=== PATIENT | male | born 1975 | race Caucasian/White ===

== ENCOUNTER 2019-04-16 08:05 | Outpatient (CLI) | payer OTHER, SELFPAY ==
[2019-04-16 08:21] LABS: Basophils Absolute Auto 0.1 K/mm3 (0.0-0.1); Basophils Percent Auto 0.7 % (0.2-1.2); Eosinophils Absolute Auto 0.2 K/mm3 (0-0.3); Eosinophils Percent Auto 2.3 % (0-4.4); Hematocrit 42.2 % (42.0-52.0); Hemoglobin 14.7 g/dL (14.0-18.0); Immature Granulocyte Absolute 0.05 K/mm3 (0.00-0.031); Immature Granulocyte Percent A 0.6 % (0-0.5); Lymphocytes Absolute Auto 1.31 K/mm3 (0.9-3.2); Lymphocytes Percent Auto 16.2 % (18.3-44.2); Mean Corpuscular HGB Conc 34.8 g/dl (32-36); Mean Corpuscular Hemoglobin 39.3 pg (26-34); Mean Corpuscular Volume 112.8 fl (80-100); Mean Platelet Volume 9.1 fl (7.4-10.4); Monocytes Absolute Auto 0.8 K/mm3 (0.1-0.6); Monocytes Percent Auto 10.4 % (2.6-8.5); Neutrophils Absolute Auto 5.6 K/mm3 (1.3-6.7); Neutrophils Percent Auto 69.8 % (45.5-73.1); Platelet Count Result 219 k/mm3 (150-375); Red Blood Count 3.74 M/mm3 (4.6-6.20); Red Cell Distribution Width 12.6 % (11.5-14.5); White Blood Count 8.1 K/mm3 (4.5-10.0)
== END 2019-04-16 08:06 | disposition home or self-care (01) ==
PROVIDERS: PCP Family Medicine Adolescent Medicine; Visit Provider Internal Medicine Hematology & Oncology
DX: D75.1 Secondary polycythemia (principal)
CPT/HCPCS: 36415; 85025

== ENCOUNTER 2020-01-06 08:22 | Outpatient (CLI) | payer OTHER, SELFPAY ==
[2020-01-06 08:41] LABS: Basophils Absolute Auto 0.1 K/mm3 (0.0-0.1); Basophils Percent Auto 0.7 % (0.2-1.2); Eosinophils Absolute Auto 0.2 K/mm3 (0-0.3); Eosinophils Percent Auto 2.5 % (0-4.4); Hemoglobin 11.9 g/dL (14.0-18.0); Immature Granulocyte Absolute 0.04 K/mm3 (0.00-0.031); Immature Granulocyte Percent A 0.6 % (0-0.5); Lymphocytes Absolute Auto 1.17 K/mm3 (0.9-3.2); Lymphocytes Percent Auto 17.5 % (18.3-44.2); Mean Corpuscular Hemoglobin 41.6 pg (26-34); Mean Corpuscular Volume 118.9 fl (80-100); Mean Platelet Volume 9.4 fl (7.4-10.4); Monocytes Absolute Auto 0.6 K/mm3 (0.1-0.6); Monocytes Percent Auto 8.2 % (2.6-8.5); Neutrophils Absolute Auto 4.7 K/mm3 (1.3-6.7); Neutrophils Percent Auto 70.5 % (45.5-73.1); Platelet Count Result 174 k/mm3 (150-375); Red Blood Count 2.86 M/mm3 (4.6-6.20); Red Cell Distribution Width 13.8 % (11.5-14.5); White Blood Count 6.7 K/mm3 (4.5-10.0)
[2020-01-06 08:53] LABS: Blood Urea Nitrogen 4 mg/dL (8-26); Carbon Dioxide 31 mmol/L (22-30); Chloride 95 mmol/L (98-109); Estimated Glomerular Filt Rate > 60; Glucose 126 mg/dL (70-105); Potassium 3.7 mmol/L (3.5-4.9); Sodium 138 mmol/L (138-146)
[2020-01-06 17:56] LABS: Iron 309 ug/dL (49-181)
[2020-01-06 18:00] LABS: Alanine Aminotransferase 53 U/L (4-50); Alkaline Phosphatase 101 U/L (38-126); Anion Gap 9 mmol/L (8-16); Aspartate Amino Transferase 111 U/L (17-59); Bilirubin,Total 1.2 mg/dL (0.2-1.3); Blood Urea Nitrogen 6 mg/dL (9-20); Calcium 9.1 mg/dL (8.4-10.2); Carbon Dioxide 32 mmol/L (22-30); Chloride 97 mmol/L (98-107); Estimated Glomerular Filt Rate > 60; Glucose 134 mg/dL (75-110); Lactate Dehydrogenase 708 U/L (313-618); Potassium 4.3 mmol/L (3.4-5.0); Sodium 138 mmol/L (137-145)
[2020-01-06 18:06] LABS: Percent Iron Saturation 88 % (20-50)
[2020-01-06 19:05] LABS: Folic Acid 1.6 ng/mL (2.76->20)
[2020-01-09 12:20] LABS: Methylmalonic Acid 133 nmol/L (87-318)
== END 2020-01-06 08:23 | disposition home or self-care (01) ==
PROVIDERS: PCP Family Medicine Adolescent Medicine; Visit Provider Internal Medicine Hematology & Oncology
DX: D64.9 Anemia, unspecified (principal); R53.83 Other fatigue; D75.1 Secondary polycythemia
CPT/HCPCS: 36415; 80048; 80053; 82607; 82728; 82746; 83540; 83550; 83615; 83921; 84443; 85025

== ENCOUNTER 2020-05-24 08:28 | Outpatient (CLI) | payer OTHER, SELFPAY ==
[2020-05-24 08:41] LABS: Basophils Absolute Auto 0.1 K/mm3 (0.0-0.1); Eosinophils Absolute Auto 0.2 K/mm3 (0-0.3); Eosinophils Percent Auto 1.6 % (0-4.4); Hematocrit 44.1 % (42.0-52.0); Hemoglobin 14.9 g/dL (14.0-18.0); Immature Granulocyte Absolute 0.06 K/mm3 (0.00-0.031); Immature Granulocyte Percent A 0.6 % (0-0.5); Lymphocytes Absolute Auto 1.67 K/mm3 (0.9-3.2); Lymphocytes Percent Auto 17.6 % (18.3-44.2); Mean Corpuscular HGB Conc 33.8 g/dl (32-36); Mean Corpuscular Volume 97.6 fl (80-100); Mean Platelet Volume 9.4 fl (7.4-10.4); Monocytes Absolute Auto 0.8 K/mm3 (0.1-0.6); Monocytes Percent Auto 8.8 % (2.6-8.5); Neutrophils Absolute Auto 6.7 K/mm3 (1.3-6.7); Neutrophils Percent Auto 70.4 % (45.5-73.1); Platelet Count Result 173 k/mm3 (150-375); Red Blood Count 4.52 M/mm3 (4.6-6.20); Red Cell Distribution Width 14.6 % (11.5-14.5); White Blood Count 9.5 K/mm3 (4.5-10.0)
== END 2020-05-24 08:29 | disposition home or self-care (01) ==
LOC: ANHLAB 08:30
PROVIDERS: PCP Family Medicine Adolescent Medicine; Visit Provider Internal Medicine Hematology & Oncology
DX: D75.1 Secondary polycythemia (principal)
CPT/HCPCS: 36415; 85025

== ENCOUNTER 2020-09-02 08:24 | Outpatient (CLI) | payer OTHER, SELFPAY ==
[2020-09-02 08:50] LABS: Basophils Absolute Auto 0.1 K/mm3 (0.0-0.1); Basophils Percent Auto 0.6 % (0.2-1.2); Eosinophils Absolute Auto 0.2 K/mm3 (0-0.3); Hematocrit 34.7 % (42.0-52.0); Hemoglobin 11.8 g/dL (14.0-18.0); Immature Granulocyte Absolute 0.03 K/mm3 (0.00-0.031); Immature Granulocyte Percent A 0.4 % (0-0.5); Lymphocytes Absolute Auto 1.38 K/mm3 (0.9-3.2); Lymphocytes Percent Auto 16.6 % (18.3-44.2); Mean Corpuscular Hemoglobin 35.8 pg (26-34); Mean Corpuscular Volume 105.2 fl (80-100); Mean Platelet Volume 8.7 fl (7.4-10.4); Monocytes Absolute Auto 0.6 K/mm3 (0.1-0.6); Monocytes Percent Auto 7.3 % (2.6-8.5); Neutrophils Absolute Auto 6.1 K/mm3 (1.3-6.7); Neutrophils Percent Auto 73.1 % (45.5-73.1); Platelet Count Result 190 k/mm3 (150-375); Red Cell Distribution Width 17.2 % (11.5-14.5); White Blood Count 8.3 K/mm3 (4.5-10.0)
[2020-09-02 11:43] LABS: Iron 248 ug/dL (49-181)
[2020-09-02 11:47] LABS: Alanine Aminotransferase 63 U/L (4-50); Alkaline Phosphatase 105 U/L (38-126); Anion Gap 11 mmol/L (8-16); Aspartate Amino Transferase 80 U/L (17-59); Bilirubin,Total 0.8 mg/dL (0.2-1.3); Blood Urea Nitrogen 5 mg/dL (9-20); Calcium 9.4 mg/dL (8.4-10.2); Carbon Dioxide 27 mmol/L (22-30); Chloride 98 mmol/L (98-107); Estimated Glomerular Filt Rate > 60; Glucose 172 mg/dL (75-110); Potassium 4.1 mmol/L (3.4-5.0); Sodium 136 mmol/L (137-145)
[2020-09-02 11:52] LABS: Percent Iron Saturation 91 % (20-50)
== END 2020-09-02 08:25 | disposition home or self-care (01) ==
PROVIDERS: PCP Family Medicine Adolescent Medicine; Visit Provider Internal Medicine Hematology & Oncology
DX: D75.1 Secondary polycythemia (principal)
CPT/HCPCS: 36415; 80053; 82728; 83540; 83550; 85025

== ENCOUNTER 2020-09-16 02:48 | Day surgery (SDC) | payer OTHER, SELFPAY ==
[2020-09-08 12:54] VITALS: BMI 32.8
[2020-09-16 06:52] VITALS: BP 150/93; PULSE 110; RESP 18; TEMP 36.6; O2SAT 100; BMI 32.6
[2020-09-16] MEDS: LACTATED RINGERS 1,000 ML 150 ML IV CONT (07:02)
[2020-09-16] MEDS: ONDANSETRON INJ 4 MG/2 ML VIAL IV PUSH (07:20)
--- NOTE | 2020-09-16 07:58 | P.CONGI_ITS ---
Assessment and Plan Assessment and plan (1) Constipation: Code(s): K59.00 - Constipation, unspecified Status: Acute Assessment and Plan: Patient with recent episode of fecal impaction. Patient referred for c olonoscopy. Further recommendations will be given after endoscopy. Patient currently followed by Dr. Caro. MiraLax or similar laxative on a daily basis may be of benefit. (2) Alcohol abuse: Code(s): F10.10 - Alcohol abuse, uncomplicated Status: Acute Assessment and Plan: Alcohol avoidance strongly encourage. This appears to be contributing to his anemia and macrocytosis. (3) Macrocytosis: Code(s): D75.89 - Other specified diseases of blood and blood-forming organs Status: Acute GI Consult Note Consult date/time: 09/16/20 07:58 HPI: Harpreet England is a 45 year old male Presents because of constipation. Patient has a long history of alcohol abuse. He continues to drink at least a pt a day. Currently followed by Dr. Caro. He was found to have macrocytosis is related to his alcohol abuse. Apparently also had bone marrow suppression mild anemia that is improving. He reports having had severe abdominal pain for which she presented to [facility] in [facility]. CT scan suggested fecal impaction. Patient is referred for colonoscopy to exclude organic disease of the colon. Review of Systems Review of Systems: All systems reviewed & are unremarkable except as noted in HPI and below PMFSH Past Medical History Medical History (Updated 09/16/20 @ 08:00 by Gilson Salas MD) Anemia Peripheral neuropathy Social History Social History Smoking packs per day: 1 Smoking cigarettes per day: 20.0 Years smoked: 3 Smoking pack-years: 3.00 Smoking status: Former smoker Tobacco type: cigarettes Alcohol intake: current Substance use: current Substance use type: marijuana Living arrangements: alone Spiritual care concerns: No Meds Home Medications and Allergies Home Medications Medication Instructions Recorded Confirmed Type docusate sodium 100 mg PO BID PRN 09/08/20 09/16/20 History gabapentin 300 mg PO BID 09/08/20 09/16/20 History sennosides-docusate sodium 1 tab-cap PO BID PRN 09/08/20 09/16/20 History [Senna-S] Allergies Allergy/AdvReac Type Severity Reaction Status Date / Time No Known Allergies Allergy Verified 09/16/20 06:51 Vital Signs Vital Signs - 24 hr 09/16/20 06:52 Temperature 97.8 F Pulse Rate 110 H Respiratory Rate 18 Blood Pressure 150/93 H Pulse Oximetry 100 Exam Narrative: Physical exam reveals patient be alert. Vital signs stable. HEENT exam reveals rosacea. Lungs are clear to auscultation and percussion. Heart is without murmur or extra sounds. Abdominal exam bowel sounds are present soft nontender with no hepatosplenomegaly. Digital external rectal exam is normal.
--- NOTE | 2020-09-16 07:58 | WPDANESEPPF ---
Anes - Initial Pre Proc Eval Procedure: Operation Date: 09/16/20 08:00 Proposed Procedures p Colonoscopy - Gilson Salas MD Date/Time: 09/16/20 07:58 Surgeon: Gilson Salas MD Pre Op Diagnosis: bowel impaction Patient Data Age: 45 Gender: M Height: 1.88 m Weight: 115.5 kg Last Vital Signs Temp 97.8 F 09/16/20 06:52 Pulse 110 H 09/16/20 06:52 Resp 18 09/16/20 06:52 BP 150/93 H 09/16/20 06:52 Pulse Ox 100 09/16/20 06:52 Allergies Allergy/AdvReac Type Severity Reaction Status Date / Time No Known Allergies Allergy Verified 09/16/20 06:51 Home Medications Medication Instructions Recorded Confirmed Type docusate sodium 100 mg PO BID PRN 09/08/20 09/16/20 History gabapentin 300 mg PO BID 09/08/20 09/16/20 History sennosides-docusate sodium 1 tab-cap PO BID PRN 09/08/20 09/16/20 History [Senna-S] Patient hx anesthesia problems: none Family hx anesthesia problems: none PMFSH Past Medical History Medical History (Updated 09/16/20 @ 07:58 by Allan Lui MD) Anemia Peripheral neuropathy Social History Social History Smoking packs per day: 1 Smoking cigarettes per day: 20.0 Years smoked: 3 Smoking pack-years: 3.00 Smoking status: Former smoker Tobacco type: cigarettes Alcohol intake: current Substance use: current Substance use type: marijuana Living arrangements: alone Spiritual care concerns: No Anes - Eval Final PreProcedure Day of Procedure 09/16/20 07:58 Patient weight: obese Heart: regular rate and rhythm Lungs: clear to auscultation Airway: Mallampati scale class II Neurological: alert and oriented Last oral intake: >/= 8 hours ASA classification: III Emergent: no Anesthetic plan: proceed Anesthesia type and monitoring: general GIVS and standard monitoring Informed Consent: The patient's anesthetic plan and its attendant risks and benefits were discussed with the patient/family/POA. Questions were solicited and answers provided to the satisfaction of the patient/family/POA.
[2020-09-16 08:36] VITALS: BP 131/90; PULSE 84; RESP 16; O2SAT 94
[2020-09-16 08:46] VITALS: BP 156/85; PULSE 88; RESP 20; O2SAT 95
[2020-09-16 08:56] VITALS: BP 117/76; PULSE 85; RESP 18; O2SAT 100
== END 2020-09-16 09:01 | disposition home or self-care (01) ==
PROVIDERS: Visit Provider Internal Medicine Gastroenterology
PROC: 0DJD8ZZ Inspection of Lower Intestinal Tract, Via Natural or Artificial Opening Endoscopic (ICD-10-PCS; CPT 45378; principal; 2020-09-16 08:00)
DX: K59.00 Constipation, unspecified (principal); D12.2 Benign neoplasm of ascending colon; K57.30 Diverticulosis of large intestine without perforation or abscess without bleeding; F10.10 Alcohol abuse, uncomplicated; D75.89 Other specified diseases of blood and blood-forming organs; D64.9 Anemia, unspecified; G62.9 Polyneuropathy, unspecified; Z87.891 Personal history of nicotine dependence; F12.90 Cannabis use, unspecified, uncomplicated; E66.9 Obesity, unspecified; Z68.32 Body mass index [BMI] 32.0-32.9, adult
CPT/HCPCS: 45385; 88305; J2405; J2704; J7120

== ENCOUNTER 2020-09-28 10:11 | Outpatient (CLI) | payer OTHER, SELFPAY ==
[2020-09-28 10:32] LABS: Basophils Absolute Auto 0.1 K/mm3 (0.0-0.1); Basophils Percent Auto 0.7 % (0.2-1.2); Eosinophils Absolute Auto 0.1 K/mm3 (0-0.3); Eosinophils Percent Auto 1.2 % (0-4.4); Hematocrit 36.4 % (42.0-52.0); Hemoglobin 12.5 g/dL (14.0-18.0); Immature Granulocyte Absolute 0.06 K/mm3 (0.00-0.031); Immature Granulocyte Percent A 0.7 % (0-0.5); Lymphocytes Absolute Auto 1.24 K/mm3 (0.9-3.2); Mean Corpuscular HGB Conc 34.3 g/dl (32-36); Mean Corpuscular Hemoglobin 37.7 pg (26-34); Mean Corpuscular Volume 109.6 fl (80-100); Mean Platelet Volume 8.7 fl (7.4-10.4); Monocytes Absolute Auto 0.6 K/mm3 (0.1-0.6); Monocytes Percent Auto 7.2 % (2.6-8.5); Neutrophils Absolute Auto 6.8 K/mm3 (1.3-6.7); Neutrophils Percent Auto 76.2 % (45.5-73.1); Platelet Count Result 183 k/mm3 (150-375); Red Blood Count 3.32 M/mm3 (4.6-6.20); Red Cell Distribution Width 17.2 % (11.5-14.5); White Blood Count 8.9 K/mm3 (4.5-10.0)
[2020-09-28 13:09] LABS: Iron 257 ug/dL (49-181)
[2020-09-28 13:24] LABS: Percent Iron Saturation 92 % (20-50)
== END 2020-09-28 10:12 | disposition home or self-care (01) ==
LOC: ANHLAB 10:20
PROVIDERS: Visit Provider Internal Medicine Hematology & Oncology
DX: D75.1 Secondary polycythemia (principal)
CPT/HCPCS: 36415; 82607; 82728; 83540; 83550; 85025

== ENCOUNTER 2021-01-27 09:01 | Outpatient (CLI) | payer OTHER, SELFPAY ==
[2021-01-27 09:17] LABS: Basophils Absolute Auto 0.1 K/mm3 (0.0-0.1); Basophils Percent Auto 0.7 % (0.2-1.2); Eosinophils Absolute Auto 0.2 K/mm3 (0-0.3); Eosinophils Percent Auto 2.1 % (0-4.4); Hematocrit 30.9 % (42.0-52.0); Hemoglobin 10.6 g/dL (14.0-18.0); Immature Granulocyte Absolute 0.05 K/mm3 (0.00-0.031); Immature Granulocyte Percent A 0.7 % (0-0.5); Lymphocytes Absolute Auto 1.27 K/mm3 (0.9-3.2); Lymphocytes Percent Auto 17.5 % (18.3-44.2); Mean Corpuscular HGB Conc 34.3 g/dl (32-36); Mean Corpuscular Hemoglobin 41.4 pg (26-34); Mean Corpuscular Volume 120.7 fl (80-100); Mean Platelet Volume 9.1 fl (7.4-10.4); Monocytes Absolute Auto 0.3 K/mm3 (0.1-0.6); Monocytes Percent Auto 4.4 % (2.6-8.5); Neutrophils Absolute Auto 5.4 K/mm3 (1.3-6.7); Neutrophils Percent Auto 74.6 % (45.5-73.1); Platelet Count Result 155 k/mm3 (150-375); Red Blood Count 2.56 M/mm3 (4.6-6.20); White Blood Count 7.2 K/mm3 (4.5-10.0)
[2021-01-27 09:21] LABS: Carbon Dioxide 27 mmol/L (22-30); Chloride 94 mmol/L (98-109); Estimated Glomerular Filt Rate > 60; Glucose 186 mg/dL (70-105); Potassium 3.3 mmol/L (3.5-4.9); Sodium 137 mmol/L (138-146)
[2021-01-27 09:22] LABS: Blood Urea Nitrogen < 3 mg/dL (8-26)
[2021-01-27 12:29] LABS: Alanine Aminotransferase 37 U/L (4-50); Albumin Level 3.9 g/dL (3.5-5.1); Alkaline Phosphatase 115 U/L (38-126); Anion Gap 14 mmol/L (8-16); Aspartate Amino Transferase 85 U/L (17-59); Blood Urea Nitrogen 4 mg/dL (9-20); Carbon Dioxide 25 mmol/L (22-30); Chloride 94 mmol/L (98-107); Estimated Glomerular Filt Rate > 60; Glucose 180 mg/dL (65-110); Potassium 3.3 mmol/L (3.4-5.0); Sodium 133 mmol/L (137-145)
[2021-01-27 12:30] LABS: Iron 219 ug/dL (49-181)
[2021-01-27 12:41] LABS: Percent Iron Saturation 89 % (20-50)
== END 2021-01-27 09:02 | disposition home or self-care (01) ==
LOC: ANHLAB 09:03
PROVIDERS: Visit Provider Internal Medicine Hematology & Oncology
DX: E83.19 Other disorders of iron metabolism (principal); D75.1 Secondary polycythemia
CPT/HCPCS: 36415; 80053; 82374; 82435; 82565; 82728; 82947; 83540; 83550; 84132; 84295; 84520; 85025

== ENCOUNTER 2021-02-06 09:59 | Outpatient (CLI) | payer OTHER, SELFPAY ==
[2021-02-06 10:18] LABS: Basophils Percent Auto 0.6 % (0.2-1.2); Eosinophils Absolute Auto 0.1 K/mm3 (0-0.3); Eosinophils Percent Auto 2.4 % (0-4.4); Hematocrit 27.9 % (42.0-52.0); Hemoglobin 9.5 g/dL (14.0-18.0); Immature Granulocyte Absolute 0.05 K/mm3 (0.00-0.031); Immature Granulocyte Percent A 0.9 % (0-0.5); Lymphocytes Absolute Auto 1.06 K/mm3 (0.9-3.2); Lymphocytes Percent Auto 19.7 % (18.3-44.2); Mean Corpuscular HGB Conc 34.1 g/dl (32-36); Mean Corpuscular Hemoglobin 41.7 pg (26-34); Mean Corpuscular Volume 122.4 fl (80-100); Mean Platelet Volume 9.5 fl (7.4-10.4); Monocytes Absolute Auto 0.3 K/mm3 (0.1-0.6); Monocytes Percent Auto 5.9 % (2.6-8.5); Neutrophils Absolute Auto 3.8 K/mm3 (1.3-6.7); Neutrophils Percent Auto 70.5 % (45.5-73.1); Platelet Count Result 116 k/mm3 (150-375); Red Blood Count 2.28 M/mm3 (4.6-6.20); Red Cell Distribution Width 13.2 % (11.5-14.5); White Blood Count 5.4 K/mm3 (4.5-10.0)
[2021-02-06 10:41] LABS: Alanine Aminotransferase 29 U/L (4-50); Albumin Level 3.7 g/dL (3.5-5.1); Alkaline Phosphatase 100 U/L (38-126); Anion Gap 11 mmol/L (8-16); Aspartate Amino Transferase 74 U/L (17-59); Blood Urea Nitrogen 6 mg/dL (9-20); Carbon Dioxide 27 mmol/L (22-30); Chloride 94 mmol/L (98-107); Estimated Glomerular Filt Rate > 60; Glucose 156 mg/dL (65-110); Potassium 3.8 mmol/L (3.4-5.0); Sodium 132 mmol/L (137-145)
[2021-02-06 11:10] LABS: Iron 225 ug/dL (49-181)
[2021-02-06 11:19] LABS: Percent Iron Saturation 90 % (20-50)
[2021-02-06 11:47] LABS: Folic Acid 1.4 ng/mL (2.76->20)
== END 2021-02-06 10:00 | disposition home or self-care (01) ==
LOC: ANHLAB 10:04
PROVIDERS: Visit Provider Internal Medicine Hematology & Oncology
DX: D64.9 Anemia, unspecified (principal)
CPT/HCPCS: 36415; 80053; 82607; 82728; 82746; 83540; 83550; 85025

== ENCOUNTER 2021-04-24 11:00 | Outpatient (CLI) | payer OTHER, SELFPAY ==
[2021-04-24 11:53] LABS: Eosinophils Absolute Auto 0.1 K/mm3 (0-0.3); Eosinophils Percent Auto 1.3 % (0-4.4); Immature Granulocyte Absolute 0.04 K/mm3 (0.00-0.031); Immature Granulocyte Percent A 0.8 % (0-0.5); Lymphocytes Percent Auto 14.7 % (18.3-44.2); Mean Corpuscular HGB Conc 34.6 g/dl (32-36); Mean Corpuscular Hemoglobin 42.1 pg (26-34); Mean Corpuscular Volume 121.4 fl (80-100); Mean Platelet Volume 12.3 fl (7.4-10.4); Monocytes Absolute Auto 0.1 K/mm3 (0.1-0.6); Monocytes Percent Auto 2.3 % (2.6-8.5); Neutrophils Absolute Auto 3.8 K/mm3 (1.3-6.7); Neutrophils Percent Auto 80.9 % (45.5-73.1); Platelet Count Result 70 k/mm3 (150-375); Red Blood Count 1.26 M/mm3 (4.6-6.20); Red Cell Distribution Width 14.1 % (11.5-14.5); White Blood Count 4.8 K/mm3 (4.5-10.0)
[2021-04-24 11:55] LABS: Hematocrit 15.3 % (42.0-52.0); Hemoglobin 5.3 g/dL (14.0-18.0)
[2021-04-24 11:57] LABS: Hypochromasia 1+ (NORMAL); Platelet Estimate Decreased (Adequate)
[2021-04-24 11:58] LABS: Poikilocytosis 2+ (NORMAL); Stomatocytes 2+ (NORMAL)
[2021-04-24 12:36] LABS: Immature Reticulocyte Fraction 24.3 % (3.0-15.9); Reticulocyte Percent 1.74 % (0.7-4.3); Reticulocytes Absolute 0.02 B/L (32.2-175.7)
[2021-04-24 13:01] LABS: Iron 219 ug/dL (49-181)
[2021-04-24 13:07] LABS: Alanine Aminotransferase 22 U/L (4-50); Albumin Level 3.3 g/dL (3.5-5.1); Alkaline Phosphatase 106 U/L (38-126); Anion Gap 8 mmol/L (8-16); Aspartate Amino Transferase 65 U/L (17-59); Bilirubin,Total 1.3 mg/dL (0.2-1.3); Blood Urea Nitrogen 8 mg/dL (9-20); Calcium 8.2 mg/dL (8.4-10.2); Carbon Dioxide 28 mmol/L (22-30); Chloride 86 mmol/L (98-107); Estimated Glomerular Filt Rate > 60; Glucose 136 mg/dL (65-110); Lactate Dehydrogenase 728 U/L (313-618); Potassium 3.4 mmol/L (3.4-5.0); Sodium 122 mmol/L (137-145)
[2021-04-24 13:14] LABS: Percent Iron Saturation 83 % (20-50)
[2021-04-24 14:11] LABS: Folic Acid 1.4 ng/mL (2.76->20)
== END 2021-04-24 11:01 | disposition home or self-care (01) ==
PROVIDERS: Visit Provider Internal Medicine Hematology & Oncology
DX: D64.9 Anemia, unspecified (principal); E83.19 Other disorders of iron metabolism; D75.1 Secondary polycythemia
CPT/HCPCS: 36415; 80053; 82607; 82728; 82746; 83540; 83550; 83615; 84443; 85025; 85046; 86850; 86900; 86901

== ENCOUNTER 2021-05-15 10:44 | Outpatient (CLI) | payer OTHER, SELFPAY ==
[2021-05-15 11:00] LABS: Basophils Percent Auto 0.2 % (0.2-1.2); Eosinophils Absolute Auto 0.1 K/mm3 (0-0.3); Eosinophils Percent Auto 2.6 % (0-4.4); Immature Granulocyte Absolute 0.03 K/mm3 (0.00-0.031); Immature Granulocyte Percent A 0.7 % (0-0.5); Lymphocytes Absolute Auto 0.66 K/mm3 (0.9-3.2); Lymphocytes Percent Auto 15.9 % (18.3-44.2); Mean Corpuscular HGB Conc 33.2 g/dl (32-36); Mean Corpuscular Hemoglobin 35.3 pg (26-34); Mean Corpuscular Volume 106.4 fl (80-100); Mean Platelet Volume 11.9 fl (7.4-10.4); Monocytes Absolute Auto 0.1 K/mm3 (0.1-0.6); Monocytes Percent Auto 1.2 % (2.6-8.5); Neutrophils Absolute Auto 3.3 K/mm3 (1.3-6.7); Neutrophils Percent Auto 79.4 % (45.5-73.1); Platelet Count Result 74 k/mm3 (150-375); Red Blood Count 1.87 M/mm3 (4.6-6.20); White Blood Count 4.2 K/mm3 (4.5-10.0)
[2021-05-15 11:04] LABS: Hemoglobin 6.6 g/dL (14.0-18.0)
[2021-05-15 11:05] LABS: Hematocrit 19.9 % (42.0-52.0)
[2021-05-15 11:06] LABS: Atypical Lymphocytes Present; Hypochromasia 2+ (NORMAL); Platelet Estimate Decreased (Adequate)
== END 2021-05-15 10:45 | disposition home or self-care (01) ==
LOC: ANHLAB 10:45
PROVIDERS: Visit Provider Internal Medicine Hematology & Oncology
DX: D64.9 Anemia, unspecified (principal)
CPT/HCPCS: 36415; 85025

== ENCOUNTER 2021-05-15 16:55 | Inpatient (IN) | payer OTHER, SELFPAY ==
[2021-05-15] VITALS (13 sets, daily range): BP systolic 100–132; BP diastolic 45–66; PULSE 96–107; RESP 16–24; TEMP 36.2–37.1; O2SAT 95–100; BMI 31.9
--- NOTE | ~2021-05-15 | US_ITS ---
. EXAMINATION: US renal BI DATE: 05/16/2021 15:34 INDICATION: Right kidney mass. TECHNIQUE: Multiple ultrasound grayscale images of the kidneys were obtained. COMPARISON: CT abdomen and pelvis 05/16/2021 FINDINGS: The right kidney measures 12.5 x 5.5 x 5.7 cm. The left kidney measures 11.8 x 4.8 x 5.8 cm. The kidn eys demonstrate normal parenchymal echogenicity. There is no hydronephrosis. The bladder is normal. T here is diffuse hepatic steatosis. IMPRESSION: 1. No right kidney mass identified. Abdomen MRI without and with contrast is recommended. Reviewed, dictated and finalized at location A. IMPRESSION: 1. No right kidney mass identified. Abdomen MRI without and with contrast is re commended.
--- NOTE | ~2021-05-15 | XR_ITS ---
XR shoulder RT min 2V DATE: 05/15/2021 18:09 INDICATION: Fall. Right shoulder pain. TECHNIQUE: 4 views COMPARISON: None FINDINGS: No fracture or dislocation, periosteal reaction or bone destruction. Normal alignment at th e acromioclavicular and glenohumeral joints. No abnormal soft tissue calcification. IMPRESSION: No significant abnormality Reviewed, dictated and finalized at location A. IMPRESSION: No significant abnormality
--- NOTE | ~2021-05-15 | CT_ITS ---
EXAMINATION: CT chest abdomen pelvis w con DATE: 05/16/2021 02:56 INDICATION: Fall presenting with anemia and right-sided rib pain. TECHNIQUE: Computed tomography (CT) of the chest, abdomen, and pelvis was performed with 100 mL Omnip aque-350 intravenous contrast. Automated exposure control and iterative reconstruction technique were employed. The dose-length product was 1899.96 mGy-cm. COMPARISON: None FINDINGS: CHEST CT: Minimal dependent atelectasis in the bilateral lower lobes. No pneumonia, pulmonary edema, pleural ef fusion or pneumothorax. Heart size is normal. Atherosclerotic coronary artery calcific location. No p ericardial effusion. Thoracic aorta is normal in caliber with no dissection. No pathologically enlarg ed thoracic lymphadenopathy. Likely developmental but if the costochondral cartilage of the anterior left fifth rib. No acute osseous abnormality. ABDOMEN/PELVIS CT: Diffuse hepatic steatosis. Splenomegaly measuring 18 cm in maximal length. Gallbladder, pancreas, edie ateral adrenal glands and left kidney are normal. 1.6 cm right renal lesion with heterogeneous attenu ation raising suspicion for renal cell carcinoma. Normal appendix. There is fluid throughout the elvin ls consistent with diarrhea. No corresponding wall thickening. Mild sigmoid diverticulosis without ad jacent inflammatory change to suggest diverticulitis. Bladder is normal. No free intraperitoneal gas or fluid. No pathologically enlarged abdominal or pelvic lymphadenopathy. Mild thoracic and mild lowe r lumbar spondylosis. IMPRESSION: 1. Fluid throughout the otherwise normal-appearing bowels consistent with nonspecific diarrhea. Corre late clinically for gastroenteritis. 2. 1.6 mm indeterminate right renal lesion which is suspicious for renal cell carcinoma. Recommend fu rther evaluation with pre and postcontrast MRI or CT. Dr. Faria discussed these findings with Dr. Lockhart at 9:00 AM. 3. Diffuse hepatic steatosis. 4. Nonspecific splenomegaly. 5. No rib fractures or acute cardiopulmonary disease. Reviewed, dictated and finalized at location A. IMPRESSION: 1. Fluid throughout the otherwise normal-appearing bowels consistent with nonsp ecific diarrhea. Correlate clinically for gastroenteritis. 2. 1.6 mm indeterminate right renal lesion which is suspicious for renal cell c arcinoma. Recommend further evaluation with pre and postcontrast MRI or CT. Dr. Faria discussed these findings with Dr. Lockhart at 9:00 AM. 3. Diffuse hepatic steatosis. 4. Nonspecific splenomegaly. 5. No rib fractures or acute cardiopulmonary disease.
--- NOTE | ~2021-05-15 | CT_ITS ---
EXAMINATION: CT brain wo con DATE: 05/15/2021 17:57 INDICATION: Fall. Syncope. TECHNIQUE: Computed tomography (CT) of the head was performed without intravenous contrast. The mA wa s adjusted according to patient size. Iterative reconstruction technique was employed. Exam dose: 68 1.00 mGy-cm total exam DLP. COMPARISON: None FINDINGS: Carotid siphon internal carotid arteries and vertebral arteries. No intracranial mass lesion or hemorrhage or cerebrovascular accident. No midline shift or mass effec t. Normal ventricular size. No subdural or epidural hematoma. No fracture or bone destruction of the cranial vault. Included paranasal sinuses and mastoid air cells are normally developed and aerated. IMPRESSION: Cerebral atherosclerosis and chronic small vessel ischemic changes of cerebral white mat ter No acute intracranial finding Reviewed, dictated and finalized at Location A. Reviewed, dictated and finalized at location A. IMPRESSION: Cerebral atherosclerosis and chronic small vessel ischemic changes of cerebral white matter No acute intracranial finding
--- NOTE | ~2021-05-15 | XR_ITS ---
XR ribs RT 2V w CXR 2V DATE: 05/15/2021 18:09 INDICATION: Right-sided rib pain following fall TECHNIQUE: AP and lateral views. 3 views of the right ribs. COMPARISON: 07/22/2017 two-view chest FINDINGS: No right rib fracture or bone destruction is evident. Normal heart size. No hilar or mediastinal enlargement. No pulmonary infiltrate or consolidation, ple ural effusion or pulmonary vascular congestion or pneumothorax. IMPRESSION: No evidence of right rib fracture Reviewed, dictated and finalized at location A.
--- NOTE | 2021-05-15 16:59 | ECG_ITS ---
Measurements Intervals [place] Rate: 107 P: 20 TX: 162 QRS: -10 QRSD: 86 T: 25 QT: 379 QTc: 506 Interpretive Statements SINUS TACHYCARDIA NONSPECIFIC ST & T-WAVE ABNORMALITY ABNORMAL RHYTHM ECG NO PREVIOUS ECG AVAILABLE FOR COMPARISON Electronically Signed On 05-16-2021 17:03:37 CDT by Jake Braun M.D.
--- NOTE | 2021-05-15 17:04 | PC.NURSE ---
@ 1628 I called patient to confirm with him a time to come for his 2 u prbc for tomorrow, tuesday 05/16. When patient answered I told him I was calling from [facility], he sounded disoriented and said that he was heading there now. That he had passed out three times at home so he was heading to [place]. I told him to go into the ER. I then asked him if he was already on his way and if he was driving. He said he had just left [place] and was heading this way, and he was driving because he didn't have anyone else . I asked him to nail puller and i would call him an ambulance, that it wasn't safe for him to drive if he had been passing out. He insisted he was just down the street and didn't want to nail puller. His phone kept cutting out and we eventually got disconnected. I called the ER to let them know to expect this patient coming, that he was scheduled to get blood with us in the [facility] tomorrow and had already been typed and screened if they needed blood for him during his er admission. I tried to call back the patient to see if he had made it to the er, no answer. I called blood bank to give them a notice that the patient schedule for tomorrow for blood was expected to be in the ER, if they ended up needing it. @ 1649 patient called to let me know he was pulled up to the er entrance and needed assistance getting out of his car. i called er to let them know and the spa receptionist told me she'd send someone out there to help him. I called dr estefani solis. he called back and i updated him that the patient had just arrived to the ER and had been passing out at home and to follow up with the er doctor if he had any other questions.
[2021-05-15 17:18] LABS: Eosinophils Absolute Auto 0.1 K/mm3 (0-0.3); Eosinophils Percent Auto 1.5 % (0-4.4); Immature Granulocyte Absolute 0.03 K/mm3 (0.00-0.031); Immature Granulocyte Percent A 0.6 % (0-0.5); Immature Platelet Fraction Pct 11.4 % (0.9-11.2); Lymphocytes Absolute Auto 1.12 K/mm3 (0.9-3.2); Mean Corpuscular HGB Conc 33.5 g/dl (32-36); Mean Corpuscular Hemoglobin 35.7 pg (26-34); Mean Corpuscular Volume 106.5 fl (80-100); Mean Platelet Volume 11.6 fl (7.4-10.4); Monocytes Absolute Auto 0.1 K/mm3 (0.1-0.6); Monocytes Percent Auto 2.2 % (2.6-8.5); Neutrophils Percent Auto 74.7 % (45.5-73.1); Platelet Count Result 70 k/mm3 (150-375); Red Blood Count 1.68 M/mm3 (4.6-6.20); Red Cell Distribution Width 24.1 % (11.5-14.5); White Blood Count 5.3 K/mm3 (4.5-10.0)
[2021-05-15 17:24] LABS: Hematocrit 17.9 % (42.0-52.0)
[2021-05-15 17:31] LABS: INR 1.3; Partial Thromboplastin Time 35.7 SECONDS (22.3-36.8); Prothrombin Time 15.9 Seconds (11.1-14.7)
[2021-05-15 17:37] LABS: Alanine Aminotransferase 27 U/L (4-50); Albumin Level 3.4 g/dL (3.5-5.1); Alkaline Phosphatase 80 U/L (38-126); Anion Gap 13 mmol/L (8-16); Aspartate Amino Transferase 61 U/L (17-59); Bilirubin,Total 1.6 mg/dL (0.2-1.3); Blood Urea Nitrogen 9 mg/dL (9-20); Calcium 8.5 mg/dL (8.4-10.2); Carbon Dioxide 22 mmol/L (22-30); Chloride 92 mmol/L (98-107); Estimated Glomerular Filt Rate > 60; Glucose 155 mg/dL (65-110); Potassium 2.5 mmol/L (3.4-5.0); Sodium 127 mmol/L (137-145)
--- NOTE | 2021-05-15 18:00 | ED.SYNCOPE ---
HPI - Syncope General Chief Complaint: Syncope Stated Complaint: syncope Time Seen by Provider: 05/15/21 17:08 Source: patient Mode of arrival: wheelchair Limitations: no limitations History of Present Illness HPI narrative: This is a 45-year-old male that presents to the emergency department for syncopal episode today. Reports he was at the gas station and he started to feel very lightheaded. He had to sit down and almost completely blacked out. Reports he has recently been struggling with anemia. He just had a blood transfusion 2 days ago. He had blood work done at Dr. Caro's office today and was told his hemoglobin is once again low. He is unsure if he hit his head. He reports he has been having trouble with shortness of breath. Also reports swelling in his legs. He denies any bright red blood in the stool or dark stools. He has been having diarrhea the last couple of days. Denies chest pain, vision changes, vomiting, numbness, or weakness. Related Data Home Medications Medication Instructions Recorded Confirmed docusate sodium 100 mg PO BID PRN 09/08/20 04/26/21 gabapentin 300 mg PO BID 09/08/20 04/26/21 sennosides-docusate sodium 1 tab-cap PO BID PRN 09/08/20 04/26/21 [Senna-S] Allergies Allergy/AdvReac Type Severity Reaction Status Date / Time No Known Allergies Allergy Verified 04/26/21 11:11 Review of Systems Review of Systems: CONSTITUTIONAL: Denies fever EYES: Denies visual changes CARDIOVASCULAR: Reports edema. Denies chest pain, palpitations RESPIRATORY: Reports dyspnea. GASTROINTESTINAL: Denies vomiting NEUROLOGIC: Denies headache, numbness, or weakness. All systems reviewed & are unremarkable except as noted in HPI and below PMFSH Past Medical History Medical History (Updated 05/15/21 @ 20:44 by Jacquie Hua PA-C) Anemia Peripheral neuropathy Social History Social History Smoking packs per day: 1 Smoking cigarettes per day: 20.0 Years smoked: 3 Smoking pack-years: 3.00 Smoking status: Former smoker Tobacco type: cigarettes Alcohol intake: current Substance use: current Substance use type: marijuana Spiritual care concerns: No Exam Narrative: GENERAL: Well-appearing, well-nourished, and in no acute distress. HEAD: Normocephalic, atraumatic. EYES: PERRLA and EOMI. ENT: Nares clear, no rhinorrhea or epistaxis. Mucous membranes moist. Oropharynx without tonsillar hypertrophy exudate or other lesions. Bilateral cerumen impaction NECK: Supple. No adenopathy or masses. CHEST: Clear to auscultation. No respiratory distress. No wheezes rales or rhonchi HEART: Regular rate and rhythm. No murmur heard. Normal peripheral pulses. EXTREMITIES: Normal range of motion. 1+ pitting edema to the bilateral lower extremities. No obvious deformity. Strength equal in bilateral upper and lower extremities (5/5) SKIN: Warm, dry, no rash. NEURO: No focal deficits. Alert and oriented x3. Cranial nerves II through XII grossly intact PSYCH: Normal mood and affect RECTAL: Hemoccult positive Course Consultations Consultation #1: Spoke with hospitalist about patient and work-up who accepts admission Date: 05/15/21 Consultation #2: Spoke with Dr. Salas who will consult Date: 05/15/21 Consultation #3: Spoke with hematology, Dr. Caro, consult will be to Dr. Goyal who is currently glass vial bending conveyor feeder for him Date: 05/15/21 Vital Signs Vital signs: Vital Signs Temperature 98.0 F 05/15/21 17:01 Pulse Rate 107 H 05/15/21 17:01 Respiratory Rate 24 H 05/15/21 17:01 Pulse Oximetry 97 05/15/21 17:01 Temperature 98.3 F 05/15/21 19:58 Pulse Rate 99 05/15/21 19:58 Respiratory Rate 21 H 05/15/21 19:58 Blood Pressure 113/59 L 05/15/21 19:58 Pulse Oximetry 98 05/15/21 19:58 MDM - Syncope MDM Narrative Medical decision making narrative: Patient presents to the emergency department after a syncopal episode today. Had outpatient labs drawn showing a hemoglobin of
[2021-05-15] MEDS: SODIUM CHLORIDE 0.9% IV 250 ML 30 ML IV CONT ×2 (18:11→19:43)
[2021-05-15] MEDS: TUBING, BLOOD SET 1 EACH XX ×2 (18:11→19:43)
[2021-05-15] MEDS: POTASSIUM CHLORIDE 20 MEQ PACKET (FOR LIQUID) 40 MEQ PO (18:14)
--- NOTE | 2021-05-15 18:38 | PC.NURSE ---
patient first unit infusing at this time. no complaints. will continue to monitor
[2021-05-15 19:13] LABS: NT Pro B Type Natriuretic Pept 535 pg/mL (5-100)
[2021-05-15 19:27] LABS: Immature Reticulocyte Fraction 11.2 % (3.0-15.9); Reticulocyte Hemoglobin Conten 42.2 pg (28.2-35.7); Reticulocyte Percent 1.24 % (0.7-4.3); Reticulocytes Absolute 0.02 B/L (32.2-175.7)
[2021-05-15 19:35] LABS: Iron 187 ug/dL (49-181)
[2021-05-15 19:44] LABS: Percent Iron Saturation 77 % (20-50)
[2021-05-15 19:49] LABS: Troponin I 0.012 ng/mL (0.000-0.034)
[2021-05-15 20:39] LABS: Folic Acid 1.3 ng/mL (2.76->20)
--- NOTE | 2021-05-15 22:09 | ADMGEN ---
This patient, Harpreet England, was admitted to Medical Room 243-01. Patient/family oriented to hospital policies and general routines including ID bracelet, bed and alarms, visiting hours, pain management, procedures, bathroom and other care routines, personal items, smoking policy, room service/diet, and visiting hours. Information on how to activate the Rapid Response Team has been discussed. Patient/Family are encouraged to report perceived risks to care and to ask questions if they do not understand what they are told or what they should do.
[2021-05-15 23:14] LABS: Ethanol 129 mg/dL (<10)
[2021-05-16] VITALS (26 sets, daily range): BP systolic 106–132; BP diastolic 56–77; PULSE 84–96; RESP 16–22; TEMP 36.1–36.9; O2SAT 95–100
--- NOTE | 2021-05-16 | ECHO_ITS ---
Patient Info Name: Harpreet England Age: 45 years : 1975 Gender: Male Ht: 74 in Wt: 249 lbs BSA: 2.46 m2 HR: 89 bpm BP: 122 / 72 mmHg Heart Rhythm: Sinus Rhythm Technical Quality: Fair Exam Date: 05/16/2021 8:53 AM Exam Location: [facility] Pulmonary Patient Status: Inpatient Admit Date: 05/16/2021 Staff Ordering Physician: Marilyn Couch DO Set Up Technician: Milagro Rene RDCS Attending Provider: Jose L Martinez MD Referring Physician: Iza MCCULLOUGH; Exam Type: CA echo doppler color flow Study Info Indications - Edema, dyspnea Complete two-dimensional, color flow and Doppler transthoracic echocardiogram is performed. Summary 1. Complete two-dimensional, color flow and Doppler transthoracic echocardiogram is performed. 2. Left ventricular chamber dimension is normal. 3. Left ventricular systolic function is normal, estimated at 60-65%. 4. The left ventricular diastolic function is normal. 5. E/e' 9 is minimally elevated. 6. There is trace mitral valve regurgitation. 7. No pulmonary hypertension, estimated pulmonary arterial systolic pressure is 28 mmHg. Left Ventricle E/e' 9 is minimally elevated. Left ventricular chamber dimension is normal. Left ventricular systolic function is normal, estimated at 60-65%. The left ventricular diastolic function is normal. Right Ventricle Right ventricular systolic function is normal and with normal TAPSE 2.4 cm. Right ventricular chamber dimension is normal. Left Atria Left atrial chamber dimension is normal. Right Atria Right atrial chamber dimension is normal. Aortic Valve The aortic valve is trileaflet. There is no aortic valve stenosis. There is no aortic valve regurgitation. Pulmonic Valve There is no pulmonic regurgitation. Mitral Valve There is no mitral valve stenosis. There is trace mitral valve regurgitation. Tricuspid Valve There is no tricuspid valve regurgitation. No pulmonary hypertension, estimated pulmonary arterial systolic pressure is 28 mmHg. Pericardium/Pleural There is no pericardial effusion. Inferior Vena Cava Inferior vena cava is not well visualized. Aorta The aortic root size at the sinus of Valsalva is normal. Left Ventricular Outflow Tract Name Value Normal LVOT 2D LVOT Diameter 2.1 cm LVOT Doppler LVOT Peak Gradient 5 mmHg LVOT Mean Gradient 2 mmHg LVOT VTI 19 cm LVOT VTI/AV VTI Ratio 0.7 LVOT Stroke Volume 65 ml LVOT CO 5.5 l/min LVOT CI 2.3 l/min/m2 Mitral Valve Name Value Normal MV Doppler MV Decel [place] 753 cm/s2 MV PHT 38 ms MV Area
[2021-05-16] MEDS: THIAMINE HCL 200 MG/2 ML VIAL 500 MG IV PUSH (00:58)
--- NOTE | 2021-05-16 01:08 | PM.IMHP ---
H&P: HPI History of Present Illness Date/Time: 05/15/21 23:00 Chief Complaint: Passing out Narrative: 45-year-old male with past medical history of chronic alcoholism, 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 The patient has a history of erythrocytosis a macrocytosis couple of years ago for which he received phlebotomy. The patient was then mildly anemic in 2019 but remained relatively stable with the lowest being 9.22 January 2021. He returned for follow-up with Dr. Caro April 23 and had blood work drawn at that time which turned hemoglobin of 5.3. Repeat labs confirmed low hemoglobin and patient received 2 units packed red blood cells. He reports that his symptoms of shortness of breath, fatigue and dyspnea on exertion improved somewhat after blood transfusion. However, he began to feel bad again and had lightheadedness and increased shortness of breath 2 days ago and was evaluated at [facility] and reportedly had a hemoglobin of 4. He received 2 more units of blood at that time. He stated that there was something wrong with his EKG at that time and the doctors seemed concerned about that but after he received blood since he was having improved shortness of breath and chest pain he was discharged from the ER after transfusion. The patient has a long history of alcoholism. He reports that 2 months ago he cut his alcohol use down from 1/5 of vodka a day into to 3 whiskey drinks a day down to 3-4 shots of vodka and 1 or 2 whiskey drinks a day. He does get irritable when he does not have alcohol and has had been having some anxiety and tremors. He reports that his symptoms have been more controllable since he has been gradually taping off has alcohol use. He states that his last alcoholic beverage was on Saturday but interestingly enough the patient's alcohol level is still 129 in the ER. The patient reports that for the last 2-3 months he has been having severe heartburn it is worse when he lays down especially when he lays on his left side. It is accompanied by severe hoarseness of his voice. Is also associated with frequent episodes of dry heaves and emesis. He reports he is able to drink any fluids that he wants until this past or Saturday. Since that time he has had difficulty heaving keeping liquids down. He has been having emesis that is clear without evidence of hematemesis or coffee-ground appearance. He reports that he has not been able to keep any food down. Saturday his employer year made him some a eggs which he rapidly vomited back up. He has also had some dark loose stools since last or Saturday but he attributed this to iron supplements. His Hemoccult stool was positive in the ER. He has been having some burning chest discomfort across the precordium for the last couple of weeks. He reports that for the last 6 weeks to 2 months that he has had progressive swelling in his lower extremities up through his thighs. He denies any significant scrotal edema. He denies any increased abdominal distension. Denies a known history of cirrhosis. He had a colonoscopy for evaluation of constipation August 2020 which demonstrated diverticulosis and colon polyps. He states for the last 3 weeks at his urine has appeared red to orange tinged and has been concentrated. Urination has been painful and burning. He has noticed shrinkage of his genitals over the last couple of years and has not had an erection in 4 years. He reports chronic neuropathic pain of his lower extremities. Today he has noticed new numbness of the last 3 fingers of his left hand. He snores in frequently wakes himself up. He states that he went to an eye doctor recently who told him he had a spot in the back of his right eye that could be concerning for cancer. He states he has scarring behind his left eye. He reports right rib cage pain where he landed after his syncopal event
[2021-05-16] MEDS: PANTOPRAZOLE SODIUM IV 40 MG VIAL IV PUSH ×3 (01:20→20:31)
[2021-05-16] MEDS: MELATONIN 5 MG TABLET PO ×2 (01:21→20:31)
[2021-05-16] MEDS: GABAPENTIN 300 MG CAPSULE PO ×3 (01:21→20:31)
[2021-05-16 01:59] LABS: Hematocrit 19.6 % (42.0-52.0); Hemoglobin 6.7 g/dL (14.0-18.0)
[2021-05-16] MEDS: FOLIC ACID 1 MG/0.2 ML INJ IV PUSH ×2 (02:05→08:01)
[2021-05-16 02:06] LABS: Anion Gap 8 mmol/L (8-16); Blood Urea Nitrogen 9 mg/dL (9-20); Calcium 7.9 mg/dL (8.4-10.2); Carbon Dioxide 26 mmol/L (22-30); Chloride 94 mmol/L (98-107); Estimated CRCL calculation 150 ml/min; Estimated Glomerular Filt Rate > 60; Glucose 124 mg/dL (65-110); Magnesium 1.3 mg/dL (1.6-2.3); Potassium 2.8 mmol/L (3.4-5.0); Sodium 128 mmol/L (137-145)
[2021-05-16] MEDS: MAGNESIUM SULF 4 GM/WATER100ML 4 GM/100 ML BAG IVPB (03:10)
[2021-05-16] MEDS: POTASSIUM CHLORIDE INJ 40 MEQ in SODIUM CHLORIDE 0.9% IV 500 ML 130 MEQ IVPB ×2 (03:51→15:53)
[2021-05-16] MEDS: SODIUM CHLORIDE 0.9% IV 250 ML 100 ML (03:54)
[2021-05-16] MEDS: SODIUM CHLORIDE 0.9% IV 250 ML 30 ML (08:02)
[2021-05-16] MEDS: MORPHINE SULFATE (*CRX) 2 MG/ML INJ IV PUSH ×3 (09:54→20:31)
--- NOTE | 2021-05-16 10:52 | WPDGICN ---
Assessment and Plan Assessment and plan (1) Anemia: Qualifiers: Anemia type: other cause Other causes of anemia: acute posthemorrhagic Qualified Code(s): D62 - Acute posthemorrhagic anemia Code(s): D64.9 - Anemia, unspecified Status: Acute Assessment and Plan: Patient with macrocytic anemia attributed to alcohol abuse. Now with more profound anemia with minimal signs of bleeding. Plan is for EGD today to exclude esophageal varices given his alcohol abuse to exclude underlying cirrhosis. Splenomegaly on CT scan suggest possible liver disease. Further recommendations will be given after endoscopy. Repeat colonoscopy may also be considered given intermittent rectal bleeding attributed hemorrhoids. Patient does have a prior history of colon polyps. Hematology follow-up is advised as patient has chronic anemia with macrocytic indices. 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 (2) Occult blood in stools: Code(s): R19.5 - Other fecal abnormalities Status: Acute Assessment and Plan: Occult blood identified in stool but no evidence for active bleeding. Continued close follow-up in perhaps follow-up colonoscopy given his prior history of colon polyps. (3) Alcohol abuse: Code(s): F10.10 - Alcohol abuse, uncomplicated Status: Acute (4) History of colon polyps: Code(s): Z86.010 - Personal history of colonic polyps Status: Acute Assessment and Plan: Patient has a history of colon polyps identified by endoscopy in 2020. Follow-up colonoscopies at advised at intervals in the future. Will follow closely. GI Consult Note Consult date/time: 05/16/21 10:52 HPI: Harpreet England is a 45 year old male I am asked to see because of anemia. Patient has a long history of alcoholism. Seen by my service in the fall of 2020 because of constipation. A colonoscopy revealed several benign colon polyps and diverticular disease. Patient has known to have macrocytic anemia followed by Dr. Caro on the hematology service. He recently has had rather significant anemia requiring transfusion. He states last week became very weak and tired at work. One to hospital in [place] on Saturday and required transfusion. He continued to feel poorly and presented to [facility] last evening where he was found to have Hemoccult-positive stools that were brown in appearance and admitted for further transfusion his hemoglobin approximately 5 and half. Patient denies any obvious blood in his stools. He denies any abdominal pain. He does notice occasional bright red blood per rectum that he attributes to hemorrhoids. He continues to drink alcohol rather heavily however. His family history is noncontributory. Family history is significant his father had esophageal cancer. 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 He smokes marijuana to help manage his chronic neuropathy. He drinks a 5th of more of hard liquor a day for many years. In the last 2 months he has cut down to several shots of liquor a day. Code status: Full code Primary care physician: None Sm
--- NOTE | 2021-05-16 11:32 | PM.IMPN ---
Progress Note: A&P Assessment and Plan (1) Anemia: Qualifiers: Anemia type: other cause Other causes of anemia: acute posthemorrhagic Qualified Code(s): D62 - Acute posthemorrhagic anemia Code(s): D64.9 - Anemia, unspecified Status: Acute (2) GI bleed: Qualifiers: GI bleed type/associated pathology: unspecified gastrointestinal hemorrhage type Qualified Code(s): K92.2 - Gastrointestinal hemorrhage, unspecified Code(s): K92.2 - Gastrointestinal hemorrhage, unspecified Status: Acute (3) Thrombocytopenia: Code(s): D69.6 - Thrombocytopenia, unspecified Status: Acute (4) Acute hypokalemia: Code(s): E87.6 - Hypokalemia Status: Acute (5) Syncope: Qualifiers: Syncope type: unspecified Qualified Code(s): R55 - Syncope and collapse Code(s): R55 - Syncope and collapse Status: Acute (6) Alcohol abuse: Code(s): F10.10 - Alcohol abuse, uncomplicated Status: Acute (7) Folic acid deficiency: Code(s): E53.8 - Deficiency of other specified B group vitamins Status: Acute (8) Dyspnea on exertion: Code(s): R06.00 - Dyspnea, unspecified Status: Acute (9) Bilateral lower extremity edema: Code(s): R60.0 - Localized edema Status: Acute (10) Hypomagnesemia: Code(s): E83.42 - Hypomagnesemia Status: Acute (11) Snoring: Code(s): R06.83 - Snoring Status: Acute (12) Erectile dysfunction: Qualifiers: Erectile dysfunction type: unspecified Qualified Code(s): N52.9 - Male erectile dysfunction, unspecified Code(s): N52.9 - Male erectile dysfunction, unspecified Status: Acute Additional Plan # Symptomatic anemia with multiple episodes of syncope. Hemoglobin down to 5 received 2 units of PRBC. Post transfusion hemoglobin was still 6.7 getting 2 more units of packed red blood cell. Continue to monitor H&H. Hemoccult was positive in the ER. Suggestive of GI bleed. However reticulocyte count is low suggesting underlying bone marrow suppression. Oncology has been following as an outpatient in's consulted here during this hospital stay. He is low in his folic acid and is getting replaced. # multiple syncopal episodes # acute on chronic anemia # Hemoccult-positive stool GI consulted on PPI b.i.d.. He is going for EGD today to see any versus. If positive may need octreotide drip. # chronic alcohol use counseled on alcohol abstinence # folic acid deficiency # thrombocytopenia chronic likely due to chronic alcohol use also has splenomegaly # lower extremity edema echocardiogram with EF 60-65% otherwise unremarkable # renal mass will get ultrasound. May need Urology follow-up for further evaluation. # hypokalemia/hypomagnesemia recheck and monitor # chronic snoring apnea link ordered # erectile dysfunction/low testosterone # DVT prophylaxis contraindicated pharmacologically only on SCD # code status full code Subjective Date/time seen: 05/16/21 11:32 Interval history: HPI:45-year-old male with past medical history of chronic alcoholism, 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 The patient has a history of erythrocytosis a macrocytosis couple of years ago for which he received phlebotomy. The patient was then mildly anemic in 2019 but remained relatively stable with the lowest being 9.22 January 2021. He returned for follow-up with Dr. Caro April 23 and had blood work drawn at that time which turned hemoglobin of 5.3. Repeat labs confirmed low hemoglobin and patient received 2 units packed red blood cells. He reports that his symptoms of shortness of breath, fatigue and dyspnea on exertion improved somewhat after blood transfusion. However, he began to feel bad again and had lightheadedness and increased shortness of breath 2 days ago and was evaluated
[2021-05-16 12:15] LABS: Eosinophils Percent Auto 1.6 % (0-4.4); Hematocrit 23.6 % (42.0-52.0); Hemoglobin 8.4 g/dL (14.0-18.0); Immature Granulocyte Absolute 0.03 K/mm3 (0.00-0.031); Immature Granulocyte Percent A 1.2 % (0-0.5); Lymphocytes Percent Auto 16.3 % (18.3-44.2); Mean Corpuscular HGB Conc 35.6 g/dl (32-36); Mean Corpuscular Hemoglobin 33.9 pg (26-34); Mean Corpuscular Volume 95.2 fl (80-100); Mean Platelet Volume 11.2 fl (7.4-10.4); Monocytes Absolute Auto 0.1 K/mm3 (0.1-0.6); Monocytes Percent Auto 3.7 % (2.6-8.5); Neutrophils Absolute Auto 1.9 K/mm3 (1.3-6.7); Neutrophils Percent Auto 77.2 % (45.5-73.1); Platelet Count Result 40 k/mm3 (150-375); Red Blood Count 2.48 M/mm3 (4.6-6.20); Red Cell Distribution Width 21.3 % (11.5-14.5); White Blood Count 2.5 K/mm3 (4.5-10.0)
[2021-05-16 12:17] LABS: Lactate Dehydrogenase 759 U/L (313-618)
--- NOTE | 2021-05-16 12:19 | PC.NURSE ---
On 05/16/21,WOLF Student performed an assessment and provided care to this patient. I have reviewed her documentation in [facility] and agree with it.
[2021-05-16 12:30] LABS: Alanine Aminotransferase 26 U/L (4-50); Albumin Level 2.9 g/dL (3.5-5.1); Alkaline Phosphatase 75 U/L (38-126); Anion Gap 7 mmol/L (8-16); Aspartate Amino Transferase 49 U/L (17-59); Bilirubin,Total 2.3 mg/dL (0.2-1.3); Blood Urea Nitrogen 10 mg/dL (9-20); Calcium 7.7 mg/dL (8.4-10.2); Carbon Dioxide 27 mmol/L (22-30); Chloride 96 mmol/L (98-107); Estimated CRCL calculation 173 ml/min; Estimated Glomerular Filt Rate > 60; Glucose 114 mg/dL (65-110); Potassium 3.3 mmol/L (3.4-5.0); Sodium 130 mmol/L (137-145)
[2021-05-16] MEDS: LACTATED RINGERS 1,000 ML 150 ML IV CONT (13:20)
--- NOTE | 2021-05-16 13:33 | WPDANESEPPF ---
Anes - Initial Pre Proc Eval Procedure: Operation Date: 05/16/21 14:15 Proposed Procedures p Esophagogastroduodenoscopy - Gilson Salas MD Date/Time: 05/16/21 13:33 Surgeon: Jose L Martinez MD Pre Op Diagnosis: Anemia, GI Bleed, Syncope Patient Data Age: 45 Gender: M Height: 1.88 m Weight: 113 kg Last Vital Signs Temp 97.0 F L 05/16/21 13:24 Pulse 91 05/16/21 13:24 Resp 18 05/16/21 13:24 BP 132/75 05/16/21 13:24 Pulse Ox 99 05/16/21 13:24 Allergies Allergy/AdvReac Type Severity Reaction Status Date / Time No Known Allergies Allergy Verified 05/16/21 13:23 Home Medications Medication Instructions Recorded Confirmed Type docusate sodium 100 mg PO BID PRN 09/08/20 05/15/21 History gabapentin 300 mg PO BID 09/08/20 05/15/21 History sennosides-docusate sodium 1 tab-cap PO BID PRN 09/08/20 05/15/21 History [Senna-S] ProAir HFA 1 puff INHALATION DAILY PRN 05/15/21 05/15/21 History Tums 2 tab-cap PO Q4-6H PRN 05/15/21 05/15/21 History albuterol sulfate 2 puff INHALATION Q4-6H PRN 05/16/21 05/16/21 History melatonin 5 mg PO HS 05/16/21 05/16/21 History Laboratory Tests 05/15/21 05/15/21 05/15/21 16:15 17:09 17:09 WBC 5.3 K/mm3 K/mm3 (4.5-10.0) RBC 1.68 M/mm3 L M/mm3 (4.6-6.20) Hgb 6.0 g/dL L* g/dL (14.0-18.0) Hct 17.9 % L* % (42.0-52.0) MCV 106.5 fl H fl (80-100) MCH 35.7 pg H pg (26-34) MCHC 33.5 g/dl g/dl (32-36) RDW 24.1 % H % (11.5-14.5) Plt Count 70 k/mm3 L k/mm3 (150-375) MPV 11.6 fl H fl (7.4-10.4) Immature Gran % (Auto) 0.6 % H % (0-0.5) Neut % (Auto) 74.7 % H % (45.5-73.1) Lymph % (Auto) 21.0 % % (18.3-44.2) Dane % (Auto) 2.2 % L % (2.6-8.5) Eos % (Auto) 1.5 % % (0-4.4) Baso % (Auto) 0.0 % L % (0.2-1.2) Lymph # (Auto) 1.12 K/mm3 K/mm3 (0.9-3.2) Dane # (Auto) 0.1 K/mm3 K/mm3 (0.1-0.6) Eos # (Auto) 0.1 K/mm3 K/mm3 (0-0.3) Baso # (Auto) 0.0 K/mm3 K/mm3 (0.0-0.1) Abs Immat Gran (auto) 0.03 K/mm3 K/mm3 (0.00-0.031) Absolute Neuts (auto) 4.0 K/mm3 K/mm3 (1.3-6.7) Absolute Nucleated RBC 0.0 K/mm3 K/mm3 (0.0-0.012) Nucleated RBC % 0.0 % % (0.0-0.2) % Immature Plt Fraction 11.4 % H % (0.9-11.2) Absolute Retic Percent Retic Immature Retic Fraction Retic Hgb Content Haptoglobin PT INR APTT Sodium 127 mmol/L L mmol/L (137-145) Potassium 2.5 mmol/L L* mmol/L (3.4-5.0) Chloride 92 mmol/L L mmol/L (98-107) Carbon Dioxide 22 mmol/L mmol/L (22-30) Anion Gap 13 mmol/L mmol/L (8-16) BUN 9 mg/dL mg/dL (9-20) Creatinine 0.70 mg/dL mg/dL (0.7-1.3) Estim Creat Clear Calc Not Reportable Estimated GFR > 60 (59 - ) Glucose 155 mg/dL H mg/dL (65-110) Calcium 8.5 mg/dL mg/dL (8.4-10.2) Magnesium Iron TIBC % Saturation Ferritin Total Bilirubin 1.6 mg/dL H mg/dL (0.2-1.3) AST 61 U/L H U/L (17-59) ALT 27 U/L U/L (4-50) Alkaline Phosphatase 80 U/L U/L (38-126) Lactate Dehydrogenase Troponin I NT-Pro-B Natriuret Pep Total Protein 6.0 g/dL L g/dL (6.3-8.2) Albumin 3.4 g/dL L g/dL (3.5-5.1) Vitamin B12 Folate Total Testosterone Free Testosterone Ethyl Alcohol Blood Type O Positive Antibody Screen Negative Crossmatch See Detail 05/15/21 05/15/21 05/15/21 17:09 17:09 17:10 WBC RBC Hgb
[2021-05-16 13:36] LABS: Anisocytosis 2+ (NORMAL); Ovalocytes 1+ (NORMAL); Platelet Estimate Decreased (Adequate); Poikilocytosis 1+ (NORMAL)
[2021-05-16] MEDS: SUCRALFATE 1 GM TABLET PO ×2 (16:22→20:31)
[2021-05-16] MEDS: LOPERAMIDE HCL 2 MG CAPSULE PO (20:30)
[2021-05-16] MEDS: ALBUTEROL SULFATE (*SP) AEROSOL 1 PUFF 2 PUFF INHALATION (20:40)
[2021-05-16 21:30] LABS: Hematocrit 24.7 % (42.0-52.0); Hemoglobin 8.6 g/dL (14.0-18.0)
[2021-05-17] VITALS (11 sets, daily range): BP systolic 111–156; BP diastolic 53–86; PULSE 80–96; RESP 16–20; TEMP 36.1–36.5; O2SAT 94–99
[2021-05-17] MEDS: MORPHINE SULFATE (*CRX) 2 MG/ML INJ IV PUSH ×4 (02:38→21:00)
[2021-05-17] MEDS: SUCRALFATE 1 GM TABLET PO ×4 (05:37→20:08)
[2021-05-17 06:52] LABS: Eosinophils Absolute Auto 0.1 K/mm3 (0-0.3); Eosinophils Percent Auto 3.8 % (0-4.4); Hematocrit 24.2 % (42.0-52.0); Hemoglobin 8.3 g/dL (14.0-18.0); Immature Granulocyte Absolute 0.03 K/mm3 (0.00-0.031); Immature Granulocyte Percent A 1.1 % (0-0.5); Lymphocytes Absolute Auto 0.51 K/mm3 (0.9-3.2); Lymphocytes Percent Auto 19.4 % (18.3-44.2); Mean Corpuscular HGB Conc 34.3 g/dl (32-36); Mean Corpuscular Hemoglobin 33.2 pg (26-34); Mean Corpuscular Volume 96.8 fl (80-100); Mean Platelet Volume 11.7 fl (7.4-10.4); Monocytes Absolute Auto 0.1 K/mm3 (0.1-0.6); Monocytes Percent Auto 4.6 % (2.6-8.5); Neutrophils Absolute Auto 1.9 K/mm3 (1.3-6.7); Neutrophils Percent Auto 71.1 % (45.5-73.1); Platelet Count Result 36 k/mm3 (150-375); Red Cell Distribution Width 21.3 % (11.5-14.5); White Blood Count 2.6 K/mm3 (4.5-10.0)
[2021-05-17 06:59] LABS: Alanine Aminotransferase 26 U/L (4-50); Albumin Level 2.9 g/dL (3.5-5.1); Alkaline Phosphatase 79 U/L (38-126); Anion Gap 2 mmol/L (8-16); Aspartate Amino Transferase 52 U/L (17-59); Bilirubin,Total 2.2 mg/dL (0.2-1.3); Blood Urea Nitrogen 10 mg/dL (9-20); Calcium 7.3 mg/dL (8.4-10.2); Carbon Dioxide 29 mmol/L (22-30); Chloride 96 mmol/L (98-107); Estimated CRCL calculation 173 ml/min; Estimated Glomerular Filt Rate > 60; Glucose 107 mg/dL (65-110); Magnesium 1.9 mg/dL (1.6-2.3); Potassium 3.6 mmol/L (3.4-5.0); Sodium 127 mmol/L (137-145)
--- NOTE | 2021-05-17 07:27 | WPDGIPROGNO ---
Progress Note: A&P Assessment and Plan (1) Pancytopenia: Code(s): D61.818 - Other pancytopenia Status: Acute Assessment and Plan: Patient with significant pancytopenia. Likely contributes to profound anemia. 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 Patient will need hematology follow-up because of degree of anemia requiring frequent transfusions. They should see patient soon as feasible. (2) Erosive esophagitis: Code(s): K22.10 - Ulcer of esophagus without bleeding Status: Acute Assessment and Plan: Erosive esophagitis identified at time of endoscopy. Likely from vomiting. Will continue PPI therapy. Potentially this could cause bleeding but none has been described in none evident at time of endoscopy. Avoidance of alcohol long-term PPI use is advised. (3) Gastritis and duodenitis: Code(s): K29.90 - Gastroduodenitis, unspecified, without bleeding Status: Acute Assessment and Plan: Gastritis and duodenitis also noted at time of endoscopy. Likely from alcohol abuse. PPI therapy should help as well as avoiding alcohol. (4) History of colon polyps: Code(s): Z86.010 - Personal history of colonic polyps Status: Acute Assessment and Plan: Patient found to have benign colon polyps by recent colonoscopy would recommend follow-up colonoscopy in 3 or 4 years. (5) Alcohol abuse: Code(s): F10.10 - Alcohol abuse, uncomplicated Status: Acute Assessment and Plan: Patient has ongoing alcohol abuse and alcohol rehab avoidance of alcohol strongly encouraged. Subjective Date/time seen: 05/17/21 07:27 patient is comfortable rest presently. Tolerating diet with no pain. No evidence for any bleeding. She he has had no obvious bleeding described. Denies abdominal pain. Review of Systems Review of Systems: All systems reviewed & are unremarkable except as noted in HPI and below Exam Narrative: Physical exam reveals patient be alert comfortable at rest. Tolerated liquids. Lungs are clear. Heart without murmur. Abdomen bowel sounds present soft nontender with no organomegaly. Objective Data Vital Signs Vital Signs: Vital Signs - 24 hr 05/16/21 08:02 05/16/21 08:04 05/16/21 09:02 Temperature 98.2 F 98.2 F Pulse Rate 94 88 92 Respiratory Rate 20 20 Blood Pressure 120/58 L 122/58 L Pulse Oximetry 100 100 05/16/21 10:02 05/16/21 10:39 05/16/21 12:00 Temperature 97.8 F 97.8 F Pulse Rate 85 85 87 Respiratory Rate 20 20 Blood Pressure 115/67 115/67 Pulse Oximetry 100 100 05/16/21 13:24 05/16/21 14:26 05/16/21 14:36 Temperature 97.0 F L Pulse Rate 91 85 86 Respiratory Rate 18 20 20 Blood Pressure 132/75 106/68 119/77 Pulse Oximetry 99 98 98 05/16/21 14:46 05/16/21 16:00 05/16/21 20:00 Temperature Pulse Rate 84 85 88 Respiratory Rate 22 H 20 Blood Pressure 122/76 126/73 Pulse Oximetry 95 95 05/16/21 20:26 05/16/21 20:44 05/17/21 00:00 Temperature 96.9 F L Pulse Rate 88 92 Respiratory Rate 20 Blood Pressure 126/73 126/73 Pulse Oximetry 95 95 05/17/21 04:00 05/17/21 05:24 Temperature 96.9 F L Pulse Rate 94 95 Respiratory Rate 20 Blood Pressure 126/73 128/81 Pulse Oximetry 98 Intake/Output Intake/Output: Intake & Output 05/14/21 05/15/21 05/16/21 05/17/21 23:59 23:59 23:59 23:59 Intake Total 1300 2158 340 Output Total 504 Balance 1300 1654 340 Meds/Results Medications: Active Medications Generic Name Dose Route Start Last Admin Trade Name Freq PRN Reason Stop Dose Admin Albuterol 2 puff 05/16/21 12:24 05/16/21 20:40 Albuterol Sulfate (*Sp) Aerosol 1 Puff INHALATION 2 puff Q4-6H PRN Administration Shortness Of Breath Folic Acid 1 mg 05/16/21 09:00 05/16/21 08:01 Folic Acid 1 Mg/0.2 Ml Inj IV PUSH 1 mg QAM DEXTER Administration Gabapentin 300 mg 05/16/21 01:20 05/16/21 20:31 Gabapentin 300 Mg Capsule P
[2021-05-17 08:03] LABS: Anisocytosis 2+ (NORMAL); Atypical Lymphocytes Present; Hypochromasia 2+ (NORMAL); Platelet Estimate Decreased (Adequate)
[2021-05-17] MEDS: FOLIC ACID 1 MG/0.2 ML INJ IV PUSH (08:22)
[2021-05-17] MEDS: PANTOPRAZOLE SODIUM IV 40 MG VIAL IV PUSH ×2 (08:23→20:08)
[2021-05-17] MEDS: THIAMINE HCL 200 MG/2 ML VIAL 100 MG IV PUSH (08:24)
[2021-05-17] MEDS: GABAPENTIN 300 MG CAPSULE PO ×2 (08:25→20:08)
[2021-05-17] MEDS: ALBUTEROL SULFATE (*SP) AEROSOL 1 PUFF 2 PUFF INHALATION ×2 (09:17→17:30)
[2021-05-17 12:10] LABS: Reticulocyte Hemoglobin Conten 40.5 pg (28.2-35.7); Reticulocyte Percent 0.76 % (0.7-4.3); Reticulocytes Absolute 0.02 B/L (32.2-175.7)
[2021-05-17 12:18] LABS: Lactate Dehydrogenase 764 U/L (313-618)
--- NOTE | 2021-05-17 13:24 | PDONCCN ---
HPI - Date of Consult Date/Time: 05/17/21 13:24 Requesting Physician: Jose L Martinez MD Primary Care Provider: DAIRY FARMER PHYSICIAN - Consult Narrative Narrative: Harpreet England is a 45 year old male with a history of signficant long standing alcohol use who has been followed by Dr Caro for anemia felt to be secondary to alcoholism. He has been admitted for with pancytopenia notable decreasing platelet counts and profound anemia. He underwent endoscopy which showed esophagitis, gastritis and duodenitis c/w alcohol intake but no acute bleeding. He has thus far received 3 uPRC with HB increasing to 8 but with a low Retic ct. He has taken oral Fe preparations. 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 History of tonsillectomy At age 26 due to episodes of apnea Family History: Family History (Last Updated 05/16/21 @ 01:49 by Marilyn Couch DO) Father Esophageal cancer Alcoholism Mother Alcoholism - Social History Social History: Social History (Last Updated 05/16/21 @ 01:51 by Marilyn Couch DO) Alcohol Use: Alcohol intake: current Drinks per week: 20 Substance Use: Substance use: current Substance use type: marijuana Others: Spiritual care concerns: No Smoking Status: Smoking status: Former smoker Smoking Pack-years: Smoking packs per day: 1 Smoking cigarettes per day: 20.0 Years smoked: 3 Smoking pack-years: 3.00 Meds Home Medications Medication Instructions Recorded Confirmed Type docusate sodium 100 mg PO BID PRN 09/08/20 05/15/21 History gabapentin 300 mg PO BID 09/08/20 05/15/21 History sennosides-docusate sodium 1 tab-cap PO BID PRN 09/08/20 05/15/21 History [Senna-S] ProAir HFA 1 puff INHALATION DAILY PRN 05/15/21 05/15/21 History Tums 2 tab-cap PO Q4-6H PRN 05/15/21 05/15/21 History albuterol sulfate 2 puff INHALATION Q4-6H PRN 05/16/21 05/16/21 History ferrous sulfate [FeroSul] 65 mg PO BID 05/16/21 05/16/21 History melatonin 5 mg PO HS 05/16/21 05/16/21 History Allergies Allergy/AdvReac Type Severity Reaction Status Date / Time No Known Allergies Allergy Verified 05/16/21 13:23 Results - Labs CBC & Chem 7: 05/17/21 05:35 05/17/21 05:35 Labs: Short CBC 05/16/21 05/16/21 05/17/21 Range/Units 11:46 21:18 05:35 WBC 2.5 L 2.6 L (4.5-10.0) K/mm3 Hgb 8.4 L 8.6 L 8.3 L (14.0-18.0) g/dL Hct 23.6 L 24.7 L 24.2 L (42.0-52.0) % Plt Count 40 L 36 L (150-375) k/mm3 BMP 05/17/21 05:35 Sodium 127 L Potassium 3.6 Chloride 96 L Carbon Dioxide 29 BUN 10 Creatinine 0.60 L Glucose 107 Calcium 7.3 L Liver Function 05/17/21 Range/Units 05:35 Total Bilirubin 2.2 H (0.2-1.3) mg/dL AST 52 (17-59) U/L ALT 26 (4-50) U/L Alkaline Phosphatase 79 (38-126) U/L Albumin 2.9 L (3.5-5.1) g/dL Assessment and Plan (1) Anemia Qualifiers: Anemia type: other cause Other causes of anemia: acute posthemorrhagic Qualified Code(s): D62 - Acute posthemorrhagic anemia Code(s): D64.9 - Anemia, unspecified Status: Chronic Assessment and Plan: Pancytopenia either secondary to alcholism or bone marrow dysfunction I will monitor blood counts if persistent will need Bone Marrow biopsy
--- NOTE | 2021-05-17 15:47 | PM.IMPN ---
Progress Note: A&P Assessment and Plan (1) Anemia: Qualifiers: Anemia type: other cause Other causes of anemia: acute posthemorrhagic Qualified Code(s): D62 - Acute posthemorrhagic anemia Code(s): D64.9 - Anemia, unspecified Status: Chronic (2) GI bleed: Qualifiers: GI bleed type/associated pathology: unspecified gastrointestinal hemorrhage type Qualified Code(s): K92.2 - Gastrointestinal hemorrhage, unspecified Code(s): K92.2 - Gastrointestinal hemorrhage, unspecified Status: Acute (3) Thrombocytopenia: Code(s): D69.6 - Thrombocytopenia, unspecified Status: Acute (4) Acute hypokalemia: Code(s): E87.6 - Hypokalemia Status: Acute (5) Syncope: Qualifiers: Syncope type: unspecified Qualified Code(s): R55 - Syncope and collapse Code(s): R55 - Syncope and collapse Status: Acute (6) Alcohol abuse: Code(s): F10.10 - Alcohol abuse, uncomplicated Status: Acute (7) Folic acid deficiency: Code(s): E53.8 - Deficiency of other specified B group vitamins Status: Acute (8) Dyspnea on exertion: Code(s): R06.00 - Dyspnea, unspecified Status: Acute (9) Bilateral lower extremity edema: Code(s): R60.0 - Localized edema Status: Acute (10) Hypomagnesemia: Code(s): E83.42 - Hypomagnesemia Status: Acute (11) Snoring: Code(s): R06.83 - Snoring Status: Acute (12) Erectile dysfunction: Qualifiers: Erectile dysfunction type: unspecified Qualified Code(s): N52.9 - Male erectile dysfunction, unspecified Code(s): N52.9 - Male erectile dysfunction, unspecified Status: Acute Additional Plan # Symptomatic anemia with multiple episodes of syncope. Hemoglobin down to 5 received 2 units of PRBC. Post transfusion hemoglobin was still 6.7 getting 2 more units of packed red blood cell. Continue to monitor H&H. Hemoccult was positive in the ER. Suggestive of GI bleed. However reticulocyte count is low suggesting underlying bone marrow suppression. Oncology has been following as an outpatient in's consulted here during this hospital stay. He is low in his folic acid and is getting replaced. # multiple syncopal episodes # acute on chronic anemia # Hemoccult-positive stool GI consulted on PPI b.i.d.. He is going for EGD today to see any versus. If positive may need octreotide drip. # chronic alcohol use counseled on alcohol abstinence # folic acid deficiency # thrombocytopenia chronic likely due to chronic alcohol use also has splenomegaly # lower extremity edema echocardiogram with EF 60-65% otherwise unremarkable # renal mass will get ultrasound. May need Urology follow-up for further evaluation. # hypokalemia/hypomagnesemia recheck and monitor # chronic snoring apnea link ordered # erectile dysfunction/low testosterone # DVT prophylaxis contraindicated pharmacologically only on SCD # code status full code 05/17/2021 Interval history: patient with significant alcohol abuse history and his last drink was about a week ago, he has output risk of DT, upon arrival patient had a significant pancytopenia with low hemoglobin, platelets and white count, patient was seen by GI and had a EGD did not show any acute source of bleeding however patient does have has gastritis and duodenitis, patient seen by Hematology retic count is low suspect most likely bone marrow suppression due to alcohol abuse recommended to monitor for few days if there is no improved patient will need bone marrow biopsy, will continue to monitor CBC, patient remains clinically stable has no complaint abdominal pain nausea or vomiting fever or chills, Subjective Date/time seen: 05/17/21 15:47 Interval history: HPI:45-year-old male with past medical history of chronic alcoholism, prior erythrocytosis and macrocytosis status post phlebotomy in April 2018 who presented to the ER after having multi
[2021-05-17] MEDS: MELATONIN 5 MG TABLET PO (20:08)
[2021-05-18] VITALS (9 sets, daily range): BP systolic 117–126; BP diastolic 55–71; PULSE 90–100; RESP 14–21; TEMP 36.3–37.2; O2SAT 95–100
[2021-05-18] MEDS: MORPHINE SULFATE (*CRX) 2 MG/ML INJ IV PUSH ×5 (01:48→23:49)
[2021-05-18] MEDS: ALBUTEROL SULFATE (*SP) AEROSOL 1 PUFF 2 PUFF INHALATION ×3 (05:53→17:00)
[2021-05-18] MEDS: SUCRALFATE 1 GM TABLET PO ×4 (05:57→20:07)
[2021-05-18 06:01] LABS: Basophils Percent Auto 0.3 % (0.2-1.2); Eosinophils Absolute Auto 0.1 K/mm3 (0-0.3); Eosinophils Percent Auto 4.1 % (0-4.4); Hemoglobin 8.1 g/dL (14.0-18.0); Immature Granulocyte Absolute 0.03 K/mm3 (0.00-0.031); Immature Platelet Fraction Pct 11.8 % (0.9-11.2); Lymphocytes Absolute Auto 0.54 K/mm3 (0.9-3.2); Lymphocytes Percent Auto 18.3 % (18.3-44.2); Mean Corpuscular HGB Conc 33.8 g/dl (32-36); Mean Corpuscular Hemoglobin 33.9 pg (26-34); Mean Corpuscular Volume 100.4 fl (80-100); Mean Platelet Volume 12.5 fl (7.4-10.4); Monocytes Absolute Auto 0.3 K/mm3 (0.1-0.6); Monocytes Percent Auto 9.5 % (2.6-8.5); Neutrophils Percent Auto 66.8 % (45.5-73.1); Platelet Count Result 37 k/mm3 (150-375); Red Blood Count 2.39 M/mm3 (4.6-6.20); Red Cell Distribution Width 20.9 % (11.5-14.5)
[2021-05-18 06:07] LABS: Alanine Aminotransferase 24 U/L (4-50); Albumin Level 2.8 g/dL (3.5-5.1); Alkaline Phosphatase 83 U/L (38-126); Anion Gap 4 mmol/L (8-16); Aspartate Amino Transferase 48 U/L (17-59); Bilirubin,Total 2.1 mg/dL (0.2-1.3); Blood Urea Nitrogen 6 mg/dL (9-20); Calcium 7.3 mg/dL (8.4-10.2); Carbon Dioxide 29 mmol/L (22-30); Chloride 97 mmol/L (98-107); Estimated CRCL calculation 150 ml/min; Estimated Glomerular Filt Rate > 60; Glucose 111 mg/dL (65-110); Magnesium 1.8 mg/dL (1.6-2.3); Potassium 3.6 mmol/L (3.4-5.0); Sodium 130 mmol/L (137-145)
[2021-05-18] MEDS: PANTOPRAZOLE SODIUM IV 40 MG VIAL IV PUSH ×2 (09:12→20:07)
[2021-05-18] MEDS: GABAPENTIN 300 MG CAPSULE PO ×2 (09:13→20:07)
[2021-05-18] MEDS: THIAMINE HCL 200 MG/2 ML VIAL 100 MG IV PUSH (09:13)
--- NOTE | 2021-05-18 10:11 | WPDGIPROGNO ---
Progress Note: A&P Assessment and Plan (1) Pancytopenia: Code(s): D61.818 - Other pancytopenia Status: Acute Assessment and Plan: Pancytopenia noted with rather significant thrombocytopenia. Appreciate Hematology input. Workup in follow-up anticipated by hematology service. I suspect this likely is related to alcohol bone marrow suppression. (2) Gastritis and duodenitis: Code(s): K29.90 - Gastroduodenitis, unspecified, without bleeding Status: Acute Assessment and Plan: Gastritis and duodenitis as well as esophagitis identified by endoscopy. Long-term PPI use advised. He should stop alcohol abuse which likely contributes to this. (3) Erosive esophagitis: Code(s): K22.10 - Ulcer of esophagus without bleeding Status: Acute Assessment and Plan: Erosive esophagitis likely from vomiting. Cannot exclude underlying GE reflux disease. Would recommend long-term PPI use. Likely would benefit from a alcohol avoidance. At rehab. (4) History of colon polyps: Code(s): Z86.010 - Personal history of colonic polyps Status: Acute Assessment and Plan: Patient found to have benign colon polyps 1 year ago. Follow-up colonoscopy at 5 year interval suggested long-term. (5) Alcohol abuse: Code(s): F10.10 - Alcohol abuse, uncomplicated Status: Acute Subjective Date/time seen: 05/18/21 10:11 Patient denies ongoing nausea vomiting. Denies abdominal pain. No evidence for active bleeding. Tolerating diet without difficulty. Denies heartburn. Review of Systems Review of Systems: All systems reviewed & are unremarkable except as noted in HPI and below Exam Narrative: Physical exam reveals patient to be alert. Vital signs stable. HEENT exam unremarkable. Lungs are clear. Heart without murmur. Abdomen soft nontender without organomegaly. Objective Data Vital Signs Vital Signs: Vital Signs - 24 hr 05/17/21 12:00 05/17/21 14:15 05/17/21 14:33 Temperature 97.7 F Pulse Rate 93 94 Respiratory Rate 18 Blood Pressure 156/86 H Pulse Oximetry 99 95 05/17/21 16:03 05/17/21 20:00 05/17/21 22:00 Temperature 97.7 F Pulse Rate 84 89 80 Respiratory Rate 18 16 Blood Pressure 156/86 H 111/53 L Pulse Oximetry 95 94 05/18/21 00:00 05/18/21 04:00 05/18/21 06:00 Temperature 98.0 F Pulse Rate 92 93 100 Respiratory Rate 18 Blood Pressure 117/55 L Pulse Oximetry 95 Intake/Output Intake/Output: Intake & Output 05/15/21 05/16/21 05/17/21 05/18/21 23:59 23:59 23:59 23:59 Intake Total 1300 2158 2060 Output Total 504 Balance 1300 1654 2060 Meds/Results Medications: Active Medications Generic Name Dose Route Start Last Admin Trade Name Freq PRN Reason Stop Dose Admin Albuterol 2 puff 05/16/21 12:24 05/18/21 05:53 Albuterol Sulfate (*Sp) Aerosol 1 Puff INHALATION 2 puff Q4-6H PRN Administration Shortness Of Breath Folic Acid 1 mg 05/16/21 09:00 05/17/21 08:22 Folic Acid 1 Mg/0.2 Ml Inj IV PUSH 1 mg QAM DEXTER Administration Gabapentin 300 mg 05/16/21 01:20 05/18/21 09:13 Gabapentin 300 Mg Capsule PO 300 mg Q12HR DEXTER Administration Lorazepam 1 mg 05/16/21 01:25 Lorazepam Inj (*Crx) 2 Mg/Ml Vial IV PUSH Q4H PRN Anxiety or CIWA greater than 8 Melatonin 5 mg 05/16/21 21:00 05/17/21 20:08 Melatonin 5 Mg Tablet PO 06/15/21 20:59 5 mg HS DEXTER Administration Morphine Sulfate 2 mg 05/16/21 09:21 05/18/21 09:42 Morphine Sulfate (*Crx) 2 Mg/Ml Inj IV PUSH 2 mg Q4H PRN Administration Pain Rated 7-10 Pantoprazole Sodium 40 mg 05/16/21 09:00 05/18/21 09:12 Pantoprazole Sodium Iv 40 Mg Vial IV PUSH 40 mg Q12HR DEXTER Administration Perflutren Lipid Microsphere 0 ml 05/16/21 00:47 Perflutren Lipid Microspheres 1.5 Ml Vial Diluted To 10 Ml Total Volume IV PUSH ONCE PRN adequate visualization Protocol Sucr
--- NOTE | 2021-05-18 11:49 | PM.IMPN ---
Progress Note: A&P Assessment and Plan (1) Anemia: Qualifiers: Anemia type: other cause Other causes of anemia: acute posthemorrhagic Qualified Code(s): D62 - Acute posthemorrhagic anemia Code(s): D64.9 - Anemia, unspecified Status: Chronic (2) GI bleed: Qualifiers: GI bleed type/associated pathology: unspecified gastrointestinal hemorrhage type Qualified Code(s): K92.2 - Gastrointestinal hemorrhage, unspecified Code(s): K92.2 - Gastrointestinal hemorrhage, unspecified Status: Acute (3) Thrombocytopenia: Code(s): D69.6 - Thrombocytopenia, unspecified Status: Acute (4) Acute hypokalemia: Code(s): E87.6 - Hypokalemia Status: Acute (5) Syncope: Qualifiers: Syncope type: unspecified Qualified Code(s): R55 - Syncope and collapse Code(s): R55 - Syncope and collapse Status: Acute (6) Alcohol abuse: Code(s): F10.10 - Alcohol abuse, uncomplicated Status: Acute (7) Folic acid deficiency: Code(s): E53.8 - Deficiency of other specified B group vitamins Status: Acute (8) Dyspnea on exertion: Code(s): R06.00 - Dyspnea, unspecified Status: Acute (9) Bilateral lower extremity edema: Code(s): R60.0 - Localized edema Status: Acute (10) Hypomagnesemia: Code(s): E83.42 - Hypomagnesemia Status: Acute (11) Snoring: Code(s): R06.83 - Snoring Status: Acute (12) Erectile dysfunction: Qualifiers: Erectile dysfunction type: unspecified Qualified Code(s): N52.9 - Male erectile dysfunction, unspecified Code(s): N52.9 - Male erectile dysfunction, unspecified Status: Acute Additional Plan # Symptomatic anemia with multiple episodes of syncope. Hemoglobin down to 5 received 2 units of PRBC. Post transfusion hemoglobin was still 6.7 getting 2 more units of packed red blood cell. Continue to monitor H&H. Hemoccult was positive in the ER. Suggestive of GI bleed. However reticulocyte count is low suggesting underlying bone marrow suppression. Oncology has been following as an outpatient in's consulted here during this hospital stay. He is low in his folic acid and is getting replaced. # multiple syncopal episodes # acute on chronic anemia # Hemoccult-positive stool GI consulted on PPI b.i.d.. He is going for EGD today to see any versus. If positive may need octreotide drip. # chronic alcohol use counseled on alcohol abstinence # folic acid deficiency # thrombocytopenia chronic likely due to chronic alcohol use also has splenomegaly # lower extremity edema echocardiogram with EF 60-65% otherwise unremarkable # renal mass will get ultrasound. May need Urology follow-up for further evaluation. # hypokalemia/hypomagnesemia recheck and monitor # chronic snoring apnea link ordered # erectile dysfunction/low testosterone # DVT prophylaxis contraindicated pharmacologically only on SCD # code status full code 05/17/2021 Interval history: patient with significant alcohol abuse history and his last drink was about 8 week ago, he has out of risk of DT, upon arrival patient had a significant pancytopenia with low hemoglobin, platelets and white count, patient was seen by GI and had a EGD did not show any acute source of bleeding however patient does have has gastritis and duodenitis, patient seen by Hematology retic count is low suspect most likely bone marrow suppression due to alcohol abuse recommended to monitor for few days if there is no improved patient will need bone marrow biopsy, will continue to monitor CBC, patient remains clinically stable has no complaint abdominal pain nausea or vomiting fever or chills. 05/18/2021 Interval history: patient remains clinically stable his hemoglobin and white counts are stable, patient platelets remain low however there is no bleeding or bruising be seen by Hematology further recommendation to follow, patient anemia
[2021-05-18] MEDS: FOLIC ACID 1 MG/0.2 ML INJ IV PUSH (11:57)
--- NOTE | 2021-05-18 12:16 | PC.NURSE ---
[employer] reviewed and agrees with student nurse charting and assessment.
--- NOTE | 2021-05-18 14:24 | PC.NURSE ---
On 05/18/21, the student, [Tory Montgomery], provided care and completed [facility] documentation on this patient. I have reviewed the student's documentation and agree with the findings.
[2021-05-18] MEDS: MELATONIN 5 MG TABLET PO (20:07)
[2021-05-18] MEDS: LORazepam INJ (*CRX) 2 MG/ML VIAL 1 MG IV PUSH (23:50)
[2021-05-19] VITALS: PULSE 96
[2021-05-19 04:00] VITALS: PULSE 89
[2021-05-19 05:21] LABS: Basophils Percent Auto 0.5 % (0.2-1.2); Eosinophils Absolute Auto 0.2 K/mm3 (0-0.3); Hematocrit 22.8 % (42.0-52.0); Hemoglobin 7.7 g/dL (14.0-18.0); Immature Granulocyte Absolute 0.18 K/mm3 (0.00-0.031); Immature Granulocyte Percent A 4.5 % (0-0.5); Immature Platelet Fraction Pct 10.8 % (0.9-11.2); Lymphocytes Absolute Auto 0.72 K/mm3 (0.9-3.2); Lymphocytes Percent Auto 18.1 % (18.3-44.2); Mean Corpuscular HGB Conc 33.8 g/dl (32-36); Mean Corpuscular Hemoglobin 32.9 pg (26-34); Mean Corpuscular Volume 97.4 fl (80-100); Mean Platelet Volume 11.7 fl (7.4-10.4); Monocytes Absolute Auto 0.5 K/mm3 (0.1-0.6); Monocytes Percent Auto 12.3 % (2.6-8.5); Neutrophils Absolute Auto 2.4 K/mm3 (1.3-6.7); Neutrophils Percent Auto 59.6 % (45.5-73.1); Nucleated Red Blood Cells Perc 0.5 % (0.0-0.2); Platelet Count Result 43 k/mm3 (150-375); Red Blood Count 2.34 M/mm3 (4.6-6.20); Red Cell Distribution Width 20.9 % (11.5-14.5)
[2021-05-19 05:31] LABS: Alanine Aminotransferase 23 U/L (4-50); Albumin Level 2.7 g/dL (3.5-5.1); Alkaline Phosphatase 89 U/L (38-126); Anion Gap 3 mmol/L (8-16); Aspartate Amino Transferase 49 U/L (17-59); Bilirubin,Total 1.7 mg/dL (0.2-1.3); Blood Urea Nitrogen 5 mg/dL (9-20); Calcium 7.2 mg/dL (8.4-10.2); Carbon Dioxide 28 mmol/L (22-30); Chloride 98 mmol/L (98-107); Estimated CRCL calculation 150 ml/min; Estimated Glomerular Filt Rate > 60; Glucose 111 mg/dL (65-110); Magnesium 1.8 mg/dL (1.6-2.3); Potassium 3.2 mmol/L (3.4-5.0); Sodium 129 mmol/L (137-145)
[2021-05-19] MEDS: MORPHINE SULFATE (*CRX) 2 MG/ML INJ IV PUSH ×2 (05:51→10:02)
[2021-05-19] MEDS: SUCRALFATE 1 GM TABLET PO ×2 (05:51→12:15)
[2021-05-19 06:00] VITALS: BP 109/62; PULSE 91; RESP 16; TEMP 36.1; O2SAT 94
[2021-05-19 07:40] LABS: Haptoglobin 76 mg/dL (43-212)
[2021-05-19] MEDS: GABAPENTIN 300 MG CAPSULE PO (09:17)
[2021-05-19] MEDS: THIAMINE HCL 200 MG/2 ML VIAL 100 MG IV PUSH (09:19)
[2021-05-19] MEDS: FOLIC ACID 1 MG/0.2 ML INJ IV PUSH (09:20)
[2021-05-19] MEDS: PANTOPRAZOLE SODIUM IV 40 MG VIAL IV PUSH (09:20)
[2021-05-19] MEDS: ALBUTEROL SULFATE (*SP) AEROSOL 1 PUFF 2 PUFF INHALATION (09:35)
[2021-05-19 09:50] VITALS: PULSE 87; O2SAT 95
--- NOTE | 2021-05-19 11:56 | WPDGIPROGNO ---
Progress Note: A&P Assessment and Plan (1) Gastritis and duodenitis: Code(s): K29.90 - Gastroduodenitis, unspecified, without bleeding Status: Acute Assessment and Plan: Gastritis and duodenitis noted endoscopy likely secondary to alcohol abuse. Would abstain from alcohol continue pantoprazole 40mg p.o. daily after discharge. Keld[place] diet advised. (2) Erosive esophagitis: Code(s): K22.10 - Ulcer of esophagus without bleeding Status: Acute Assessment and Plan: Patient also noted to have erosive esophagitis at time of endoscopy. Likely related ongoing vomiting. Continued pantoprazole 40mg p.o. daily long-term is advised. Continued alcohol avoidance strongly encouraged. Follow-up with primary care service encouraged. He can see GI service electively if symptoms recur. (3) Pancytopenia: Code(s): D61.818 - Other pancytopenia Status: Acute Assessment and Plan: Pancytopenia noted most likely on the basis of alcoholic bone marrow suppression. Patient should continue follow-up with hematology for this. Bone marrow biopsy may be required. Alcohol avoidance strongly encouraged. No significant bleeding was noted during this hospital stay. But limiting anticoagulation would also be helpful. (4) History of colon polyps: Code(s): Z86.010 - Personal history of colonic polyps Status: Acute Assessment and Plan: Patient found to have benign colon polyps 1 year ago. Follow-up colonoscopy at 5 year interval strongly encouraged. (5) Alcohol abuse: Code(s): F10.10 - Alcohol abuse, uncomplicated Status: Acute Assessment and Plan: Alcohol avoidance strongly encouraged. Subjective Date/time seen: 05/19/21 11:56 Patient alert comfortable this morning. No evidence for bleeding. Denies abdominal pain. Tolerating diet. Review of Systems Review of Systems: All systems reviewed & are unremarkable except as noted in HPI and below Exam Narrative: Physical exam patient is alert comfortable at rest. HEENT exam unremarkable. He is anicteric. Lungs are clear. Heart without murmur. Abdomen bowel sounds present soft nontender with no organomegaly. Objective Data Vital Signs Vital Signs: Vital Signs - 24 hr 05/18/21 12:00 05/18/21 14:00 05/18/21 16:00 Temperature 97.4 F L Pulse Rate 94 90 93 Respiratory Rate 14 Blood Pressure 126/71 Pulse Oximetry 98 05/18/21 20:00 05/18/21 22:00 05/19/21 00:00 Temperature 98.9 F Pulse Rate 96 96 96 Respiratory Rate 14 21 H Blood Pressure 126/71 125/66 Pulse Oximetry 98 100 05/19/21 04:00 05/19/21 06:00 05/19/21 09:50 Temperature 97.0 F L Pulse Rate 89 91 87 Respiratory Rate 16 Blood Pressure 109/62 Pulse Oximetry 94 95 Intake/Output Intake/Output: Intake & Output 05/16/21 05/17/21 05/18/21 05/19/21 23:59 23:59 23:59 23:59 Intake Total 2158 0 560 Output Total 504 Balance 1654 2059 560 Meds/Results Medications: Active Medications Generic Name Dose Route Start Last Admin Trade Name Freq PRN Reason Stop Dose Admin Albuterol 2 puff 05/16/21 12:24 05/19/21 09:35 Albuterol Sulfate (*Sp) Aerosol 1 Puff INHALATION 2 puff Q4-6H PRN Administration Shortness Of Breath Folic Acid 1 mg 05/16/21 09:00 05/19/21 09:20 Folic Acid 1 Mg/0.2 Ml Inj IV PUSH 1 mg QAM DEXTER Administration Gabapentin 300 mg 05/16/21 01:20 05/19/21 09:17 Gabapentin 300 Mg Capsule PO 300 mg Q12HR DEXTER Administration Lorazepam 1 mg 05/16/21 01:25 05/18/21 23:50 Lorazepam Inj (*Crx) 2 Mg/Ml Vial IV PUSH 1 mg Q4H PRN Administration Anxiety or CIWA greater than 8 Melatonin 5 mg 05/16/21 21:00 05/18/21 20:07 Melatonin 5 Mg Tablet PO 06/15/21 20:59 5 mg HS DEXTER Administration Morphine Sulfate 2 mg 05/16/21 09:21 05/19/21 10:02 Morphine Sulfate (*Crx) 2 Mg/Ml Inj IV PUSH 2 mg Q4H PRN Administration Pain Rated 7-10
[2021-05-19 12:00] VITALS: PULSE 92
[2021-05-19] MEDS: POTASSIUM CHLORIDE 20 MEQ TABLET 40 MEQ PO (12:15)
--- NOTE | 2021-05-19 12:50 | PDRADONCFUV ---
Follow Up Note - Date/Time 05/19/21 12:50 H&P - Exam - Vital Signs Vital Signs - 24 hr 05/18/21 14:00 05/18/21 16:00 05/18/21 20:00 Temperature 36.3 C L Pulse Rate 90 93 96 Respiratory Rate 14 14 Blood Pressure 126/71 126/71 Pulse Oximetry 98 98 05/18/21 22:00 05/19/21 00:00 05/19/21 04:00 Temperature 37.2 C Pulse Rate 96 96 89 Respiratory Rate 21 H Blood Pressure 125/66 Pulse Oximetry 100 05/19/21 06:00 05/19/21 09:50 05/19/21 12:00 Temperature 36.1 C L Pulse Rate 91 87 92 Respiratory Rate 16 Blood Pressure 109/62 Pulse Oximetry 94 95 - Lab Results Laboratory Last Values WBC 4.0 K/mm3 (4.5-10.0) L 05/19/21 05:01 RBC 2.34 M/mm3 (4.6-6.20) L 05/19/21 05:01 Hgb 7.7 g/dL (14.0-18.0) L 05/19/21 05:01 Hct 22.8 % (42.0-52.0) L 05/19/21 05:01 MCV 97.4 fl (80-100) 05/19/21 05:01 MCH 32.9 pg (26-34) 05/19/21 05:01 MCHC 33.8 g/dl (32-36) 05/19/21 05:01 RDW 20.9 % (11.5-14.5) H 05/19/21 05:01 Plt Count 43 k/mm3 (150-375) L 05/19/21 05:01 MPV 11.7 fl (7.4-10.4) H 05/19/21 05:01 Immature Gran % (Auto) 4.5 % (0-0.5) H 05/19/21 05:01 Neut % (Auto) 59.6 % (45.5-73.1) 05/19/21 05:01 Lymph % (Auto) 18.1 % (18.3-44.2) L 05/19/21 05:01 [place] % (Auto) 12.3 % (2.6-8.5) H 05/19/21 05:01 Eos % (Auto) 5.0 % (0-4.4) H 05/19/21 05:01 Baso % (Auto) 0.5 % (0.2-1.2) 05/19/21 05:01 Lymph # (Auto) 0.72 K/mm3 (0.9-3.2) L 05/19/21 05:01 [place] # (Auto) 0.5 K/mm3 (0.1-0.6) 05/19/21 05:01 Eos # (Auto) 0.2 K/mm3 (0-0.3) 05/19/21 05:01 Baso # (Auto) 0.0 K/mm3 (0.0-0.1) 05/19/21 05:01 Abs Immat Gran (auto) 0.18 K/mm3 (0.00-0.031) H 05/19/21 05:01 Absolute Neuts (auto) 2.4 K/mm3 (1.3-6.7) 05/19/21 05:01 Absolute Nucleated RBC 0.0 K/mm3 (0.0-0.012) 05/19/21 05:01 Nucleated RBC % 0.5 % (0.0-0.2) H 05/19/21 05:01 Atypical Lymphocytes Present 05/17/21 05:35 Platelet Estimate Decreased (Adequate) 05/17/21 05:35 % Immature Plt Fraction 10.8 % (0.9-11.2) 05/19/21 05:01 Hypochromasia 2+ (NORMAL) 05/17/21 05:35 Poikilocytosis 1+ (NORMAL) 05/16/21 11:46 Anisocytosis 2+ (NORMAL) 05/17/21 05:35 Ovalocytes 1+ (NORMAL) 05/16/21 11:46 Absolute Retic 0.02 B/L (32.2-175.7) L 05/17/21 11:58 Percent Retic 0.76 % (0.7-4.3) 05/17/21 11:58 Immature Retic Fraction 7.0 % (3.0-15.9) 05/17/21 11:58 Retic Hgb Content 40.5 pg (28.2-35.7) H 05/17/21 11:58 Haptoglobin 76 mg/dL (43-212) 05/16/21 11:46 PT 15.9 Seconds (11.1-14.7) H 05/15/21 17:09 INR 1.3 05/15/21 17:09 APTT 35.7 SECONDS (22.3-36.8) 05/15/21 17:09 Sodium 129 mmol/L (137-145) L 05/19/21 05:01 Potassium 3.2 mmol/L (3.4-5.0) L 05/19/21 05:01 Chloride 98 mmol/L (98-107) 05/19/21 05:01 Carbon Dioxide 28 mmol/L (22-30) 05/19/21 05:01 Anion Gap 3 mmol/L (8-16) L 05/19/21 05:01 BUN 5 mg/dL (9-20) L 05/19/21 05:01 Creatinine 0.70 mg/dL (0.7-1.3) 05/19/21 05:01 Estim Creat Clear Calc 150 ml/min 05/19/21 05:01 Estimated GFR > 60 (59-) 05/19/21 05:01 Glucose 111 mg/dL (65-110) H 05/19/21 05:01 Calcium 7.2 mg/dL (8.4-10.2) L 05/19/21 05:01 Magnesium 1.8 mg/dL (1.6-2.3) 05/19/21 05:01 Iron 187 ug/dL (49-181) H 05/15/21 17:10 TIBC 242 ug/dL (265-497) L 05/15/21 17:10 % Saturation 77 % (20-50) H 05/15/21 17:10 Ferritin 312.00 ng/mL (17.9-464) 05/15/21 17:10 Total Bilirubin 1.7 mg/dL (0.2-1.3) H 05/19/21 05:01 AST 49 U/L (17-59) 05/19/21 05:01 ALT 23 U/L (4-50) 05/19/21 05:01 Alkaline Phosphatase 89 U/L (38-126) 05/19/21 05:01 Lactate Dehydrogenase 764 U/L (313-618) H 05/17/21 11:58 Troponin I 0.012 ng/mL (0.000-0.034) 05/15/21 1
--- NOTE | 2021-05-19 12:59 | WPDONCPN ---
Progress Note: A/P (1) Anemia Onset Date: ~05/19/21 Qualifiers: Anemia type: other cause Other causes of anemia: acute posthemorrhagic Qualified Code(s): D62 - Acute posthemorrhagic anemia Code(s): D64.9 - Anemia, unspecified Status: Chronic Assessment and plan: will follow as outpatient encouraged to abstain from alcohol blood counts have been stable - Time Spent With Patient Total time spent is greater than 50% in coordination of care (as documented) at patient's floor/unit and/or counseling patient: 15 - 25 minutes Review of Systems - Review of Systems All systems reviewed & are unremarkable except as noted in HPI and bel Exam Vital signs: Temp Pulse Resp BP Pulse Ox 36.1 C L 92 16 109/62 95 05/19/21 06:00 05/19/21 12:00 05/19/21 06:00 05/19/21 06:00 05/19/21 09:50 - Constitutional no acute distress PN: Objective Data - Labs CBC & Chem 7: 05/19/21 05:01 05/19/21 05:01 Labs: Laboratory Results - last 24 hr 05/16/21 05/19/21 05/19/21 11:46 05:01 05:01 WBC 4.0 L RBC 2.34 L Hgb 7.7 L Hct 22.8 L MCV 97.4 MCH 32.9 MCHC 33.8 RDW 20.9 H Plt Count 43 L MPV 11.7 H Immature Gran % (Auto) 4.5 H Neut % (Auto) 59.6 Lymph % (Auto) 18.1 L [place] % (Auto) 12.3 H Eos % (Auto) 5.0 H Baso % (Auto) 0.5 Lymph # (Auto) 0.72 L [place] # (Auto) 0.5 Eos # (Auto) 0.2 Baso # (Auto) 0.0 Abs Immat Gran (auto) 0.18 H Absolute Neuts (auto) 2.4 Absolute Nucleated RBC 0.0 Nucleated RBC % 0.5 H % Immature Plt Fraction 10.8 Haptoglobin 76 Sodium 129 L Potassium 3.2 L Chloride 98 Carbon Dioxide 28 Anion Gap 3 L BUN 5 L Creatinine 0.70 Estim Creat Clear Calc 150 Estimated GFR > 60 Glucose 111 H Calcium 7.2 L Magnesium 1.8 Total Bilirubin 1.7 H AST 49 ALT 23 Alkaline Phosphatase 89 Total Protein 5.0 L Albumin 2.7 L
--- NOTE | 2021-05-19 13:20 | PCOTNOTE ---
Attempted to see patient this pm, however patient declined secondary to planning to be discharged. I've had two doctors tell me I can go home, so I just assume wait until I get home. Pt had no concerns as pertains to OT prior to discharge.
--- NOTE | 2021-05-19 13:38 | PM.DS ---
DS: Admitting Diagnosis Discharge Date 05/19/2021 Admitting Diagnosis Passing out DS: Discharge Diagnosis Discharge Diagnosis (1) Anemia: Onset Date: ~05/19/21 Qualifiers: Anemia type: other cause Other causes of anemia: acute posthemorrhagic Qualified Code(s): D62 - Acute posthemorrhagic anemia Code(s): D64.9 - Anemia, unspecified Status: Chronic (2) GI bleed: Qualifiers: GI bleed type/associated pathology: unspecified gastrointestinal hemorrhage type Qualified Code(s): K92.2 - Gastrointestinal hemorrhage, unspecified Code(s): K92.2 - Gastrointestinal hemorrhage, unspecified Status: Acute (3) Thrombocytopenia: Code(s): D69.6 - Thrombocytopenia, unspecified Status: Acute (4) Acute hypokalemia: Code(s): E87.6 - Hypokalemia Status: Acute (5) Syncope: Qualifiers: Syncope type: unspecified Qualified Code(s): R55 - Syncope and collapse Code(s): R55 - Syncope and collapse Status: Acute (6) Alcohol abuse: Code(s): F10.10 - Alcohol abuse, uncomplicated Status: Acute (7) Folic acid deficiency: Code(s): E53.8 - Deficiency of other specified B group vitamins Status: Acute (8) Dyspnea on exertion: Code(s): R06.00 - Dyspnea, unspecified Status: Acute (9) Bilateral lower extremity edema: Code(s): R60.0 - Localized edema Status: Acute (10) Hypomagnesemia: Code(s): E83.42 - Hypomagnesemia Status: Acute (11) Snoring: Code(s): R06.83 - Snoring Status: Acute (12) Erectile dysfunction: Qualifiers: Erectile dysfunction type: unspecified Qualified Code(s): N52.9 - Male erectile dysfunction, unspecified Code(s): N52.9 - Male erectile dysfunction, unspecified Status: Acute DS: Summary Hospital Course Reason for hospitalization: Chief Complaint: Passing out Narrative: 45-year-old male with past medical history of chronic alcoholism, 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 The patient has a history of erythrocytosis a macrocytosis couple of years ago for which he received phlebotomy. The patient was then mildly anemic in 2019 but remained relatively stable with the lowest being 9.22 January 2021. He returned for follow-up with Dr. Caro April 23 and had blood work drawn at that time which turned hemoglobin of 5.3. Repeat labs confirmed low hemoglobin and patient received 2 units packed red blood cells. He reports that his symptoms of shortness of breath, fatigue and dyspnea on exertion improved somewhat after blood transfusion. However, he began to feel bad again and had lightheadedness and increased shortness of breath 2 days ago and was evaluated at [facility] and reportedly had a hemoglobin of 4. He received 2 more units of blood at that time. He stated that there was something wrong with his EKG at that time and the doctors seemed concerned about that but after he received blood since he was having improved shortness of breath and chest pain he was discharged from the ER after transfusion. The patient has a long history of alcoholism. He reports that 2 months ago he cut his alcohol use down from 1/5 of vodka a day into to 3 whiskey drinks a day down to 3-4 shots of vodka and 1 or 2 whiskey drinks a day. He does get irritable when he does not have alcohol and has had been having some anxiety and tremors. He reports that his symptoms have been more controllable since he has been gradually taping off has alcohol use. He states that his last alcoholic beverage was on Saturday but interestingly enough the patient's alcohol level is still 129 in the ER. The patient reports that for the last 2-3 months he has been having severe heartburn it is worse when he lays down especially when he lays on his left side. It is accompanied by severe
[2021-05-19 14:00] VITALS: BP 135/74; PULSE 98; RESP 16; TEMP 36.8; O2SAT 98
[2021-05-20 16:05] LABS: Testosterone Total 69 ng/dL (250-1100)
== END 2021-05-19 15:20 | disposition home or self-care (01) | DRG 663 ==
LOC: ANHED 20:44 → ANH2MED 21:21
PROVIDERS: Internal Medicine; Internal Medicine Gastroenterology; Physician Assistant; Admitting Provider Internal Medicine; Emergency Provider Emergency Medicine; Visit Provider Family Medicine
PROC: 0DJ08ZZ Inspection of Upper Intestinal Tract, Via Natural or Artificial Opening Endoscopic (ICD-10-PCS; CPT 43235; principal; 2021-05-16 14:15)
DX: D75.89 Other specified diseases of blood and blood-forming organs (principal); D53.8 Other specified nutritional anemias; D61.818 Other pancytopenia; K29.90 Gastroduodenitis, unspecified, without bleeding; K22.10 Ulcer of esophagus without bleeding; F10.20 Alcohol dependence, uncomplicated; R55 Syncope and collapse; G62.9 Polyneuropathy, unspecified; E87.1 Hypo-osmolality and hyponatremia; E87.6 Hypokalemia; R07.81 Pleurodynia; W19.XXXA Unspecified fall, initial encounter; Z86.010 Personal history of colon polyps; Z87.891 Personal history of nicotine dependence; E66.9 Obesity, unspecified; Z68.32 Body mass index [BMI] 32.0-32.9, adult; E83.42 Hypomagnesemia; N52.9 Male erectile dysfunction, unspecified; E53.8 Deficiency of other specified B group vitamins; R19.5 Other fecal abnormalities; N28.9 Disorder of kidney and ureter, unspecified
CPT/HCPCS: 36415; 36430; 70450; 71046; 71100; 71260; 73030; 74177; 76775; 80048; 80053; 80307; 82607; 82728; 82746; 83010; 83540; 83550; 83615; 83735; 83880; 84402; 84403; 84484; 85014; 85018; 85025; 85046; 85055; 85610; 85730; 86850; 86880; 86900; 86901; 86920; 87081; 93005; 93306; 94640; 94762; 96361; 96374; 96375; 96376; 97161; 97165; 99285; A9270; C9113; G0378; J0131; J2060; J2270; J2704; J3411; J3475; J3480; J7040; J7050; J7120; P9016; Q9967

== ENCOUNTER 2021-05-16 08:00 | Outpatient (RCR) | payer OTHER, SELFPAY ==
[2021-04-26] VITALS (10 sets, daily range): BP systolic 114–138; BP diastolic 64–71; PULSE 92–106; RESP 16; TEMP 36.6–37.1; O2SAT 16–100
[2021-04-26] MEDS: SODIUM CHLORIDE 0.9% IV 250 ML 30 ML IV CONT (08:55)
[2021-04-26] MEDS: ACETAMINOPHEN 325 MG TABLET 650 MG PO (08:55)
[2021-04-26] MEDS: diphenhydrAMINE HCl CAP 25 MG CAPSULE PO (08:55)
[2021-04-26 09:29] LABS: Hematocrit 14.4 % (42.0-52.0)
[2021-04-26] MEDS: FUROSEMIDE INJ 40 MG/4 ML VIAL 20 MG IV PUSH (13:15)
== END 2021-07-23 23:59 | disposition home or self-care (01) ==
LOC: ANHCPCTRAN 08:00
PROVIDERS: Visit Provider Internal Medicine Hematology & Oncology
DX: D64.9 Anemia, unspecified (principal); E83.19 Other disorders of iron metabolism
CPT/HCPCS: 36415; 36430; 85014; 85018; 86850; 86900; 86901; 86920; 96374; A9270; J1940; J7050; P9016

== ENCOUNTER 2021-05-22 12:54 | Outpatient (CLI) | payer OTHER, SELFPAY ==
[2021-05-22 13:10] LABS: Basophils Percent Auto 0.3 % (0.2-1.2); Eosinophils Absolute Auto 0.5 K/mm3 (0-0.3); Eosinophils Percent Auto 7.8 % (0-4.4); Hematocrit 25.7 % (42.0-52.0); Hemoglobin 7.8 g/dL (14.0-18.0); Immature Granulocyte Absolute 0.15 K/mm3 (0.00-0.031); Immature Granulocyte Percent A 2.6 % (0-0.5); Lymphocytes Percent Auto 15.5 % (18.3-44.2); Mean Corpuscular HGB Conc 30.4 g/dl (32-36); Mean Corpuscular Hemoglobin 32.2 pg (26-34); Mean Corpuscular Volume 106.2 fl (80-100); Monocytes Absolute Auto 0.7 K/mm3 (0.1-0.6); Monocytes Percent Auto 11.9 % (2.6-8.5); Neutrophils Absolute Auto 3.6 K/mm3 (1.3-6.7); Neutrophils Percent Auto 61.9 % (45.5-73.1); Platelet Count Result 199 k/mm3 (150-375); Red Blood Count 2.42 M/mm3 (4.6-6.20); Red Cell Distribution Width 22.2 % (11.5-14.5); White Blood Count 5.8 K/mm3 (4.5-10.0)
== END 2021-05-22 12:55 | disposition home or self-care (01) ==
LOC: ANHLAB 12:55
PROVIDERS: Visit Provider Internal Medicine Hematology & Oncology
DX: D64.9 Anemia, unspecified (principal)
CPT/HCPCS: 36415; 85025

== ENCOUNTER 2021-05-24 11:58 | Outpatient (CLI) | payer OTHER, SELFPAY ==
--- NOTE | ~2021-05-24 | XR_ITS ---
EXAMINATION: XR shoulder LT min 2V DATE: 05/24/2021 12:22 INDICATION: Left shoulder pain post fall TECHNIQUE: AP internally and externally rotated, AP oblique externally rotated and transscapular Y vi ews of the left shoulder were obtained. COMPARISON: None FINDINGS: Normal alignment. Non to minimally displaced fractures of the lateral left fourth-seventh ribs. No fr acture at the left shoulder. Glenohumeral joint is normal. Mild acromioclavicular osteoarthritis. Mod erate to large subacromial spur along the anterior and lateral margins of the acromion. Soft tissues are unremarkable. Opacities at the left lower lung zone which could represent atelectasis or pneumoni a. IMPRESSION: 1. Non to minimally displaced lateral left fourth-seventh rib fractures. 2. Mild acromioclavicular osteoarthritis and moderate to large subacromial spur. Reviewed, dictated and finalized at location B. IMPRESSION: 1. Non to minimally displaced lateral left fourth-seventh rib fractures. 2. Mild acromioclavicular osteoarthritis and moderate to large subacromial spur .
--- NOTE | ~2021-05-24 | CT_ITS ---
EXAMINATION: CT brain wo con EXAM DATE: 05/24/2021 12:36 INDICATION: R55 - Syncope and collapse . Fall with posterior head injury and loss of consciousness. TECHNIQUE: Spiral CT of the head was performed without contrast. Axial, coronal and sagittal images were reviewed. The dose-length product (DLP) for this examination was 681.00 mGy-cm. The exposure w as tailored according to patient size, and iterative reconstruction (ASIR) was used as additional dos e reduction technique. Comparison is made to prior examination from 05/15/2021. FINDINGS: There is no acute intraparenchymal hemorrhage. No evidence of intraparenchymal brain mass lesion. No evidence of acute infarction. There is no mass effect or midline shift. The ventricles are normal in size. There are no extra-axial collections. There are no acute calvarial fractures. T he orbits are unremarkable. Soft tissue is unremarkable. The visualized sinuses and mastoid air maria de jesus ls are well aerated. IMPRESSION: 1. No acute intracranial findings. Reviewed, dictated and finalized at location A.
--- NOTE | ~2021-05-24 | XR_ITS ---
EXAMINATION: XR knee LT 3V DATE: 05/24/2021 12:22 INDICATION: Left knee pain. TECHNIQUE: 3 views of left knee were obtained. COMPARISON: None. FINDINGS: Bone alignment is normal. No fracture. There is mild tricompartmental osteoarthritis charac terized by tiny osteophytes. Joint space narrowing. No knee joint effusion. IMPRESSION: 1. Mild left knee osteoarthritis. Reviewed, dictated and finalized at location A.
--- NOTE | ~2021-05-24 | XR_ITS ---
EXAMINATION: XR elbow LT 2V DATE: 05/24/2021 12:22 INDICATION: Left elbow pain. Fall. TECHNIQUE: 2 views of left elbow were obtained. COMPARISON: None. FINDINGS: Bone alignment is normal. No fracture. Joint spaces are normal. There is an enthesophyte at olecranon. There is no elbow joint effusion. There is posterior soft tissue swelling. IMPRESSION: 1. No fracture. Reviewed, dictated and finalized at location A. IMPRESSION: 1. No fracture.
--- NOTE | ~2021-05-24 | XR_ITS ---
EXAM: XR hip LT 2V w AP pelvis HISTORY: M25.559 - Pain in unspecified hip, FALL COMPARISON: CT chest abdomen and pelvis 05/16/2021. FINDINGS: Normal mineralization. Degenerative changes in the lumbar spine. Severe degenerative grady e in the hips. No fracture or dislocation. Dystrophic calcification in the soft tissue anterior to th e left hip. IMPRESSION: No acute osseous finding in the pelvis or left hip. Reviewed, dictated and finalized at location K.
--- NOTE | ~2021-05-24 | XR_ITS ---
EXAM: [id number]_CR HISTORY: Fall (occurring after the prior studies). COMPARISON: CT chest abdomen and pelvis with contrast 05/16/2021, XR ribs right with PA and lateral c hest x-ray 05/15/2021. FINDINGS: Subsegmental left basilar opacities. Blunting of the left costophrenic angle. Nondisplaced and minimally displaced fractures of left lateral ribs 4 through 8. Minimally displaced fractures of right anterolateral ribs 4 and 7. IMPRESSION: Likely small left hemothorax given adjacent osseous trauma, with adjacent atelectasis. Multiple left and right-sided rib fractures described above. Result communicated to Dr. [place] at 4:29 PM on 05/24/[address] Conway. Reviewed, dictated and finalized at location K. IMPRESSION: Likely small left hemothorax given adjacent osseous trauma, with adjacent atele ctasis. Multiple left and right-sided rib fractures described above. Result communicated to Dr. [place] at 4:29 PM on 05/24/[address] Jeffrey Conway.
[2021-05-24 13:11] LABS: Alanine Aminotransferase 21 U/L (4-50); Albumin Level 3.1 g/dL (3.5-5.1); Alkaline Phosphatase 129 U/L (38-126); Anion Gap 7 mmol/L (8-16); Aspartate Amino Transferase 49 U/L (17-59); Bilirubin,Total 1.3 mg/dL (0.2-1.3); Blood Urea Nitrogen 8 mg/dL (9-20); Carbon Dioxide 25 mmol/L (22-30); Chloride 99 mmol/L (98-107); Estimated Glomerular Filt Rate > 60; Glucose 113 mg/dL (65-110); Potassium 3.1 mmol/L (3.4-5.0); Sodium 131 mmol/L (137-145)
[2021-05-24 13:15] LABS: D Dimer 2.37 ug/mL (<0.48)
== END 2021-05-24 11:59 | disposition home or self-care (01) ==
PROVIDERS: PCP Family Medicine; Visit Provider Family Medicine
DX: S29.9XXA Unspecified injury of thorax, initial encounter (principal); S22.32XA Fracture of one rib, left side, initial encounter for closed fracture; S22.31XA Fracture of one rib, right side, initial encounter for closed fracture; E87.6 Hypokalemia; M79.89 Other specified soft tissue disorders; R55 Syncope and collapse; M17.12 Unilateral primary osteoarthritis, left knee; M19.012 Primary osteoarthritis, left shoulder; M16.0 Bilateral primary osteoarthritis of hip; M47.816 Spondylosis without myelopathy or radiculopathy, lumbar region
CPT/HCPCS: 36415; 70450; 71111; 73030; 73070; 73502; 73562; 80053; 84443; 85380

== ENCOUNTER 2021-06-16 07:31 | Outpatient (CLI) | payer OTHER, SELFPAY ==
[2021-06-16 07:51] LABS: Basophils Absolute Auto 0.1 K/mm3 (0.0-0.1); Basophils Percent Auto 1.5 % (0.2-1.2); Eosinophils Absolute Auto 0.2 K/mm3 (0-0.3); Eosinophils Percent Auto 3.3 % (0-4.4); Hematocrit 34.3 % (42.0-52.0); Immature Granulocyte Absolute 0.03 K/mm3 (0.00-0.031); Immature Granulocyte Percent A 0.4 % (0-0.5); Lymphocytes Absolute Auto 1.62 K/mm3 (0.9-3.2); Lymphocytes Percent Auto 23.6 % (18.3-44.2); Mean Corpuscular HGB Conc 32.1 g/dl (32-36); Mean Corpuscular Hemoglobin 32.2 pg (26-34); Mean Corpuscular Volume 100.3 fl (80-100); Mean Platelet Volume 10.1 fl (7.4-10.4); Monocytes Absolute Auto 0.8 K/mm3 (0.1-0.6); Monocytes Percent Auto 12.1 % (2.6-8.5); Neutrophils Absolute Auto 4.1 K/mm3 (1.3-6.7); Neutrophils Percent Auto 59.1 % (45.5-73.1); Platelet Count Result 154 k/mm3 (150-375); Red Blood Count 3.42 M/mm3 (4.6-6.20); Red Cell Distribution Width 18.6 % (11.5-14.5); White Blood Count 6.9 K/mm3 (4.5-10.0)
[2021-06-16 08:04] LABS: Alanine Aminotransferase 30 U/L (4-50); Albumin Level 2.8 g/dL (3.5-5.1); Alkaline Phosphatase 274 U/L (38-126); Anion Gap 7 mmol/L (8-16); Aspartate Amino Transferase 101 U/L (17-59); Calcium 7.7 mg/dL (8.4-10.2); Carbon Dioxide 28 mmol/L (22-30); Chloride 100 mmol/L (98-107); Estimated Glomerular Filt Rate > 60; Glucose 113 mg/dL (65-110); Potassium 3.9 mmol/L (3.4-5.0); Sodium 135 mmol/L (137-145)
[2021-06-16 08:25] LABS: Blood Urea Nitrogen < 2 mg/dL (9-20)
== END 2021-06-16 07:32 | disposition home or self-care (01) ==
LOC: ANHLAB 07:35
PROVIDERS: PCP Family Medicine; Visit Provider Family Medicine
DX: D61.818 Other pancytopenia (principal); E87.6 Hypokalemia
CPT/HCPCS: 36415; 80053; 85025

== ENCOUNTER 2021-07-01 07:24 | Outpatient (CLI) | payer OTHER, SELFPAY ==
--- NOTE | ~2021-07-01 | MR_ITS ---
EXAMINATION: MR abdomen wo/w con DATE: 07/01/2021 08:58 INDICATION: Right kidney mass. TECHNIQUE: Magnetic resonance imaging (MRI) of the abdomen was performed without and with 20 mL Multi Vishnu intravenous contrast. COMPARISON: Ultrasound 05/16/2021, CT 05/16/2021 FINDINGS: There is diffuse hepatic steatosis. There is a 6 mm cyst in the liver. The gallbladder is distended, which may be secondary to fasting. There is mild splenomegaly. The pancreas, adrenal glands, and left kidney are normal. There is 11 mm hemorrhagic cyst in right kidney. There are no dilated loops of kvng wel. There are no pathologically enlarged lymph nodes. There is no free intraperitoneal fluid. IMPRESSION: 1. 11 mm hemorrhagic cyst in right kidney. 2. Diffuse hepatic steatosis. 3. Mild splenomegaly. Reviewed, dictated and finalized at location B.
== END 2021-07-01 07:25 | disposition home or self-care (01) ==
PROVIDERS: PCP Family Medicine; Visit Provider Family Medicine
DX: R93.5 Abnormal findings on diagnostic imaging of other abdominal regions, including retroperitoneum (principal); N28.9 Disorder of kidney and ureter, unspecified; K76.0 Fatty (change of) liver, not elsewhere classified; R16.1 Splenomegaly, not elsewhere classified; N28.1 Cyst of kidney, acquired
CPT/HCPCS: 74183; A9577

== ENCOUNTER 2021-07-19 10:04 | Outpatient (CLI) | payer OTHER, SELFPAY ==
[2021-07-19 10:58] LABS: Basophils Absolute Auto 0.1 K/mm3 (0.0-0.1); Basophils Percent Auto 1.8 % (0.2-1.2); Eosinophils Absolute Auto 0.1 K/mm3 (0-0.3); Eosinophils Percent Auto 1.8 % (0-4.4); Hematocrit 46.5 % (42.0-52.0); Immature Granulocyte Absolute 0.03 K/mm3 (0.00-0.031); Immature Granulocyte Percent A 0.6 % (0-0.5); Lymphocytes Absolute Auto 1.43 K/mm3 (0.9-3.2); Lymphocytes Percent Auto 28.5 % (18.3-44.2); Mean Corpuscular HGB Conc 32.3 g/dl (32-36); Mean Corpuscular Hemoglobin 31.6 pg (26-34); Mean Corpuscular Volume 97.9 fl (80-100); Mean Platelet Volume 9.3 fl (7.4-10.4); Monocytes Absolute Auto 0.5 K/mm3 (0.1-0.6); Monocytes Percent Auto 10.4 % (2.6-8.5); Neutrophils Absolute Auto 2.9 K/mm3 (1.3-6.7); Neutrophils Percent Auto 56.9 % (45.5-73.1); Platelet Count Result 154 k/mm3 (150-375); Red Blood Count 4.75 M/mm3 (4.6-6.20); Red Cell Distribution Width 13.5 % (11.5-14.5)
[2021-07-19 13:07] LABS: Iron 157 ug/dL (49-181)
[2021-07-19 13:09] LABS: Alanine Aminotransferase 26 U/L (6-50); Alkaline Phosphatase 151 U/L (38-126); Anion Gap 6 mmol/L (8-16); Aspartate Amino Transferase 63 U/L (17-59); Bilirubin,Total 0.7 mg/dL (0.2-1.3); Blood Urea Nitrogen 4 mg/dL (9-20); Calcium 9.2 mg/dL (8.4-10.2); Carbon Dioxide 30 mmol/L (22-30); Chloride 100 mmol/L (98-107); Estimated Glomerular Filt Rate > 60; Glucose 112 mg/dL (65-110); Potassium 4.2 mmol/L (3.4-5.0); Sodium 136 mmol/L (137-145)
[2021-07-19 13:20] LABS: Percent Iron Saturation 53 % (20-50)
[2021-07-19 14:15] LABS: Folic Acid 2.8 ng/mL (2.76->20)
== END 2021-07-19 10:05 | disposition home or self-care (01) ==
PROVIDERS: PCP Family Medicine; Visit Provider Internal Medicine Hematology & Oncology
DX: D64.9 Anemia, unspecified (principal)
CPT/HCPCS: 36415; 80053; 82607; 82728; 82746; 83540; 83550; 85025

== ENCOUNTER 2021-10-31 09:43 | Outpatient (CLI) | payer OTHER, SELFPAY ==
[2021-10-31 10:00] LABS: Basophils Absolute Auto 0.1 K/mm3 (0.0-0.1); Basophils Percent Auto 1.4 % (0.2-1.2); Eosinophils Absolute Auto 0.1 K/mm3 (0-0.3); Eosinophils Percent Auto 2.1 % (0-4.4); Hemoglobin 13.6 g/dL (14.0-18.0); Immature Granulocyte Absolute 0.03 K/mm3 (0.00-0.031); Immature Granulocyte Percent A 0.5 % (0-0.5); Lymphocytes Absolute Auto 1.42 K/mm3 (0.9-3.2); Lymphocytes Percent Auto 22.5 % (18.3-44.2); Mean Corpuscular HGB Conc 34.9 g/dl (32-36); Mean Corpuscular Hemoglobin 38.9 pg (26-34); Mean Corpuscular Volume 111.4 fl (80-100); Mean Platelet Volume 8.7 fl (7.4-10.4); Monocytes Absolute Auto 0.6 K/mm3 (0.1-0.6); Monocytes Percent Auto 9.5 % (2.6-8.5); Neutrophils Absolute Auto 4.1 K/mm3 (1.3-6.7); Platelet Count Result 128 k/mm3 (150-375); Red Cell Distribution Width 14.4 % (11.5-14.5); White Blood Count 6.3 K/mm3 (4.5-10.0)
[2021-10-31 11:02] LABS: Iron 241 ug/dL (49-181)
[2021-10-31 11:06] LABS: Alanine Aminotransferase 40 U/L (6-50); Albumin Level 4.2 g/dL (3.5-5.1); Alkaline Phosphatase 128 U/L (38-126); Anion Gap 10 mmol/L (8-16); Aspartate Amino Transferase 77 U/L (17-59); Bilirubin,Total 1.1 mg/dL (0.2-1.3); Blood Urea Nitrogen 6 mg/dL (9-20); Calcium 8.9 mg/dL (8.4-10.2); Carbon Dioxide 29 mmol/L (22-30); Chloride 98 mmol/L (98-107); Estimated Glomerular Filt Rate > 60; Glucose 120 mg/dL (65-110); Potassium 3.9 mmol/L (3.4-5.0); Sodium 137 mmol/L (137-145)
[2021-10-31 11:14] LABS: Percent Iron Saturation 74 % (20-50)
[2021-10-31 12:10] LABS: Folic Acid 1.8 ng/mL (2.76->20)
== END 2021-10-31 09:44 | disposition home or self-care (01) ==
LOC: ANHLAB 09:45
PROVIDERS: PCP Family Medicine; Visit Provider Internal Medicine Hematology & Oncology
DX: D64.9 Anemia, unspecified (principal)
CPT/HCPCS: 36415; 80053; 82607; 82728; 82746; 83540; 83550; 85025

== ENCOUNTER 2022-05-01 11:06 | Outpatient (CLI) | payer OTHER, SELFPAY ==
[2022-05-01 11:23] LABS: Basophils Absolute Auto 0.1 K/mm3 (0.0-0.1); Basophils Percent Auto 1.6 % (0.2-1.2); Eosinophils Absolute Auto 0.3 K/mm3 (0-0.3); Eosinophils Percent Auto 5.9 % (0-4.4); Hematocrit 38.8 % (42.0-52.0); Hemoglobin 13.1 g/dL (14.0-18.0); Immature Granulocyte Absolute 0.03 K/mm3 (0.00-0.031); Immature Granulocyte Percent A 0.6 % (0-0.5); Lymphocytes Absolute Auto 1.17 K/mm3 (0.9-3.2); Lymphocytes Percent Auto 23.6 % (18.3-44.2); Mean Corpuscular HGB Conc 33.8 g/dl (32-36); Mean Corpuscular Hemoglobin 37.8 pg (26-34); Mean Corpuscular Volume 111.8 fl (80-100); Mean Platelet Volume 9.7 fl (7.4-10.4); Monocytes Absolute Auto 0.6 K/mm3 (0.1-0.6); Monocytes Percent Auto 11.5 % (2.6-8.5); Neutrophils Absolute Auto 2.8 K/mm3 (1.3-6.7); Neutrophils Percent Auto 56.8 % (45.5-73.1); Platelet Count Result 171 k/mm3 (150-375); Red Blood Count 3.47 M/mm3 (4.6-6.20); Red Cell Distribution Width 13.6 % (11.5-14.5)
[2022-05-01 12:43] LABS: Iron 171 ug/dL (49-181)
[2022-05-01 12:46] LABS: Alanine Aminotransferase 36 U/L (6-50); Albumin Level 3.9 g/dL (3.5-5.1); Alkaline Phosphatase 124 U/L (38-126); Anion Gap 5 mmol/L (8-16); Aspartate Amino Transferase 41 U/L (17-59); Bilirubin,Total 0.5 mg/dL (0.2-1.3); Blood Urea Nitrogen 8 mg/dL (9-20); Calcium 8.8 mg/dL (8.4-10.2); Carbon Dioxide 30 mmol/L (22-30); Chloride 102 mmol/L (98-107); Estimated Glomerular Filt Rate > 60; Glucose 116 mg/dL (65-110); Potassium 4.1 mmol/L (3.4-5.0); Sodium 137 mmol/L (137-145)
[2022-05-01 12:53] LABS: Percent Iron Saturation 57 % (20-50)
== END 2022-05-01 11:07 | disposition home or self-care (01) ==
LOC: ANHLAB 11:09
PROVIDERS: PCP Family Medicine; Visit Provider Internal Medicine Hematology & Oncology
DX: D64.9 Anemia, unspecified (principal)
CPT/HCPCS: 36415; 80053; 83540; 83550; 85025

== ENCOUNTER 2022-11-02 08:58 | Outpatient (CLI) | payer OTHER, SELFPAY ==
[2022-11-02 09:25] LABS: Basophils Absolute Auto 0.1 K/mm3 (0.0-0.1); Basophils Percent Auto 1.6 % (0.2-1.2); Eosinophils Absolute Auto 0.2 K/mm3 (0-0.3); Eosinophils Percent Auto 3.8 % (0-4.4); Hematocrit 45.8 % (42.0-52.0); Hemoglobin 15.5 g/dL (14.0-18.0); Immature Granulocyte Absolute 0.03 K/mm3 (0.00-0.031); Immature Granulocyte Percent A 0.5 % (0-0.5); Lymphocytes Absolute Auto 1.05 K/mm3 (0.9-3.2); Lymphocytes Percent Auto 18.4 % (18.3-44.2); Mean Corpuscular HGB Conc 33.8 g/dl (32-36); Mean Corpuscular Hemoglobin 34.9 pg (26-34); Mean Corpuscular Volume 103.2 fl (80-100); Mean Platelet Volume 9.6 fl (7.4-10.4); Monocytes Absolute Auto 0.5 K/mm3 (0.1-0.6); Monocytes Percent Auto 9.3 % (2.6-8.5); Neutrophils Absolute Auto 3.8 K/mm3 (1.3-6.7); Neutrophils Percent Auto 66.4 % (45.5-73.1); Platelet Count Result 120 k/mm3 (150-375); Red Blood Count 4.44 M/mm3 (4.6-6.20); Red Cell Distribution Width 12.8 % (11.5-14.5); White Blood Count 5.7 K/mm3 (4.5-10.0)
[2022-11-02 12:40] LABS: Alanine Aminotransferase 37 U/L (6-50); Alkaline Phosphatase 117 U/L (38-126); Anion Gap 10 mmol/L (8-16); Aspartate Amino Transferase 77 U/L (17-59); Bilirubin,Total 1.3 mg/dL (0.2-1.3); Blood Urea Nitrogen 4 mg/dL (9-20); Calcium 9.1 mg/dL (8.4-10.2); Carbon Dioxide 28 mmol/L (22-30); Chloride 96 mmol/L (98-107); Estimated Glomerular Filt Rate > 60; Glucose 147 mg/dL (65-110); Potassium 3.7 mmol/L (3.4-5.0); Sodium 134 mmol/L (137-145)
[2022-11-02 16:27] LABS: Iron 163 ug/dL (49-181)
[2022-11-02 16:42] LABS: Percent Iron Saturation 56 % (20-50)
== END 2022-11-02 08:59 | disposition home or self-care (01) ==
PROVIDERS: PCP Family Medicine; Visit Provider Internal Medicine Hematology & Oncology
DX: D64.9 Anemia, unspecified (principal)
CPT/HCPCS: 36415; 80053; 82728; 83540; 83550; 85025

== ENCOUNTER 2023-02-05 10:20 | Outpatient (CLI) | payer OTHER, SELFPAY ==
[2023-02-05 11:07] LABS: Cholesterol 169 mg/dL (0-200); HDL Direct 33 mg/dL; Triglycerides 137 mg/dL (<150)
[2023-02-05 11:20] LABS: LDL Cholesterol Direct 108 mg/dL
[2023-02-05 11:32] LABS: Hemoglobin A1C 5.6 % (<5.7)
[2023-02-05 11:38] LABS: Prostate Specific Antigen 0.1 ng/mL (< OR = 4.0)
== END 2023-02-05 10:21 | disposition home or self-care (01) ==
LOC: ANHLAB 10:21
PROVIDERS: PCP Nurse Practitioner Family; Visit Provider Nurse Practitioner Family
DX: Z12.5 Encounter for screening for malignant neoplasm of prostate (principal); E78.2 Mixed hyperlipidemia; R73.01 Impaired fasting glucose
CPT/HCPCS: 36415; 80061; 83036; 84153; G0103

== ENCOUNTER 2023-05-06 10:42 | Outpatient (CLI) | payer OTHER, SELFPAY ==
[2023-05-06 10:54] LABS: Basophils Absolute Auto 0.1 K/mm3 (0.0-0.1); Basophils Percent Auto 1.1 % (0.2-1.2); Eosinophils Absolute Auto 0.2 K/mm3 (0-0.3); Eosinophils Percent Auto 2.2 % (0-4.4); Hematocrit 41.3 % (42.0-52.0); Hemoglobin 14.4 g/dL (14.0-18.0); Immature Granulocyte Absolute 0.06 K/mm3 (0.00-0.031); Immature Granulocyte Percent A 0.8 % (0-0.5); Lymphocytes Absolute Auto 0.98 K/mm3 (0.9-3.2); Lymphocytes Percent Auto 13.6 % (18.3-44.2); Mean Corpuscular HGB Conc 34.9 g/dl (32-36); Mean Corpuscular Volume 114.7 fl (80-100); Mean Platelet Volume 9.1 fl (7.4-10.4); Monocytes Absolute Auto 0.6 K/mm3 (0.1-0.6); Monocytes Percent Auto 8.5 % (2.6-8.5); Neutrophils Absolute Auto 5.3 K/mm3 (1.3-6.7); Neutrophils Percent Auto 73.8 % (45.5-73.1); Platelet Count Result 120 k/mm3 (150-375); Red Cell Distribution Width 13.5 % (11.5-14.5); White Blood Count 7.2 K/mm3 (4.5-10.0)
[2023-05-06 14:06] LABS: Alanine Aminotransferase 32 U/L (6-50); Albumin Level 4.1 g/dL (3.5-5.1); Alkaline Phosphatase 160 U/L (38-126); Anion Gap 9 mmol/L (8-16); Aspartate Amino Transferase 93 U/L (17-59); Bilirubin,Total 2.2 mg/dL (0.2-1.3); Blood Urea Nitrogen 3 mg/dL (9-20); Calcium 9.4 mg/dL (8.4-10.2); Carbon Dioxide 31 mmol/L (22-30); Chloride 99 mmol/L (98-107); Estimated Glomerular Filt Rate > 60; Glucose 150 mg/dL (65-110); Potassium 3.6 mmol/L (3.4-5.0); Sodium 139 mmol/L (137-145)
[2023-05-06 14:40] LABS: Iron 160 ug/dL (49-181)
[2023-05-06 14:50] LABS: Percent Iron Saturation 66 % (20-50)
== END 2023-05-06 10:43 | disposition home or self-care (01) ==
LOC: ANHLAB 10:44
PROVIDERS: PCP Nurse Practitioner Family; Visit Provider Internal Medicine Hematology & Oncology
DX: D64.9 Anemia, unspecified (principal)
CPT/HCPCS: 36415; 80053; 82728; 83540; 83550; 85025

== ENCOUNTER 2023-11-07 12:21 | Outpatient (CLI) | payer OTHER, SELFPAY ==
[2023-11-07 12:36] LABS: Basophils Absolute Auto 0.1 K/mm3 (0.0-0.1); Basophils Percent Auto 1.5 % (0.2-1.2); Eosinophils Absolute Auto 0.1 K/mm3 (0-0.3); Hematocrit 31.9 % (42.0-52.0); Hemoglobin 10.8 g/dL (14.0-18.0); Immature Granulocyte Absolute 0.02 K/mm3 (0.00-0.031); Immature Granulocyte Percent A 0.4 % (0-0.5); Immature Platelet Fraction Pct 3.6 % (0.9-11.2); Lymphocytes Absolute Auto 1.08 K/mm3 (0.9-3.2); Lymphocytes Percent Auto 23.2 % (18.3-44.2); Mean Corpuscular HGB Conc 33.9 g/dl (32-36); Mean Corpuscular Hemoglobin 35.6 pg (26-34); Mean Corpuscular Volume 105.3 fl (80-100); Mean Platelet Volume 9.2 fl (7.4-10.4); Monocytes Absolute Auto 0.5 K/mm3 (0.1-0.6); Monocytes Percent Auto 11.4 % (2.6-8.5); Neutrophils Absolute Auto 2.8 K/mm3 (1.3-6.7); Neutrophils Percent Auto 60.5 % (45.5-73.1); Platelet Count Result 49 k/mm3 (150-375); Red Blood Count 3.03 M/mm3 (4.6-6.20); Red Cell Distribution Width 15.9 % (11.5-14.5); White Blood Count 4.7 K/mm3 (4.5-10.0)
[2023-11-07 13:28] LABS: Iron 108 ug/dL (49-181)
[2023-11-07 13:35] LABS: Alanine Aminotransferase 44 U/L (6-50); Albumin Level 3.6 g/dL (3.5-5.1); Alkaline Phosphatase 175 U/L (38-126); Anion Gap 5 mmol/L (4-12); Aspartate Amino Transferase 156 U/L (17-59); Bilirubin,Total 5.2 mg/dL (0.2-1.3); Blood Urea Nitrogen 4 mg/dL (9-20); Calcium 8.4 mg/dL (8.4-10.2); Carbon Dioxide 27 mmol/L (22-30); Chloride 94 mmol/L (98-107); Estimated Glomerular Filt Rate > 60; Glucose 107 mg/dL (65-110); Sodium 126 mmol/L (137-145)
[2023-11-07 13:42] LABS: Percent Iron Saturation 50 % (20-50)
== END 2023-11-07 12:22 | disposition home or self-care (01) ==
LOC: ANHLAB 12:22
PROVIDERS: PCP Nurse Practitioner Family; Visit Provider Internal Medicine Hematology & Oncology
DX: E83.19 Other disorders of iron metabolism (principal)
CPT/HCPCS: 36415; 80053; 82728; 83540; 83550; 85025; 85055

== ENCOUNTER 2024-06-12 11:10 | Outpatient (CLI) | payer OTHER, SELFPAY ==
[2024-06-12 11:21] LABS: Hemoglobin 12.7 g/dL (14.0-18.0); Mean Corpuscular HGB Conc 36.3 g/dl (32-36); Mean Corpuscular Hemoglobin 33.9 pg (26-34); Mean Corpuscular Volume 93.3 fl (80-100); Mean Platelet Volume 9.8 fl (7.4-10.4); Platelet Count Result 84 k/mm3 (150-375); Red Blood Count 3.75 M/mm3 (4.6-6.20); Red Cell Distribution Width 13.5 % (11.5-14.5); White Blood Count 7.9 K/mm3 (4.5-10.0)
--- OUTSIDE RECORDS SUMMARY | 2024-06-12 11:32 | XMS_ITS | Encounter Summary ---
Author Organization [facility] Address [address] [place] [address] Care Team Providers Care Medical Reception Specialist Name Role Phone Mine Ventura NP Primary Care Provider [phone] Herman Bhatia MD Unavailable [phone] Zhang Simental MD Unavailable [phone] Encounter Details Date Type Department Care Team (Late st Contact Info) Description 05/13/2024 Results Follow-Up [facility] Gastroenterology at [address] [place] [address] Juan Cowan MD [address] [place] [id number] Social History Tobacco Use Types Packs/Day Years Used Date Smoking Tobacco: Former Cigarettes Smokeless Tobacco: Never [facility] Utilities Answer Date Recorded In the past 12 months has [employer], gas, oil, or water [employer] threatened to shut off services in your home? No 01/14/2024 Social Connection and Isolat ion Panel [NHANES] Answer Date Recorded In a typical week, how many times do you talk on the phone with family, friends, or neighbors? More than three times a week 01/14/2024 How often do you get togethe r with friends or relatives? More than three times a week 01/14/2024 How often do you attend formerly [facility] or baptist services? Never 01/14/2024 Do you belong to any clubs o r organizations such as restoration groups, unions, fraternal or athletic groups, or school groups? No 01/14/2024 How often do you attend meet ings of the clubs or organizations you belong to? Never 01/14/2024 Are you , , di vorced, , never , or living with a partner? 01/14/2024 AUDIT-C Answer Date Recorded Q1: How often do you have a drink containing alcohol? Never 05/12/2024 Q2: How many drinks containi ng alcohol do you have on a typical day when you are drinking? Patient does not drink Q3: How often do you have si x or more drinks on one occasion? Never 05/12/2024 Overall Financial Resource Strain (CARDIA) Answe r Date Recorded How hard is it for you to pa y for the very basics like food, housing, medical care, and heating? Not very hard 01/14/2024 PHQ-2 Answer Date Recorded PHQ-2 Total Score 0 01/13/2024 Hunger Vital Sign Answer Date Recorded Within the past 12 months, y ou worried that your food would run out before you got the money to buy more. Never true 01/14/20 24 Within the past 12 months, t he food you bought just didn't last and you didn't have money to get more. Never true 01/14/2024 PRAPARE - Transportation Answer Date Re corded In the past 12 months, has l ack of transportation kept you from medical appointments or from getting medications? No 12/20 In the past 12 months, has l ack of transportation kept you from meetings, work, or from getting things needed for daily living? No 01/14/2024 PHQ-9 Answer Date Recorded PHQ-9 Total Score 1 01/13/2024 Housing Stability Vital Sign Answer Edgardo e Recorded In the last 12 months, was t here a time when you were not able to pay the mortgage or rent on time? No 01/14/2024 In the past 12 months, how m any times have you moved where you were living? 1 01/14/2024 At any time in the past 12 m [facility], were you homeless or living in a assisted (including now)? No 01/14/2024 Personal Safety Answer Date Recorded Have you ever been in or are you currently in a harmful physical or emotional relationship or is someone making you feel afraid or unsafe? 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 Gender Identity Not on file Sexual Orientation Not on file documented as of this encounter Plan of Treatment Not on file documented as of this encounter Visit Diagnoses Not on filedocumented in this encounter Care Teams Medical Reception Specialist Relationship Specialty Start Date End Date Mine Ventura NP [facility] [place] [address] PCP - General Nurse Practitioner 12/19/23 Herman Bhatia MD [address] [place] [id number] Consulting Physician Pulmonary Disease 12/31/23 Zhang Simental MD [address] [id number] Consulting Physician Nephrology 01/15/24 documented as of this encounter
--- OUTSIDE RECORDS SUMMARY | 2024-06-12 11:33 | XMS_ITS | Referral Summary ---
Author Organization [facility] Address [address] [place] [address] Care Team Providers Care Library Director Name Role Phone Mine Ventura NP Primary Care Provider Herman Bhatia MD Unavailable [phone] Zhang Simental MD Unavailable [phone] Encounters Date Type Department Care Team Description 05/26/19 25 Telephone [facility] G[facility]enterology [address] [facility] 12th [place] [address] [place] [address] Ricky Mast LPN 05/14/19 Results Follow-Up [facility] at [place] [address] [facility] [address] [place] [address] Juan Cowan MD 05/13/19 7:16 AM CDT Anesthesia Event [facility] [address] [place] [id number] Rocio Alatrore MD 05/13/19 7:30 AM CDT - 05/13/19 7:45 AM CDT Surgery [facility] [address] [place] [phone] Juan Cowan MD ESOPHAGOGASTRODUODENOSCOPY BIOPSY 05/13/19 6:28 AM CDT - 05/13/19 8:26 AM CDT Hospital Encounter [facility] [address] [place] [phone] Juan Cowan MD Alcoholic cirrhosis of liver without ascites (HCC) Discharge Disposition: Discharge to home or self care 05/09/19 25 Telephone [facility] [address] [place] [address] [place] [address] Ricky Mast LPN 05/09/19 25 Orders Only [facility]enterology [address] [place] [address] [place] [address] [place] [address] Ricky Mast LPN 05/09/19 25 Documentation [facility] [address] [place] [address] [place] [address] [place] [id number] Ricky Mast LPN 04/29/19 25 Telephone [facility] [address] [place] [address] [place] [address] [place] [address] Ricky Mast LPN 04/29/19 25 Orders Only [facility] [address] [place] [address] [place] [address] [place] [address] Ricky Mast LPN Portal hypertension (HCC) (Primary Dx) 04/28/19 25 Orders Only [facility] G[facility]enterology at [address] [place] [phone] Juan Cowan MD Alcoholic cirrhosis of liver without ascites (HCC) (Primary Dx) 04/28/19 25 Telephone [facility] [address] [place] [address] [place] [address] [place] [address] Kenzie Mondragon Schedule EGD 04/22/19 25 Telephone [facility] [address] [place] [address] [place] [address] [place] [address] [employer] CNA reschedule scope 04/22/19 25 Telephone [facility] [address] [place] [address] [place] [address] [place] [phone] Ricky Mast LPN 04/21/19 10:59 AM [employer]ILER[employer]IPE [employer] - 04/21/19 2:10 PM [employer]IPE FITTER Emergency [address] [address] Zhang Fierro MD Altered mental status, unspecified altered mental status type (Primary Dx); Alcoholic cirrhosis, unspecified whether ascites present (HCC) Discharge Disposition: Discharge to home or self care 04/16/19 Results Follow-Up [facility] [address] [place] [address] [facility] 12th [place] [address] [place] [address] Celso Hinton MD Alcoholic cirrhosis of liver without ascites (HCC) (Primary Dx) 04/16/19 Documentation [facility] [address] [place] [address] [place] [address] [place] [address] Ricky Mast LPN 04/16/19 10:45 AM BOILERMAKER PIPE FITTER Lab [facility] [address] [place] [phone] Alcoholic cirrhosis of liver without ascites (HCC) 04/16/19 8:40 AM BOILERMAK[employer] PIPE [employer]TER Office Visit [facility] [address] [place] [address] [place] [address] [place] [address] Celso Hinton MD Alcoholic cirrhosis of liver without ascites (HCC) (Primary Dx) from Last 3 Months Allergies No known active allergies Medications senna-docusate (PERICOLACE) 8.6-50 mg Take 1 tablet by mouth 2 (two) times a day as needed for constipation 30 tablet 08/20/19 21 Active Additional Information Patient not taking.Reported on 04/16/2024 phenylephrine-co coa butter (Preparation H,pe,cb,) 0.25-88.44 % suppository Insert 1 suppository into the rectum 2 (two) times a day as needed (hemorrhoids) 30 suppository 08/20/19 21 Active Additional Information Patient not taking.Reported on 04/16/2024 albuterol HFA (PROVENTIL HFA,VENTOLIN HFA,PROAIR HFA) 90 mcg/actuation inhaler Inhale 2 puffs every 4 (four) hours as needed for shortness of breath or wheezing (sob) 06/28/19 24 Active acetaminophen (TYLENOL) 500 mg tablet Take 2 tablets (1,000 mg total) by mouth 2 (two) times a day 04/24/19 23 Active methocarbamoL (ROBAXIN) 750 mg tablet Take 1 tablet (750 mg total) by mouth 3 (three) times a day as needed for muscle spasms 30 tablet 12/31/19 24 Active Additional Information Patient not taking.Reported on 04/16/2024 lactulose solution 10 gram/15mL Take 30 mL (20 g total) by mouth every 8 (eight) hours 2700 mL 12/31/19 24 Active Additional Information Patient not taking.Reported on 05/01/2024 gabapentin (NEURONTIN) 300 mg capsule Take 1 capsule (300 mg total) by mouth 3 (three) times a day Pt not taking as prescribed. 90 capsule 01/15/20 24 Active spironolactone (ALDACTONE) 25 mg tablet Take 1 tablet (25 mg total) by mouth daily 30 tablet 1 01/16/20 24 Active furosemide (LASIX) 40 mg tablet Take 1 tablet (40 mg total) by mouth 2 (two) times a day 60 tablet 1 01/15/20 24 Active umeclidinium-nava anteroL (ANORO ELLIPTA) 62.5-25 mcg/actuation blister with device Inhale daily Active spironolactone (ALDACTONE) 25 mg tablet Take 1 tablet (25 mg total) by mouth daily Active furosemide (LASIX) 40 mg tablet Take 1 tablet (40 mg total) by mouth 2 (two) times a day Active gabapentin (NEURONTIN) 300 mg capsule Take 1 capsule (300 mg total) by mouth 3 (three) times a day Active naltrexone (DEPADE) 50 mg tablet Take 1 tablet (50 mg total) by mouth daily 30 tablet 04/16/19 25 026 Active carvediloL (COREG) 6.25 mg tabletIndication s:Portal hypertension (HCC) Take 1 tablet (6.25 mg total) by mouth 2 (two) times a day with meals 60 tablet 04/29/19 25 03/11/2 026 Active Active Problems Problem Noted Date Diagnosed Date Alcoholic cirrhosis of liver without ascites CHF exacerbation 01/12/2024 Bilateral lower extremity edema 01/12/2024 Hyponatremia 12/19/2023 Pleural effusion, left 12/19/2023 Transaminitis 07/25/2023 Alcohol abuse 07/25/2023 Frequent falls 05/25/2021 Multiple fractures of ribs, bilateral, sequela 0 05/25/2021 Chronic anemia 01/27/2021 Acne rosacea 04/16/2019 Resolved Problems Problem Noted Date Diagnosed Date Resolved Date Shortness of breath 12/19/2023 01/12/20 Pneumonia of right lung due to infectious organism 12/19/2023 01/12/2024 Left-sided chest pain 07/25/20232023 Syncope 07/25/2023 01/12/2024 Chest pain 07/25/2023 01/12/2024 Orchitis and epididymitis 04/19/2022 Acute cystitis without hematuria 04/16/2022 07/25/2023 Closed fracture of spinous p rocess of thoracic vertebra 05/25/2021 07/25/2023 Social History Tobacco Use Types Packs/Day Years Used Date Smoking Tobacco: Former Cigarettes Smokeless Tobacco: Never [facility] Prepared Responseities Answer Date Recorded In the past 12 months has [employer], gas, oil, or water Supply [employer] threatened to shut off services in your [...] week 01/14/2024 How often do you attend chur ch or uatsdin services? Never 01/14/2024 Do you belong to any clubs o r organizations such as holiness groups, unions, fraternal or athletic groups, or [...] any time in the past 12 [facility], were you homeless or living in a custodial (including now)? No 01/14/2024 Personal Safety Answer Date Recorded Have you ever been in or are you currently in a harmful physical or emotional relationship or is someone making you feel afraid or unsafe? Denies 05/12/2024 Sex and Gender Information Value Date Recorded Sex Assigned at Not on file Legal Sex Male 6:22 PM [employer]ER[employer] Gender Identity Not on file Sexual Orientation Not on file Last Filed Vital Signs Vital Sign Reading Time Taken Comments Blood Pressure 103/59 05/12/2024 8:00 AM CDT Pulse 66 05/12/2024 8:00 AM CDT Temperature 36.8 C (98.3 F) 05/12/2024 7:36 AM CDT Respiratory Rate 17 05/12/2024 8:00 AM CDT Oxygen Saturation 99% 05/12/2024 8:00 AM CDT Inhaled Oxygen Concentration - - Weight 106.6 kg (235 lb) 05/12/2024 6:43 AM CDT Height 188 cm (6' 2 ) 04/16/2024 7:59 AM [employer]TER Body Mass Index 30.17 04/16/2024 7:59 AM [employer]ILER[employer] PIPE FITTER Plan of Treatment Not on file Procedures Procedure Name Priority Date/Time Associated Diagnosis Comments SURGICAL PATHOLOGY Routine 05/12/2024 7:28 AM CDT Alcoholic cirrhosis of liver without ascites (HCC) ESOPHAGOGASTRODUODENOSCOPY BIOPSY 05/12/2024 7:16 AM CDT Alcoholic cirrhosis of liver without ascites (HCC) EGD 05/12/2024 6:55 AM CDT TROPONIN T HIGH-SENSITIVITY 2-HOUR Timed 04/20/2024 12:25 [address] [address] CHEST ABDOMEN PELVIS W CONTRAST ED 04/20/2024 12:13 [address] [employer] CT HEAD WO CONTRAST ED 04/20/2024 12:11 PM [employer]IL[employer] PIPE [employer]TER URINALYSIS, MICROSCOPIC ONLY STAT 04/2024 11:00 AM BOILERMAKER PIPE FITTER DRUGS OF ABUSE SCREEN, URINE WITH REFLEX CONFIRMATION STAT 04/20/2024 11:00 AM BOILERMAKER PIPE FITTER URINALYSIS AND REFLEX TO MICROSCOPIC AND CULTURE STAT 04/20/2024 11:00 AM BOILERMAKER PIPE FITTER PROTIME-INR STAT 04/20/2024 10:50 AM BOILERMAKER PIPE FITTER XR CHEST 1 VIEW ED 04/20/2024 10:43 AM BOILERMAKER PIPE FITTER EGFR STAT 04/20/2024 10:27 AM BOILERMAKER PIPE FITTER ETHANOL STAT 04/20/2024 10:27 AM BOILERMAKER PIPE FITTER DIFFERENTIAL AUTO STAT 04/20/2024 10:27 AM BOILERMAKER PIPE FITTER PRO B-TYPE NATRIURETIC PEPTIDE STAT 0 04/20/2024 10:27 AM BOILERMAKER PIPE FITTER AMMONIA STAT 04/20/2024 10:27 AM BOILERMAKER PIPE FITTER CBC WITH AUTO DIFFERENTIAL STAT 04/20 10:27 AM [employer]ILERMAKER PIPE FITTER COMPREHENSIVE METABOLIC PANEL STAT 10:27 AM BOILERMAKER PIPE FITTER LIPASE STAT 04/20/2024 10:27 AM BOILERMAKER PIPE FITTER MAGNESIUM STAT 04/20/2024 10:27 AM BOILERMAKER PIPE FITTER THYROID FUNCTION CASCADE STAT 025 10:27 AM BOILERMAKER PIPE FITTER TROPONIN T HIGH-SENSITIVITY SERIES (BASELINE, 2HR, 4HR, 6HR) STAT 04/20/2024 10:27 AM BOILERMAKER PIPE FITTER ECG 12-LEAD STAT 04/20/2024 10:19 AM BOILERMAKER PIPE [employer]TER IMMATURE PLATELET FRACTION Routine 04/16 10:09 AM BOILERMAKER PIPE FITTER Alcoholic cirrhosis of liver without ascites (HCC) EGFR Routine 04/16/2024 10:09 AM BOILERMAKER PIPE FITTER Alcoholic cirrhosis of liver without ascites (HCC) DIFFERENTIAL AUTO Routine 04/16/2024 10:09 AM BOILERMAKER PIPE FITTER Alcoholic cirrhosis of liver without ascites (HCC) CBC WITH AUTO DIFFERENTIAL Routine 04/16 10:09 AM BOILERMAKER PIPE FITTER Alcoholic cirrhosis of liver without ascites (HCC) COMPREHENSIVE METABOLIC PANEL Routine 10:09 AM BOILERMAKER PIPE FITTER Alcoholic cirrhosis of liver without ascites (HCC) [id number], TUMOR MARKER Routine 04/16/2024 10:09 AM BOILERMAKER PIPE FITTER Alcoholic cirrhosis of liver without ascites (HCC) HEPATITIS PANEL, ACUTE Routine 5:02 AM BOILERMAKER PIPE FITTER from Last 3 Months or Most Recently Relevant to Health Maintenance Results * Surgical pathology (05/12/2024 7:28 AM CDT) Tissue specimen (specimen) (Duodenum, Biopsy) 05/12/2024 7:28 AM CDT Tissue specimen (specimen) (Gastric/Stomach biopsy) 05/12/2024 7:29 AM CDT Narrative PATHOLOGY [facility] - 05/13/2024 2:37 PM CDT [facility] Department of Pathology [address] [place], [place] [id number] Note to Patients: This report may contain a detailed description of human tissue sent by a health care provider to the laboratory for pathologic evaluation. The content of this report is essential for diagnosis and may provide important critical findings. This information may be unfamiliar to patients to review without a medical professional present. It is advised that the patient review this report in the presence of a health care provider who can answer questions and explain the details. Final Report Patient Name: HARPREET SANTIAGO : 1975 (Age: 48) Gender: M Address: [address] [place] [address] [facility] #: [id number] Service: Gastro Location: Patient Type: [facility] OUTPATIENT Taken: 05/12/2024 Received: 05/12/2024 Accessioned: 05/12/2024 Reported: 05/13/2024 Physician(s): Francesco Florence FNP Diagnosis: A. Small bowel, duodenum, biopsy - Normal duodenal mucosa B. Stomach, body & antrum, biopsy - Normal oxyntic mucosa - No H. pylori organisms are identified by H&E examination Teresa Burgess MD Report Electronically Reviewed and Signed Out By Teresa Burgess MD 05/13/2024 14:37:39 Specimen(s) Received: A: Duodenal biopsy rule out Celiac's disease cold biopsy B: Gastric body & antrum rule out H. pylori cold biopsy Microscopic Description: Unless gross-only is specified, the final diagnosis for each specimen is based on a microscopic examination of each tissue sample. Clinical History: The patient is a 48-year-old man with alcoholic cirrhosis of the liver without ascites. Operative procedure: Upper GI endoscopy with biopsy. Gross Description Received in two formalin jars labeled with the patient's identifiers. A. Labeled duodenal biopsy rule out celiac disease-cold biopsy and consists of four liang tissue fragments ranging from 0.1-0.2 cm. Entirely submitted. Labeled A1. Jar 0. B. Labeled gastric body and antrum rule out H pylori-cold biopsy and consists of three liang tissue fragments ranging from 0.1-0.5 cm. Entirely submitted. Labeled B1. Jar 0. [facility]/05/12/2024 12:49 ALENA Cabello, PA ([facility] Microscopic slide review and interpretation for this case was performed at [facility], Department of Surgical Pathology, [address] [facility], [place] [id number], [place] [address] [facility] # [id number] us Juan Cowan MD LAB PATHOLOGY ORDERABLES Final R esult PATHOLOGY [facility] * EGD (05/12/2024 6:55 AM CDT) Anatomical Region Laterality Modality Other Narrative Procedure Note Juan Cowan MD - 05/12/2024 6:55 AM CDT [facility] GI ENDOSCOPY Patient Name: Harpreet Santiago Procedure Date: 05/12/2024 6:55 AM Date of : 1975 Admit Type: Outpatient Age: 48 Gender: Male Attending MD: Juan Cowan M.D. Room: [facility] ENDOSCOPY ROOM 03 Note Status: Finalized Procedure: Upper GI endoscopy Indications: Cirrhosis rule out esophageal varices Referring MD: Providers: Juan Cowan M.D. Medicines: Monitored Anesthesia Care Complications: No immediate complications. Procedure: Pre-Anesthesia Assessment: - Prior to the procedure, a History and Physicalwas performed, and patient medications and allergieswere reviewed. The risks and benefits of the procedureand the sedation options and risks were discussed withthe patient. All questions were answered and informed consent was obtained. Patient identification and proposed procedure were verified. After reviewingthe risks and benefits, the patient was deemed in satisfactory condition to undergo the procedure.The anesthesia plan was to use monitored anesthesiacare (MAC). Immediately prior to administration of medications, the patient was re-assessed foradequacy to receive sedatives. The heart rate, respiratory rate, oxygen saturations, blood pressure, adequacyof pulmonary ventilation, and response to care were monitored throughout the procedure. The physical status of the patient was re-assessed after the procedure. The benefits, risks, and alternatives to theprocedure and sedation were discussed and informed consentwas obtained. The scope was passed under direct vision. The GIF-H180 upper endoscope was introduced through the mouth, and advanced to the second part of duodenum. The upper GI endoscopy was accomplished without difficulty. The patient tolerated the procedure well. Findings: Grade I varices were found in the distal esophagus. They were smallin size. Moderate portal hypertensive gastropathy was found in the entire examined stomach. Biopsies were taken with a cold forceps forhistology. The examined duodenum was normal. Biopsies for histology were takenwith a cold forceps for evaluation of celiac disease. The cardia and gastric fundus were normal on retroflexion. The exam was otherwise without abnormality. No evidence of gastric varices. Impression: - Grade I esophageal varices, flattened with insufflation. - Portal hypertensive gastropathy. Biopsied. - Normal examined duodenum. Biopsied. - The examination was otherwise normal. No evidenceof gastric varices. Recommendation: - Patient has a contact number available for emergencies. The signs and symptoms of potential delayed complications were discussed with thepatient. Return to normal activities tomorrow. Written discharge instructions were provided to thepatient. - Resume previous diet. - Continue present medications. - Await pathology results. - Repeat upper endoscopy in 2 years forsurveillance. - Follow up with transplant hepatology. Juan Cowan M.D. Juan Cowan M.D. 05/12/2024 7:38:20 AM . Number of Addenda: 0 Note Initiated On: 05/12/2024 6:55 AM Recognized by the [employer] for promoting quality in endoscopy us Juan Cowan MD ENDOSCOPY PROCEDURES Final Resul t * (ABNORMAL) Troponin T high-sensitivity 2-hour (04/20/2024 12:25 PM BOILERMAKER PIPE FITTER) Trop T hs 26(H) <=22 ng/L Comment: Interpretive Data For further hscTnT resources including the diagnostic algorithm and an aid in interpretation, copy and paste this link: https://nrl.testcatalog.org/show/hsTrop Current Interpretive Data last revised 2019. Trop T hs delta -1 ng/L AUDREY LESTER Trop T hs interp Insignificant AUDREY LESTER Blood 04/20/2024 12:2 5 PM BOILERMAKER PIPE FITTER 04/20/2024 12:31 PM BOILERMAKER PIPE FITTER us Jacquie THOMAS LAB BLOOD ORDERABLES Final R esult AUDREY LESTER [address] [facility] Department [place] [address] * CT Chest Abdomen Pelvis W Contrast (04/20/2024 12:13 PM BOILERMAKER PIPE FITTER) Anatomical Region Laterality Modality Body N/A Computed Tomogra phy 04/20/2024 12:3 6 PM BOILERMAKER PIPE FITTER Narrative 04/20/2024 12:54 PM BOILERMAKER PIPE FITTER EXAM DESCRIPTION: CT CHEST ABDOMEN PELVIS W CONTRAST REASON FOR STUDY: Abdominal pain, acute, nonlocalized Pt awoke today with weakness, confusion States started a new med from his liver dr last week, follow up abnormal chest xray done today. History of prior thoracentesis TECHNIQUE: CT scan of the chest, abdomen, and pelvis performed with intravenous and without oral contrast using helical scanning technique with dynamic intravenous contrast injection. Reconstructed coronal and sagittal MPR images reviewed. All images stored on PACS. Automated exposure control was used as a dose optimization technique for this examination. CONTRAST TYPE/DOSE: 100mL of IOVERSOL 350 MG IODINE/ML INTRAVENOUS SYRINGE injected via intravenous COMPARISON: Chest radiograph today, CT chest 12/27/2023, CT abdomen 08/20/2020 FINDINGS: CHEST LUNGS: Central airways are patent. Peripheral ground-glass consolidative densities previously identified bilaterally have largely improved and resolved. Left lower lobe band like densities extending to pleural surfaces are improving as well suggesting resolving infiltrative or atelectasis. Additional similar improvement in the lingula. PLEURA: Pleural thickening with moderate effusions improving at the left base slightly improved from previous. MEDIASTINUM/BONIFACIO: Nonenlarged lymph nodes retrocaval pretracheal space, subcarinal space similar to previous. HEART: Heart size mildly enlarged. Minimal pericardial effusion. Coronary arterial calcification identified. VASCULATURE CHEST: No thoracic aortic aneurysm or dissection. AXILLA: No adenopathy. CHEST WALL: No masses. No subcutaneous air. HARDWARE/LINES/TUBES: None. MUSCULOSKELETAL CHEST: Multiple left-sided rib fractures are redemonstrated with progressive changes of healing and progressive moderate offset at the fracture sites.. ABDOMEN/PELVIS LIVER: Normal size. Fatty infiltrative changes. Multiple ill-defined hypodensities are new from previous and nonspecific in nature. Most are less than 1.0 cm in the left and right lobes. Along falciform ligament low densities demonstrated that was not well seen previously measuring up to 2.1 cm on axial image 38 of series 6. Slightly smaller changes adjacent to the gallbladder along the right lobe. These may indicate focal fatty infiltrative changes with other benign process such as cysts or small hemangiomas though new from previous. Please correlate clinically, with laboratory values consider MR imaging to better characterize if clinically warranted. GALLBLADDER: Normally distended BILE DUCTS: No intrahepatic or extrahepatic ductal dilatation. SPLEEN: Normal size. No focal lesions. PANCREAS: No identified cystic or solid masses. No significant calcifications. No adjacent inflammation or peripancreatic fluid collections. Pancreatic duct not dilated. ADRENALS: Normal. KIDNEYS/URINARY TRACT: No identified significant cystic or solid masses. No visualized stones. No hydronephrosis or hydroureter. Symmetric enhancement. Urinary bladder is unremarkable. GI: No dilated bowel loops. No obvious wall thickening. Normal appendix. No significant diverticular disease. PERITONEUM: No ascites or free air. RETROPERITONEUM: No mass or adenopathy. REPRODUCTIVE: No significant abnormality. VASCULATURE ABDOMEN: No abdominal aortic aneurysm. Numerous vascular structures through the mesentery and peritoneal surfaces suggesting a degree of portal venous hypertension. MUSCULOSKELETAL ABDOMEN PELVIS: No acute finding. OTHER: No significant abnormality. IMPRESSION: Multiple left-sided rib fractures are redemonstrated with progressive changes of healing and moderate offset at the fracture sites. Improving moderate-sized effusion and adjacent atelectasis and/or infiltrate. Multiple ill-defined hypodensities in the liver are new from previous and may represent focal fatty infiltrative changes with other benign processes such as cysts or hemangiomas not excluded. These are new from previous and underlying lesions are a concern, MR imaging could better characterize. Numerous vascular structures through the mesentery and peritoneal surfaces suggesting a degree of portal venous hypertension. THIS IS AN ELECTRONICALLY VERIFIED FINAL REPORT 04/20/2024 12:54 PM - Electronically signed by Jostin GOLDBERG T: Report ID: [id number] Reading Location: [id number] Procedure Note Jostin Alatorre MD - 04/20/2024 EXAM DESCRIPTION: CT CHEST ABDOMEN PELVIS W CONTRAST REASON FOR STUDY: Abdominal pain, acute, nonlocalized Pt awoke today with weakness, confusion States started a new med from his liver dr last week, follow up abnormal chest xray done today. History ofprior thoracentesis TECHNIQUE: CT scan of the chest, abdomen, and pelvis performed with intravenous and without oral contrast using helical scanning techniquewith dynamic intravenous contrast injection. Reconstructed coronal and sagittalMPR images reviewed. All images stored on PACS. Automated exposure control was used as a dose optimization technique for this examination. CONTRAST TYPE/DOSE: 100mL of IOVERSOL 350 MG IODINE/ML INTRAVENOUS SYRINGE injected via intravenous COMPARISON: Chest radiograph today, CT chest 12/27/2023, CT [id number]/2020 FINDINGS: CHEST LUNGS: Central airways are patent. Peripheral ground-glass consolidative densities previously identified bilaterally have largely improved and resolved. Left lower lobe band like densities extending to pleural surfaces are improving as well suggesting resolving infiltrative or atelectasis. Additional similar improvement in the lingula. PLEURA: Pleural thickening with moderate effusions improving at the left base slightly improved from previous. MEDIASTINUM/BONIFACIO: Nonenlarged lymph nodes retrocaval pretracheal space, subcarinal space similar to previous. HEART: Heart size mildly enlarged. Minimal pericardial effusion.Coronary arterial calcification identified. VASCULATURE CHEST: No thoracic aortic aneurysm or dissection. AXILLA: No adenopathy. CHEST WALL: No masses. No subcutaneous air. HARDWARE/LINES/TUBES: None. MUSCULOSKELETAL CHEST: Multiple left-sided rib fractures areredemonstrated with progressive changes of healing and progressive moderate offset at the fracture sites.. ABDOMEN/PELVIS LIVER: Normal size. Fatty infiltrative changes. Multiple ill-defined hypodensities are new from previous and nonspecificin nature. Most are less than 1.0 cm in the left and right lobes. Along falciform ligament low densities demonstrated that was not well seen previously measuring up to 2.1 cm on axial image 38 of series 6. Slightly smaller changes adjacent to the gallbladder along the right lobe. Thesemay indicate focal fatty infiltrative changes with other benign process suchas cysts or small hemangiomas though new from previous. Please correlate clinically, with laboratory values consider MR imaging to bettercharacterize if clinically warranted. GALLBLADDER: Normally distended BILE DUCTS: No intrahepatic or extrahepatic ductal dilatation. SPLEEN: Normal size. No focal lesions. PANCREAS: No identified cystic or solid masses. No significant calcifications. No adjacent inflammation or peripancreatic fluidcollections. Pancreatic duct not dilated. ADRENALS: Normal. KIDNEYS/URINARY TRACT: No identified significant cystic or solid masses.No visualized stones. No hydronephrosis or hydroureter. Symmetricenhancement. Urinary bladder is unremarkable. GI: No dilated bowel loops. No obvious wall thickening. Normalappendix. No significant diverticular disease. PERITONEUM: No ascites or free air. RETROPERITONEUM: No mass or adenopathy. REPRODUCTIVE: No significant abnormality. VASCULATURE ABDOMEN: No abdominal aortic aneurysm. Numerous vascular structures through the mesentery and peritoneal surfaces suggesting adegree of portal venous hypertension. MUSCULOSKELETAL ABDOMEN PELVIS: No acute finding. OTHER: No significant abnormality. IMPRESSION: Multiple left-sided rib fractures are redemonstrated with progressivechanges of healing and moderate offset at the fracture sites. Improving moderate-sized effusion and adjacent atelectasis and/orinfiltrate. Multiple ill-defined hypodensities in the liver are new from previous andmay represent focal fatty infiltrative changes with other benign processessuch as cysts or hemangiomas not excluded. These are new from previous andunderlying lesions are a concern, MR imaging could better characterize. Numerous vascular structures through the mesentery and peritonealsurfaces suggesting a degree of portal venous hypertension. THIS IS AN ELECTRONICALLY VERIFIED FINAL REPORT 04/20/2024 12:54 PM - Electronically signed by Jostin Alatorre M.D. RB T: Report ID: [id number] Reading Location: [id number] Jacquie THOMAS IMG CT PROCEDURES Final Resu lt * CT Head WO Contrast (04/20/2024 12:11 PM BOILERMAKER PIPE FITTER) Anatomical Region Laterality Modality Head and Neck N/A Computed Tomogra phy 04/20/2024 12:3 3 PM BOILERMAKER PIPE FITTER Narrative 04/20/2024 12:41 PM BOILERMAKER PIPE FITTER EXAM DESCRIPTION: CT HEAD WO CONTRAST REASON FOR STUDY: Altered mental status Pt reports onset of constant dizziness, nausea, and not myself that started approximately 30 minutes after taking two new medicines Carvedilol and Naltrexone around 0830 this morning. He answers questions appropriately, but takes longer than his usual to reply. TECHNIQUE: Axial images acquired through the brain without intravenous contrast. Images stored on PACS. Automated exposure control was used as a dose optimization technique for this examination. COMPARISON: 07/24/2023. FINDINGS: BRAIN: No hemorrhage, edema or mass effect. Unchanged cerebral volume and ventricular size. Mild periventricular white matter hypoattenuation is stable and likely chronic microvascular ischemia in a patient of this age. No gross CT evidence for acute infarct is seen.. No suspicious vascular hyperdensity is seen. There is cavernous carotid athero sclerotic calcification. EXTRA-AXIAL SPACES: No fluid collections. No masses. CALVARIUM: No fracture. SINUSES/MASTOIDS: Mild opacification of the left mastoid air cells.. Mild bilateral maxillary and ethmoid sinus mucosal thickening. ORBITS: No significant abnormality. OTHER: Unchanged subcutaneous 1 cm lesion in the posterior left scalp, probably a sebaceous cyst or epidermal inclusion cyst. IMPRESSION: No acute intracranial findings. Additional findings, as above. THIS IS AN ELECTRONICALLY VERIFIED FINAL REPORT 04/20/2024 12:41 PM - Electronically signed by Bryant Mccoy M.D. MZ T: Report ID: [id number] Reading Location: [id number] Procedure Note Bryant Mccoy MD - 04/20/2024 EXAM DESCRIPTION: CT HEAD WO CONTRAST REASON FOR STUDY: Altered mental status Pt reports onset of constant dizziness, nausea, and not myself thatstarted approximately 30 minutes after taking two new medicines Carvedilol and Naltrexone around 0830 this morning. He answers questions appropriately,but takes longer than his usual to reply. TECHNIQUE: Axial images acquired through the brain without intravenous contrast. Images stored on PACS. Automated exposure control was used asa dose optimization technique for this examination. COMPARISON: 07/24/2023. FINDINGS: BRAIN: No hemorrhage, edema or mass effect. Unchangedcerebral volume and ventricular size. Mild periventricular white matter hypoattenuation is stable and likely chronic microvascular ischemia in a patient of this age. No gross CT evidence for acute infarct is seen.. No suspicious vascular hyperdensity is seen. There is cavernous carotidathero sclerotic calcification. EXTRA-AXIAL SPACES: No fluid collections. No masses. CALVARIUM: No fracture. SINUSES/MASTOIDS: Mild opacification of the left mastoid air cells..Mild bilateral maxillary and ethmoid sinus mucosal thickening. ORBITS: No significant abnormality. OTHER: Unchanged subcutaneous 1 cm lesion in the posterior left scalp, probably a sebaceous cyst or epidermal inclusion cyst. IMPRESSION: No acute intracranial findings. Additional findings, as above. THIS IS AN ELECTRONICALLY VERIFIED FINAL REPORT 04/20/2024 12:41 PM - Electronically signed by Bryant Mccoy M.D. MZ T: Report ID: [id number] Reading Location: [place] [id number] PROCEDURES Final Resu lt * (ABNORMAL) Drugs of Abuse Screen, Urine with Reflex Confirmation (04/20/2024 11:00 AM BOILERMAKER PIPE FITTER) Amphetamine, ur Not Detected CutOff 500ng/mL Comment: Interpretive Data - Amphetamines: Samples containing greater than 500 ng/mL d-methamphetamine or other cross-reacting amphetamine compounds are reported as positive. Amphetamine immunoassays are subject to significant false positive rates due to cross-reactivity of non-amphetamine drugs. Confirmatory testing required for definitive results. Current Interpretive Data was last reviewed 2022. Barbiturates, ur Not Detected CutOff 200ng/mL [facility] Comment: Interpretive Data - Barbiturates: Samples containing greater than 200 ng/mL secobarbital or other cross-reacting barbiturate compounds are reported as positive. False positive and false negative results are possible. Confirmatory testing required for definitive results. Current Interpretive Data was last reviewed 2022. Benzodiazepines, ur Screen Positive, presumptive (A) CutOff 100ng/mL [facility] Comment: Interpretive Data - Benzodiazepines: Samples containing greater than 100 ng/mL nordiazepam or other cross-reacting compounds are reported as positive. False positive and false negative results are possible. Confirmatory testing required for definitive results. Current Interpretive Data was last reviewed 2022. Cannabinoids, ur Screen Positive, presumptive (A) CutOff 50 ng/mL [facility] Comment: Interpretive Data - Cannabinoids: Samples containing greater than 50 ng/mL delta-9 THC -COOH or other cross- reacting compounds are reported as positive. False positive and false negative results are possible. Confirmatory testing required for definitive results. Current Interpretive Data was last reviewed 2022. Cocaine, ur Not Detected CutOff 150ng/mL [facility] Comment: Interpretive Data - Cocaine: Samples containing greater than 150 ng/mL benzoylecgonine or other cross- reacting compounds are reported as positive. False positive and false negative results are possible. Confirmatory testing required for definitive results. Current Interpretive Data was last reviewed 2022. Fentanyl, Ur Not Detected CutOff 5 ng/mL [facility] Comment: Interpretive Data - Fentanyl: Samples containing greater than 5 ng/mL norfentanyl, fentanyl, or other cross-reacting fentanyl compounds are reported as positive. False positive and false negative results are possible. Confirmatory testing required for definitive results. Current Interpretive Data was last reviewed 2023. Methadone, ur Not Detected CutOff 300ng/mL [facility] Comment: Interpretive Data - Methadone: Samples containing greater than 300 ng/mL d,l-methadone or other cross-reacting compounds are reported as positive. False positive and false negative results are possible. Confirmatory testing required for definitive results. Current Interpretive Data was last reviewed 2022. Opiates, ur Not Detected CutOff 300ng/mL [facility] Comment: Interpretive Data - Opiates: Samples containing greater than 300 ng/mL morphine or other cross-reacting compounds are reported as positive. False positive and false negative results are possible. Confirmatory testing required for definitive results. Current Interpretive Data was last reviewed 2022. Oxycodone, ur Not Detected CutOff 100ng/mL [facility] Comment: Interpretive Data - Oxycodone: Samples containing greater than 100 ng/mL oxycodone or other cross-reacting compounds are reported as positive. False positive and false negative results are possible. Confirmatory testing required for definitive results. Current Interpretive Data was last reviewed 2022. Phencyclidine, ur Not Detected CutOff 25 ng/mL [facility] Comment: Interpretive Data - Phencyclidine: Samples containing greater than 25 ng/mL phencyclidine or other cross-reacting compounds are reported as positive. False positive and false negative results are possible. Confirmatory testing required for definitive results. Current Interpretive Data was last reviewed 2022. Urine Creatinine 124 mg/dL [facility] Comment: Interpretive Data Urine Creatinine: < 10 mg/dL is extremely dilute = or > 10 but < 20 mg/dL is dilute = or > 20 mg/dL is normal Current Interpretive Data was last revised on 2017. Urine 04/20/2024 11:0 0 AM [employer]ILERMAKER PIPE FITTER 04/20/2024 11:04 AM BOILERMAKER PIPE FITTER Narrative AUDREY - 04/20/2024 11:30 AM BOILERMAKER PIPE FITTER Drug of Abuse screening is performed by immunoassay for medical purposes only. This is not to be used for Pain Management purposes. If Detected, confirmation testing will be performed for Amphetamines, Cocaine, Fentanyl, Methadone, Opiates, Oxycodone or Phencyclidine. us Jacquie THOMAS LAB URINE ORDERABLES Final R esult [facility] [address] [facility] Department [place] [address] * (ABNORMAL) Urinalysis reflex to microscopic and culture Urine (04/20/2024 11:00 AM BOILERMAKER PIPE FITTER) Color, ur Yellow Yellow Clarity, ur Clear Clear [facility] Specific gravity, ur 1.018 1.003 - 1.030 [facility] pH, urine 8.0 [facility] Comment: Interpretive Data U rine pH is affected by diet, medications, systemic acid-base disturbances, and renal tubular function. pH may affect urinary stone formation. For example, urine pH below 6.0 may help reduce the tendency for calcium phosphate stones and pH greater than 6.0 may reduce the tendency for uric acid stone formation. Source: [facility] Current Interpretive Data was last revised on 2017 Protein, ur ql Negative Negative [facility] Glucose, ur ql Negative Negative [facility] Ketones, ur Negative Negative [facility] Bilirubin, ur 1+(A) Negative [facility] Blood, ur Negative Negative [facility] Urobilinogen, ur >=8.0(A) <2.0 mg/dL [facility] Nitrite, ur Negative Negative [facility] Leukocyte esterase, ur 1+(A) Negative [facility] UA reflex comment Reflex to microscopic UA will be performed. [facility] Urine 04/20/2024 11:0 0 AM BOILERMAKER PIPE FITTER 04/20/2024 11:04 AM BOILERMAKER PIPE FITTER us Jacquie THOMAS LAB MICROBIOLOGY - GENERAL O RDERABLES Final Result Performing Organization Address [facility] Co de Phone Number AUDREY [address] [address] * (ABNORMAL) Urinalysis, microscopic only (04/20/2024 11:00 AM BOILERMAKER PIPE FITTER) WBC, ur 0-5 0 - 5 /HPF RBC, ur 0-2 0 - 2 /HPF [facility] Epithelial cells, squamous, ur 1-5 0 - 5 /HPF [facility] Mucous, ur Present(A) [facility]UD[facility] Hyaline casts, ur 6-10 0 - 10 /LPF [facility] Culture Reflex Comment Reflex conditions for urine culture (WBC >10) not met. [facility]UD[facility]Y Urine 04/20/2024 11:0 0 AM BOILERMAKER PIPE FITTER 04/20/2024 11:04 AM BOILERMAKER PIPE FITTER Jacquie THOMAS LAB URINE ORDERABLES Final R esult Performing Organization Address [facility] de Phone Number [address] [address] * (ABNORMAL) Protime-INR (04/20/2024 10:50 AM BOILERMAKER PIPE FITTER) PT 19.2(H) 12.0 - 14.6 sec Comment:Ref Range High INR 1.6(H) 0.9 - 1.2 [facility] Comment: Ref Range High Interpretive data Oral anticoagulant therapeutic ranges: Venous thromboembolism prophylaxis or treatment: 2.0-3.0 CARDIOLOGY Standard range: 2.0-3.0 High-intensity range: 2.5-3.5 Refer to indication-specific guidelines for appropriate target ranges for prosthetic heart valve replacement. Current interpretive data was last revised on 2019. Blood 04/20/2024 10:5 0 AM BOILERMAKER PIPE FITTER 04/20/2024 10:52 AM BOILERMAKER PIPE FITTER Jacquie THOMAS LAB BLOOD ORDERABLES Final R esult Performing Organization Address [facility] Co de Phone Number [place] [address] [facility] Department [place] [address] * XR Chest 1 Vw Portable (if patient condition/safety warrant portable) (04/20/2024 10:43 AM BOILERMAKER PIPE FITTER) Anatomical Region Laterality Modality Body, Chest N/A Computed Radiogr aphy 04/20/2024 11:0 7 AM BOILERMAKER PIPE FITTER Narrative 04/20/2024 11:08 AM BOILERMAKER PIPE FITTER EXAM DESCRIPTION: XR CHEST 1 VIEW REASON FOR STUDY: chest pain Pt awoke today with weakness, confusion States started a new med from his liver dr last week TECHNIQUE: Single frontal radiographic view(s) of the chest. COMPARISON: 01/12/2024 FINDINGS: There is cardiomegaly. The pulmonary vasculature and mediastinum are grossly stable. There is small partially loculated left pleural effusion, mildly improved in comparison to the prior study. There are mild patchy left basilar airspace opacities. There is no definite evidence of a pneumothorax. The osseous structures are acutely grossly stable. IMPRESSION: Small partially loculated left pleural effusion, mildly improved in comparison to the prior study. Mild patchy left basilar airspace opacities, which is likely related to subsegmental atelectasis/scarring and less likely developing airspace disease. THIS IS AN ELECTRONICALLY VERIFIED FINAL REPORT 04/20/2024 11:08 AM - Electronically signed by Lesli Louie D.O. PS T: Report ID: [id number] Reading Location: [place] [address] Procedure Note Lesli Louie, - 04/20/2024 EXAM DESCRIPTION: XR CHEST 1 VIEW REASON FOR STUDY: chest pain Pt awoke today with weakness, confusion States started a new med from his liver dr last week TECHNIQUE: Single frontal radiographic view(s) of the chest. COMPARISON: 01/12/2024 FINDINGS: There is cardiomegaly. The pulmonary vasculature andmediastinum are grossly stable. There is small partially loculated left pleuraleffusion, mildly improved in comparison to the prior study. There are mild patchyleft basilar airspace opacities. There is no definite evidence of apneumothorax. The osseous structures are acutely grossly stable. IMPRESSION: Small partially loculated left pleural effusion, mildly improved in comparison to the prior study. Mild patchy left basilar airspace opacities, which is likely related to subsegmental atelectasis/scarring and less likely developing airspacedisease. THIS IS AN ELECTRONICALLY VERIFIED FINAL REPORT 04/20/2024 11:08 AM - Electronically signed by Lesli Louie D.O. PS T: Report ID: [id number] Reading Location: [id number] us Jacquie THOMAS IMG XR PROCEDURES Final Resu lt * (ABNORMAL) Troponin T high-sensitivity series (baseline, 2hr, 4hr, 6hr) (04/20/2024 10:27 AM BOILERMAKER PIPE FITTER) Trop T hs 27(H) <=22 ng/L Comment: Interpretive Data For further hscTnT resources including the diagnostic algorithm and an aid in interpretation, copy and paste this link: https://nrl.testcatalog.org/show/hsTrop Current Interpretive Data last revised 2019. Blood 04/20/2024 10:2 7 AM BOILERMAKER PIPE FITTER 04/20/2024 10:34 AM BOILERMAKER PIPE FITTER us Jacquie THOMAS LAB BLOOD ORDERABLES Final R esult [id number] [address] [facility] Department of Laboratories [place], [place] [id number] * eGFR (04/20/2024 10:27 AM BOILERMAKER PIPE FITTER) eGFR >90 >=60 mL/min/1. 73 m2 Comment: Interpretive Data Reference Interval Normal >/= 90 mL/min/1.73m2 Mildly decreased* 60 - 89 mL/min/1.73m2 Mildly to moderately decreased 45 - 59 mL/min/1.73m2 Moderately to severely decreased 30 - 44 mL/min/1.73m2 Severely decreased 15 - 29 mL/min/1.73m2 Kidney Failure < 15 mL/min/1.73m2 *Relative to young adult level Estimated glomerular filtration rate is determined by the 2020 CKD-EPI equation recommended by the National Kid[employer] (A Unifying Approach to GFR Estimation: Recommendations of the NKF-ASK Task Force on Reassessing the Inclusion of Race in Diagnosing Kidney Disease, JASN 202). The CKD-EPI equation should not be used for patients with unstable renal function and has not been validated in children and those over 70. Current interpretive data was last reviewed 2020. Blood 04/20/2024 10:2 7 AM BOILERMAKER PIPE FITTER 04/20/2024 10:34 AM BOILERMAKER PIPE FITTER us Jacquie THOMAS LAB BLOOD ORDERABLES Final R esult [facility] [address] [facility] Department [place] [address] * Differential, auto (04/20/2024 10:27 AM BOILERMAKER PIPE FITTER) Neutrophil abs 2.4 1.5 - 6.5 K/cumm Imm gran abs 0.0 0.0 - 0.1 K/cumm [facility] Lymphocyte abs 0.8 0.8 - 3.3 K/cumm [facility] Monocyte abs 0.4 0.2 - 0.8 K/cumm [facility] Eosinophil abs 0.2 0.0 - 0.5 K/cumm [facility] Basophil abs 0.1 0.0 - 0.1 K/cumm [facility] Neutrophil pct 61.0 % [facility] Comment: Interpretive Data Percent cell count reference ranges are not reported, since discordance with absolute values may lead to misinterpretation of CBC data. Current Interpretive Data was last revised on 2017. Imm gran pct 0.5 % [facility] Comment: Interpretive Data Percent cell count reference ranges are not reported, since discordance with absolute values may lead to misinterpretation of CBC data. Current Interpretive Data was last revised on 2017. Lymphocyte pct 19.8 % [facility] Comment: Interpretive Data Percent cell count reference ranges are not reported, since discordance with absolute values may lead to misinterpretation of CBC data. Current Interpretive Data was last revised on 2017. Monocyte pct 11.3 % [facility] Comment: Interpretive Data Percent cell count reference ranges are not reported, since discordance with absolute values may lead to misinterpretation of CBC data. Current Interpretive Data was last revised on 2017. Eosinophil pct 4.6 % [facility] Comment: Interpretive Data Percent cell count reference ranges are not reported, since discordance with absolute values may lead to misinterpretation of CBC data. Current Interpretive Data was last revised on 2017. Basophil pct 2.8 % [facility] Comment: Interpretive Data Percent cell count reference ranges are not reported, since discordance with absolute values may lead to misinterpretation of CBC data. Current Interpretive Data was last revised on 2017. Blood 04/20/2024 10:2 7 AM BOILERMAKER PIPE FITTER 04/20/2024 10:34 AM BOILERMAKER PIPE FITTER us Jacquie THOMAS LAB BLOOD ORDERABLES Final R esult [facility] [address] [facility] Department [place] [address] * (ABNORMAL) Pro B-type natriuretic peptide (04/20/2024 10:27 AM BOILERMAKER PIPE FITTER) NT-proBNP 413(H) <=300 pg/mL Comment: Interpretive Comments: A. Dyspnea in Acute Care Setting All Ages: < 300 pg/ml, acute heart failure unlikely. < 50 yrs: 300 - 450 pg/ml, further investigation warranted. > 450 pg/ml, acute heart failure likely. 50 - 74 yrs: 300 - 900 pg/ml, further investigation warranted. > 900 pg/ml, acute heart failure likely . > or = 75 yrs: 450 - 1800 pg/ml, further investigation warranted. > 1800 pg/ml, acute heart failure likely. B. Non-acute Setting < 75 yrs < 125 pg/ml, rules out heart failure. > or = 125 pg/ml, further investigation warranted. > or = 75 yrs < 450 pg/ml, rules out heart failure. > or = 450 pg/ml, further investigation warranted. - Knowledge of each individual patient's NT-proBNP range may be more useful than using similar cut-points for every patient. Please note that marked elevations in NT-proBNP levels may be observed in state other than Left Ventricular Congestive Failure, including: acute coronary syndromes, right heart strain/failure (including pulmonary embolism and cor pulmonale), critical illness, renal failure, as well as advanced age. - References: 1. Carolina MALAGON et.al. Eur Heart J. 2006:27:330-337. 2. Nga RW, Kaelyn JORGE. J. AM Ruddy Cardiol: Cardiovasc Imag. 2009;2: 216- 225. Interpretive Data Last Revised Date: 2017. Blood 04/20/2024 10:2 7 AM BOILERMAKER PIPE FITTER 04/20/2024 10:34 AM BOILERMAKER PIPE FITTER Jacquie THOMAS LAB BLOOD ORDERABLES Final R esult Performing Organization Address City/[facility] Co de Phone Number [address] [address] * Thyroid Function [place] (04/20/2024 10:27 AM BOILERMAKER PIPE FITTER) [facility] TSH 2.43 0.30 - 4.20 mcIUnit/mL Blood 04/20/2024 10:2 7 AM BOILERMAKER PIPE FITTER 04/20/2024 10:34 AM BOILERMAKER PIPE FITTER Jacquie THOMAS LAB BLOOD ORDERABLES Final R esult Performing Organization Address City/[facility] Co de Phone Number [address] [address] * (ABNORMAL) CBC with auto differential (04/20/2024 10:27 AM BOILERMAKER PIPE FITTER) [facility] WBC 3.9 3.8 - 9.9 K/cumm Hgb 11.0(L) 13.0 - 17.5 g/dL [facility] Hct 32.4(L) 38.9 - 50.3 % [facility] Plt 68(L) 150 - 400 K/cumm [facility] MPV 10.5 9.1 - 12.3 fL [facility] RBC 3.34(L) 4.30 - 5.80 M/cumm [facility] MCV 97.0(H) 81.3 - 96.4 fL [facility] MCH 32.9 27.1 - 33.3 pg [facility] MCHC 34.0 32.3 - 35.7 g/dL [facility] RDW CV 16.0(H) 11.1 - 14.9 % [facility] RDW SD 57.1(H) 35.7 - 48.1 fL [facility] NRBC abs 0.00 0.00 - 0.01 K/cumm [facility] Blood 04/20/2024 10:2 7 AM BOILERMAKER PIPE FITTER 04/20/2024 10:34 AM BOILERMAKER PIPE FITTER Jacquie THOMAS LAB BLOOD ORDERABLES Final R esult Performing Organization Address [facility] de Phone Number [address] [place] [address] * Magnesium (04/20/2024 10:27 AM BOILERMAKER PIPE FITTER) Magnesium 1.5 1.4 - 2.5 mg/dL Blood 04/20/2024 10:2 7 AM BOILERMAKER PIPE FITTER 04/20/2024 10:34 AM BOILERMAKER PIPE FITTER Jacquie THOMAS LAB BLOOD ORDERABLES Final R esult Performing Organization Address [facility] Co de Phone Number [address] [place] [address] * Lipase (04/20/2024 10:27 AM BOILERMAKER PIPE FITTER) Lipase 33 10 - 99 Units/L Blood 04/20/2024 10:2 7 AM BOILERMAKER PIPE FITTER 04/20/2024 10:34 AM BOILERMAKER PIPE FITTER Jacquie THOMAS LAB BLOOD ORDERABLES Final R esult Performing Organization Address City/[facility] Co de Phone Number [address] [place] [address] * Ammonia (04/20/2024 10:27 AM BOILERMAKER PIPE FITTER) Pathologist [facility] Ammonia 39 <=50 mcmol/L Comment: Please note on 06/26/2023 the unit of measure changed from mcg/dL to mcmol/L. Current Interpretive Data was last revised on 2023. Blood 04/20/2024 10:2 7 AM BOILERMAKER PIPE FITTER 04/20/2024 10:31 AM BOILERMAKER PIPE FITTER Jacquie THOMAS LAB BLOOD ORDERABLES Final R esult Performing Organization Address [facility] Co de Phone Number [address] [employer] [place] [address] * (ABNORMAL) Ethanol (04/20/2024 10:27 AM BOILERMAKER PIPE FITTER) [facility] Ethanol 85(H) <=10 mg/dL Comment: Interpretive Data Legal limit of intoxication > or = 80 mg/dL Levels > or = 400 mg/dL are potentially TOXIC. Current interpretive data was last revised on 2018. Blood 04/20/2024 10:2 7 AM BOILERMAKER PIPE FITTER 04/20/2024 10:34 AM BOILERMAKER PIPE FITTER Jacquie THOMAS LAB BLOOD ORDERABLES Final [facility] Performing Organization Address [facility] Co de Phone Number [address] [place] [address] * (ABNORMAL) Comprehensive metabolic panel (04/20/2024 10:27 AM BOILERMAKER PIPE FITTER) [facility] Sodium 140 135 - 145 mmol/L Potassium, pl 3.5 3.3 - 4.9 mmol/L [facility] Chloride 96(L) 97 - 110 mmol/L [facility] CO2 29 22 - 32 mmol/L [facility] Anion gap 15 2 - 15 mmol/L [facility] BUN 6 6 - 25 mg/dL [facility] Creatinine 0.56(L) 0.80 - 1.30 mg/dL [facility] Glucose 104 70 - 199 mg/dL [facility] Comment: Interpretive Data Fasting glucose >/= 126 mg/dl is diagnostic for diabetes. Fasting is defined as no caloric intake for at least 8 hours. Fasting glucose between 100 mg/dl to 125 mg/dl is diagnostic of prediabetes. In a patient with classic symptoms of hyperglycemia or hyperglycemic crisis, a random glucose >/= 200 mg/dl is diagnostic for diabetes. In the absence of unequivocal hyperglycemia, results should be confirmed by repeat testing. The classification and Diagnosis of Diabetes Diabetes Care 2021; 46: S19-S40. Current interpretive data was last revised 2022. Calcium 9.2 8.5 - 10.3 mg/dL [facility] Bilirubin, total 8.3(H) 0.1 - 1.2 mg/dL [facility] Protein, pl 7.8 6.5 - 8.5 g/dL [facility] Albumin 4.0 3.5 - 5.0 g/dL [facility] Alk phos 132(H) 40 - 130 Units/L [facility] ALT 61(H) 7 - 55 Units/L [facility] AST 192(H) 10 - 50 Units/L [facility] Blood 04/20/2024 10:2 7 AM BOILERMAKER PIPE FITTER 04/20/2024 10:34 AM BOILERMAKER PIPE FITTER us Jacquie THOMAS LAB BLOOD ORDERABLES Final R esult AUDREY LESTER [address] [facility] Department [place] [address] * ECG 12 lead (04/20/2024 10:19 AM BOILERMAKER PIPE FITTER) Pathologist [facility] Ventricular Rate EKG/Min 75 BPM [facility] Atrial Rate 75 BPM [facility] DE-Interval (MSEC) 196 ms [facility] QRS-Interval (MSEC) 86 ms [facility] QT-Interval (MSEC) 450 ms [facility] QTc 502 ms [facility] P [employer] 41 degrees [facility] R [employer] -11 degrees [facility] T [employer] -24 degrees [facility] Diagnosis Normal sinus rhythm Nonspecific T wave abnormality Abnormal ECG When compared with ECG of 13-JAN-2024 08:46, Premature atrial complexes are no longer Present Nonspecific T wave abnormality now evident in Anterolateral leads Confirmed by SULTAN HERNANDEZ M.D. ([id number]) on 04/20/2024 2:47:34 PM [facility] 04/20/2024 10:1 9 AM BOILERMAKER PIPE FITTER 04/20/2024 2:47 PM BOILERMAKER PIPE FITTER us Jacquie THOMAS ECG ORDERABLES Final Result [facility] * Immature platelet fraction (04/16/2024 10:09 AM BOILERMAKER PIPE FITTER) IPF 5.9 1.6 - 10.1 % Blood 04/16/2024 10:0 9 AM BOILERMAKER PIPE FITTER 04/16/2024 10:39 AM BOILERMAKER PIPE FITTER us Celso Hinton MD LAB BLOOD ORDERABLES Final Res ult Performing Organization Address City/[facility]/ZIP Co de Phone Number [facility] Department [place] [address] * eGFR (04/16/2024 10:09 AM BOILERMAKER PIPE FITTER) eGFR >90 >=60 mL/min/1. 73 m2 Comment: Interpretive Data Reference Interval Normal >/= 90 mL/min/1.73m2 Mildly decreased* 60 - 89 mL/min/1.73m2 Mildly to moderately decreased 45 - 59 mL/min/1.73m2 Moderately to severely decreased 30 - 44 mL/min/1.73m2 Severely decreased 15 - 29 mL/min/1.73m2 Kidney Failure < 15 mL/min/1.73m2 *Relative to young adult level Estimated glomerular filtration rate is determined by the 2020 CKD-EPI equation recommended by the National Kidney Foundation (A Unifying Approach to GFR Estimation: Recommendations of the NKF-ASK Task Force on Reassessing the Inclusion of Race in Diagnosing Kidney Disease, JASN 2020). The CKD-EPI equation should not be used for patients with unstable renal function and has not been validated in children and those over 70. Current interpretive data was last reviewed 2020. Blood 04/16/2024 10:0 9 AM BOILERMAKER PIPE FITTER 04/16/2024 10:34 AM BOILERMAKER PIPE FITTER us Celso Hinton MD LAB BLOOD ORDERABLES Final Res ult [facility] Department [place] [address] * (ABNORMAL) Differential, auto (04/16/2024 10:09 AM BOILERMAKER PIPE FITTER) Neutrophil abs 1.8 1.5 - 6.5 K/cumm Imm gran abs 0.0 0.0 - 0.1 K/cumm [facility] Lymphocyte abs 0.7(L) 0.8 - 3.3 K/cumm [facility] Monocyte abs 0.5 0.2 - 0.8 K/cumm [facility] Eosinophil abs 0.2 0.0 - 0.5 K/cumm [facility] Basophil abs 0.1 0.0 - 0.1 K/cumm [facility] Neutrophil pct 55.0 % [facility] Comment: Interpretive Data Percent cell count reference ranges are not reported, since discordance with absolute values may lead to misinterpretation of CBC data. Current Interpretive Data was last revised on 2017. Imm gran pct 0.6 % [facility] Comment: Interpretive Data Percent cell count reference ranges are not reported, since discordance with absolute values may lead to misinterpretation of CBC data. Current Interpretive Data was last revised on 2017. Lymphocyte pct 21.3 % [facility] Comment: Interpretive Data Percent cell count reference ranges are not reported, since discordance with absolute values may lead to misinterpretation of CBC data. Current Interpretive Data was last revised on 2017. Monocyte pct 15.1 % [facility] Comment: Interpretive Data Percent cell count reference ranges are not reported, since discordance with absolute values may lead to misinterpretation of CBC data. Current Interpretive Data was last revised on 2017. Eosinophil pct 4.9 % [facility] Comment: Interpretive Data Percent cell count reference ranges are not reported, since discordance with absolute values may lead to misinterpretation of CBC data. Current Interpretive Data was last revised on 2017. Basophil pct 3.1 % [facility] Comment: Interpretive Data Percent cell count reference ranges are not reported, since discordance with absolute values may lead to misinterpretation of CBC data. Current Interpretive Data was last revised on 2017. Blood 04/16/2024 10:0 9 AM BOILERMAKER PIPE FITTER 04/16/2024 10:29 AM BOILERMAKER PIPE FITTER us Celso Hinton MD LAB BLOOD ORDERABLES Final Res ult [facility] Department [place] [address] * (ABNORMAL) CBC with auto differential (04/16/2024 10:09 AM BOILERMAKER PIPE FITTER) WBC 3.2(L) 3.8 - 9.9 K/cumm Hgb 9.7(L) 13.0 - 17.5 g/dL [facility] Hct 27.9(L) 38.9 - 50.3 % [facility] Plt 41(C) 150 - 400 K/cumm [facility] Comment:No clot detected in sample. paged [id number]. Critical result called to and read back by RICKY HALL RN on 04 16 2024 at 1140 to Fernie Thomason. MPV 11.2 9.1 - 12.3 fL [facility] RBC 2.94(L) 4.30 - 5.80 M/cumm [facility] MCV 94.9 81.3 - 96.4 fL [facility] MCH 33.0 27.1 - 33.3 pg [facility] MCHC 34.8 32.3 - 35.7 g/dL [facility] RDW CV 15.4(H) 11.1 - 14.9 % [facility] RDW SD 53.6(H) 35.7 - 48.1 fL [facility] NRBC abs 0.00 0.00 - 0.01 K/cumm [facility] Blood 04/16/2024 10:0 9 AM BOILERMAKER PIPE FITTER 04/16/2024 10:29 AM BOILERMAKER PIPE FITTER Celso Hinton MD LAB BLOOD ORDERABLES Final Res ult Performing Organization Address [facility] de Phone Number AUDREY [facility] Department [place] [address] * [id number], Tumor Marker (04/16/2024 10:09 AM BOILERMAKER PIPE FITTER) Pathologist [facility] alpha Fetoprotein 4.3 <=8.3 ng/mL Comment: Interpretive Data The Greg AFP assay procedure was used. Results from different manufacturers or methods may not be comparable. Serial testing should be performed using the same method. 0-1 month. AFP concentrations may reach or exceed 100,000 ng/mL after depending on gestational age and weight. 1-3 months 50 1000 ng/ml 3-6 months 10 500 ng/ml 6-12 months 3.0 100 ng/ml >1 year 0.0 8.3 ng/ml References Rico Y. et al. J. Ped Surg 1978;13:155-156 Kayleigh Ocasio. et al. Clin Chem Lab Med 2018;57:783-797 Doreen V. et al. Clin Chem 2014;[id number]. Current interpretive data was last revised 2021. Blood 04/16/2024 10:0 9 AM BOILERMAKER PIPE FITTER 04/16/2024 10:29 AM BOILERMAKER PIPE FITTER Celso Hinton MD LAB BLOOD ORDERABLES Final Res ult Performing Organization Address [facility] de Phone Number [facility] [place] [address] * (ABNORMAL) Comprehensive metabolic panel (04/16/2024 10:09 AM BOILERMAKER PIPE FITTER) Pathologist [facility] Sodium 137 135 - 145 mmol/L Potassium, pl 3.9 3.3 - 4.9 mmol/L [facility] Chloride 95(L) 97 - 110 mmol/L [facility] CO2 30 22 - 32 mmol/L [facility] Anion gap 12 2 - 15 mmol/L [facility] BUN 5(L) 6 - 25 mg/dL [facility] Creatinine 0.59(L) 0.80 - 1.30 mg/dL [facility] Glucose 105 70 - 199 mg/dL [facility] Comment: Interpretive Data Fasting glucose >/= 126 mg/dl is diagnostic for diabetes. Fasting is defined as no caloric intake for at least 8 hours. Fasting glucose between 100 mg/dl to 125 mg/dl is diagnostic of prediabetes. In a patient with classic symptoms of hyperglycemia or hyperglycemic crisis, a random glucose >/= 200 mg/dl is diagnostic for diabetes. In the absence of unequivocal hyperglycemia, results should be confirmed by repeat testing. The classification and Diagnosis of Diabetes Diabetes Care 202; 46: S19-S40. Current interpretive data was last revised 2022. Calcium 9.2 8.5 - 10.3 mg/dL [facility] Bilirubin, total 8.2(H) 0.1 - 1.2 mg/dL [facility] Protein, pl 7.6 6.5 - 8.5 g/dL [facility] Albumin 3.9 3.5 - 5.0 g/dL [facility] Alk phos 152(H) 40 - 130 Units/L [facility] ALT 61(H) 7 - 55 Units/L [facility] AST 182(H) 10 - 50 Units/L [facility] Blood 04/16/2024 10:0 9 AM BOILERMAKER PIPE FITTER 04/16/2024 10:29 AM BOILERMAKER PIPE FITTER us Celso Hinton MD LAB BLOOD ORDERABLES Final Res ult [facility] Department [place] [address] * Hepatitis panel, acute Blood (01/15/2024 5:02 AM BOILERMAKER PIPE FITTER) Hep A IgM Nonreactive Nonreactive Comment: Interpretive Data: If Hep A IgM Ab is reported as Equivocal, a new sample should be drawn in two weeks for testing. Current interpretive data was last revised on 19. Hep B core IgM Nonreactive Nonreactive [facility] Comment: Interpretive Data If HepB Core IgM Ab is reported as Equivocal, a new sample should be drawn in two weeks for testing. Current interpretive data was last revised on 19. Hep C Ab Nonreactive Nonreactive [facility] Comment: Antibodies to HCV not detected. Does NOT exclude the possibility of recent exposure to HCV. Current interpretive data was last revised on 21 Interpretive Data Nonreactive: Antibodies to HCV not detected. Does NOT exclude the possibility of recent exposure to HCV. Equivocal: Equivocal for HCV antibodies. Supplemental molecular testing will be automatically performed to determine infection status in accordance with current CDC screening recommendations. Reactive: Positive for HCV antibodies. This may represent current or past HCV infection. Supplemental molecular testing will be automatically performed to determine current infection status in accordance with current CDC screening recommendations. Interpretive data was last revised on 2019. HepBsAg Nonreactive Nonreactive [facility] Blood 01/15/2024 5:02 AM BOILERMAKER PIPE FITTER 01/15/2024 8:23 AM BOILERMAKER PIPE FITTER Luis Aiken MD LAB MICROBIOLOGY - G ENERAL ORDERABLES Final [facility] [address] [facility] Department [place] [address] from Last 3 Months or Most Recently Relevant to Health Maintenance Insurance [facility] Advance Directives For more information, please contact: [phone] Documents on File Type Date Recorded Patient [employer] Repairer Expl anation ADVANCE DIRECTIVE 12/20/2023 3:07 PM Power of Manager [employer] * Full Code (Latest Code Status on File) Date Activated Date Inactivated Comments 01/12/2024 10:03 PM 01/15/2024 6:06 PM * Full Code Date Activated Date Inactivated Comments 12/19/2023 2:41 PM 12/31/2023 6:14 PM * Full Code Date Activated Date Inactivated Comments 07/25/2023 1:42 AM 07/27/2023 4:38 PM Care Teams Library Director Relationship Specialty Start Date End Date Mine Ventura NP [address] [place] [address] PCP - General Nurse Practitioner 12/19/23 Herman Bhatia MD [address] [place] [id number] Consulting Physician Pulmonary Disease 12/31/23 Zhang Simental MD [address] [place] [address] [place] [address] Consulting Physician Nephrology 01/15/24
--- OUTSIDE RECORDS SUMMARY | 2024-06-12 11:33 | XMS_ITS | Clinical Summary ---
Author Organization 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 Gender Identity Not on file Sexual Orientation Not on file Plan of Treatment Health Maintenance Due Date Last Done Comments Hepatitis C Virus (HCV) Screening 1973 TdaP Immunization 1973 Hepatitis B Immunization (1 of 3 - 19+ 3-dose series) 1992 Colonoscopy 2018 Colorectal Cancer Screening 2018 Cologuard 06/01/2023 Immunochemical Fecal Occult Blood 06/01/2023 Pneumococcal Immunization (5 0+ years) (1 of 1 - PCV) 06/01/2023 Zoster Immunization (1 of 2) 06/01/2023 Influenza Immunization (#1) 2023 SARS-COV-2 Immunization (3 - 2023- season) 2023 06/20/2020, 05/27/2020 Respiratory Syncytial Virus (RSV) Immunization (Adult) (1 - 1-dose 75+ series) 2048 Meningococcal Immunization (ACWY) Aged Out No longer eligible b ased on patient's age to complete this topic Pneumococcal Immunization Combined Aged Out No longer eligible b ased on patient's age to complete this topic Rotavirus Immunization Aged Out No lo nger eligible based on patient's age to complete this topic
--- OUTSIDE RECORDS SUMMARY | 2024-06-12 11:33 | XMS_ITS | Clinical Summary ---
Author Organization [facility] Office Center Address [address] [place] [address] Care Team Providers Care Machine Pack Assembler Name Role Phone Mine Ventura NP Primary Care Provider Herman Bhatia MD Unavailable Zhang Simental MD Unavailable [phone] Allergies No known active allergies Medications senna-docusate [...] needed for muscle spasms 30 tablet 12/31/19 Active Additional Information Patient not taking.Reported on 04/16/2024 lactulose solution 10 gram/15mL Take 30 mL (20 g total) by mouth every 8 (eight) hours 2700 mL 12/31/19 Active Additional Information Patient not taking.Reported on 05/01/2024 gabapentin (NEURONTIN) 300 mg capsule Take 1 capsule (300 mg total) by mouth 3 (three) times a day Pt not taking as prescribed. 90 capsule 01/15/20 Active spironolactone (ALDACTONE) 25 mg tablet Take 1 tablet (25 mg total) by mouth daily 30 tablet 1 01/16/20 Active furosemide (LASIX) 40 mg tablet Take 1 tablet (40 mg total) by mouth 2 (two) times a day 60 tablet 1 01/15/20 Active umeclidinium-nava anteroL (ANORO ELLIPTA) 62.5-25 mcg/actuation [...] a day with meals 60 tablet 04/29/19 026 Active Active Problems Problem Noted Date [...] p rocess of thoracic vertebra 05/25/2021 07/25/2023 Encounters Date Type Department Care Team Description 05/26/19 Telephone [facility] Gastroenterology [facility] [address] [place] [address] [place] [phone] Ricky Mast LPN 05/14/19 Results Follow-Up [facility] Gastroenterology at [address] [place] [phone] Juan Cowan MD 05/13/19 7:30 AM CDT - 05/13/19 7:45 AM CDT Surgery [facility] [address] [place] [address] Juan Cowan MD ESOPHAGOGASTRODUODENOSCOPY BIOPSY 05/13/19 7:16 AM CDT Anesthesia Event [facility] [address] [place] [address] Rocio Alatorre MD 05/13/19 6:28 AM CDT - 05/13/19 8:26 AM CDT Hospital Encounter [facility] GI Lab [address] [place] [address] Juan Cowan MD Alcoholic cirrhosis of liver without ascites (HCC) Discharge Disposition: Discharge to home or self care 05/09/19 Telephone [facility] Gastroenterology [address] [place] [address] [place] [phone] Ricky Mast LPN 03/21/20 25 Orders Only [facility] Gastroenterology [address] [place] [address] [place] [address] Ricky Mast LPN 05/09/19 25 Documentation [facility] Gastroenterology [address] [place] [address] [place] [address] Ricky Mast LPN 04/29/19 25 Telephone [facility] Gastroenterology [facility] [address] [place] [address] [place] [address] Ricky Mast LPN 04/29/19 25 Orders Only [facility] Gastroenterology [address] [place] [address] [place] [address] [place] [address] Ricky Mast LPN Portal hypertension (HCC) (Primary Dx) 04/28/19 25 Orders Only [facility] Gastroenterology at [address] [phone] Juan Cowan MD Alcoholic cirrhosis of liver without ascites (HCC) (Primary Dx) 04/28/19 25 Telephone [facility] Gastroenterology [address] [place] [address] [place] [address] [place] [address] Kenzie Mondragon Schedule EGD 04/22/19 25 Telephone [facility] Gastroenterology [address] [place] [address] [place] [address] [place] [address] [employer] CNA reschedule scope 04/22/19 25 Telephone [facility] Gastroenterology [address] [place] [address] [place] [address] [place] [address] Ricky Mast LPN 04/21/19 25 10:59 AM COMMUNITY DEVELOPMENT PLANNER - 04/21/19 25 2:[address] [facility] Emergency [address] [address] Zhang Fierro MD Altered mental status, unspecified altered mental status type (Primary Dx); Alcoholic cirrhosis, unspecified whether ascites present (HCC) Discharge Disposition: Discharge to home or self care 04/16/19 10:45 AM COMMUNITY DEVELOPMENT PLANNER Lab [facility] [address] [place] [phone] Alcoholic cirrhosis of liver without ascites (HCC) 04/16/19 8:40 AM COMMUNITY DEVELOPMENT PLANNER Office Visit [facility] Gastroenterology [address] [place] [address] 12th [place] [address] [place] [address] Celso Hinton MD Alcoholic cirrhosis of liver without ascites (HCC) (Primary Dx) 04/16/19 Results Follow-Up [facility] Gasteroenterology [address] [place] [address] 12th [place] [address] [place] [address] Celso Hinton MD Alcoholic cirrhosis of liver without ascites (HCC) (Primary Dx) 04/16/19 Documentation [facility] Gastroenterology [address] [place] [address] 12th [place] [address] [place] [address] Ricky Mast LPN from Last 3 Months Surgical History Surgery Date Site/Laterality Comments US GUIDED THORACENTESIS 12/19/2023 N/A CT CHEST TUBE INSERTION LEFT 12/24/2023 N/A US ABDOMEN COMPLETE W LIVER DOPPLER (C) 01/13/2024 Right COLOSTOMY 02/18/2022 - 02/17/2023 Medical History Medical History Date Comments Peripheral neuropathy Alcoholic (HCC) History of transfusion Rib fracture [address] CHF (congestive heart failure) (HCC) Transaminitis Cirrhosis (HCC) Bilateral lower extremity edema Pleural effusion Hyponatremia Social History Tobacco Use Types Packs/Day Years Used Date Smoking Tobacco: Former Cigarettes Smokeless Tobacco: Never [facility] Utilities Answer Date Recorded In the past 12 months has [employer], gas, oil, or water [employer] threatened to shut off services in your [...] often do you attend chur ch or religion services? Never 01/14/2024 Do you belong to any clubs o r organizations such as zoroastrian groups, unions, fraternal or athletic groups, or [...] any time in the past 12 m [facility], were you homeless or living in a alf (including now)? No 01/14/2024 Personal Safety Answer Date Recorded Have you ever been in or are you currently in a harmful physical or emotional relationship or is someone making you feel afraid or unsafe? Denies 05/12/2024 Sex and Gender Information Value Date Recorded Sex Assigned at Not on file Legal Sex Male 6:22 PM COMMUNITY DEVELOPMENT PLANNER Gender Identity Not on file Sexual Orientation Not on file Obstetrics History Last Filed Vital Signs Vital Sign Reading [...] cm (6' 2 ) 04/16/2024 7:59 AM COMMUNITY DEVELOPMENT PLANNER Body Mass Index 30.17 04/16/2024 7:59 AM COMMUNITY DEVELOPMENT PLANNER Plan of Treatment Health Maintenance Due Date Last Done Comments Colon Cancer Screening-Colonoscopy 1975 Prostate Cancer Screening-PSA 1975 Regular Well Visit/Exam 18-64 06/01/1991 Pneumococcal vaccine <65 (1 of 2 - PCV) 1992 Zoster Vaccine (1 of 2) 06/01/2023 Covid-19 Vaccine (3 - 2023-2 5 season) 2023 06/20/2020, 05/27/2020 Influenza Vaccine (Season Ended) 2024 Depression Screening 01/11/2025 01/12/2024, 01/12/20 24 DTaP/Tdap/Td Vaccine (2 - Td or Tdap) 04/30/2032 04/30/2022 Hepatitis C Screening Completed 01/15/2024 , 12/27/2023, 12/20/2023, Additional history exists Procedures Procedure Name Priority Date/Time Associated Diagnosis Comments SURGICAL PATHOLOGY Routine 05/12/2024 7:28 AM CDT Alcoholic cirrhosis of liver without ascites (HCC) ESOPHAGOGASTRODUODENOSCOPY BIOPSY 05/12/2024 7:16 AM CDT Alcoholic cirrhosis of liver without ascites (HCC) EGD 05/12/2024 6:55 AM CDT TROPONIN T HIGH-SENSITIVITY 2-HOUR Timed 04/20/2024 12:25 PM COMMUNITY DEVEL[employer]NER CT CHEST ABDOMEN PELVIS W CONTRAST ED 04/20/2024 12:13 PM COMMUNITY DEVEL[employer]NER CT HEAD WO CONTRAST ED 04/20/2024 12:11 PM COMMUNITY DEVELOPMENT PLANNER URINALYSIS, MICROSCOPIC ONLY STAT 04/2024 11:00 AM COMMUNITY DEVELOPMENT PLANNER DRUGS OF ABUSE SCREEN, URINE WITH REFLEX CONFIRMATION STAT 04/20/2024 11:00 AM COMMUNITY DEVELOPMENT PLANNER URINALYSIS AND REFLEX TO MICROSCOPIC AND CULTURE STAT 04/20/2024 11:00 AM COMMUNITY DEVELOPMENT PLANNER PROTIME-INR STAT 04/20/2024 10:50 AM COMMUNITY DEVELOPMENT PLANNER XR CHEST 1 VIEW ED 04/20/2024 10:43 AM COMMUNITY DEVELOPMENT PLANNER EGFR STAT 04/20/2024 10:27 AM COMMUNITY DEVELOPMENT PLANNER ETHANOL STAT 04/20/2024 10:27 AM COMMUNITY DEVELOPMENT PLANNER DIFFERENTIAL AUTO STAT 04/20/2024 10:27 AM COMMUNITY DEVELOPMENT PLANNER PRO B-TYPE NATRIURETIC PEPTIDE STAT 0 04/20/2024 10:27 AM COMMUNITY DEVELOPMENT PLANNER AMMONIA STAT 04/20/2024 10:27 AM COMMUNITY DEVELOPMENT PLANNER CBC WITH AUTO DIFFERENTIAL STAT 04/20 10:27 AM COMMUNITY DEVELOPMENT PLANNER COMPREHENSIVE METABOLIC PANEL STAT 10:27 AM COMMUNITY DEVELOPMENT PLANNER LIPASE STAT 04/20/2024 10:27 AM COMMUNITY DEVELOPMENT PLANNER MAGNESIUM STAT 04/20/2024 10:27 AM COMMUNITY DEVELOPMENT PLANNER THYROID FUNCTION CASCADE STAT 025 10:27 AM COMMUNITY DEVELOPMENT PLANNER TROPONIN T HIGH-SENSITIVITY SERIES (BASELINE, 2HR, 4HR, 6HR) STAT 04/20/2024 10:27 AM COMMUNITY DEVELOPMENT PLANNER ECG 12-LEAD STAT 04/20/2024 10:19 AM COMMUNITY DEVELOPMENT PLANNER IMMATURE PLATELET FRACTION Routine 04/16 10:09 AM COMMUNITY DEVELOPMENT PLANNER Alcoholic cirrhosis of liver without ascites (HCC) EGFR Routine 04/16/2024 10:09 AM COMMUNITY DEVELOPMENT PLANNER Alcoholic cirrhosis of liver without ascites (HCC) DIFFERENTIAL AUTO Routine 04/16/2024 10:09 AM COMMUNITY DEVELOPMENT PLANNER Alcoholic cirrhosis of liver without ascites (HCC) CBC WITH AUTO DIFFERENTIAL Routine 04/16 10:09 AM COMMUNITY DEVELOPMENT PLANNER Alcoholic cirrhosis of liver without ascites (HCC) COMPREHENSIVE METABOLIC PANEL Routine 10:09 AM COMMUNITY DEVELOPMENT PLANNER Alcoholic cirrhosis of liver without ascites (HCC) [id number], TUMOR MARKER Routine 04/16/2024 10:09 AM COMMUNITY DEVELOPMENT PLANNER Alcoholic cirrhosis of liver without ascites (HCC) HEPATITIS PANEL, ACUTE Routine 5:02 AM COMMUNITY DEVELOPMENT PLANNER from Last 3 Months or Most Recently Relevant to Health Maintenance Results * Surgical pathology (05/12/2024 7:28 AM CDT) Tissue specimen (specimen) (Duodenum, Biopsy) 05/12/2024 7:28 AM CDT Tissue specimen (specimen) (Gastric/Stomach biopsy) 05/12/2024 7:29 AM CDT Narrative PATHOLOGY [facility] - 05/13/2024 2:37 PM CDT [facility] Department of Pathology [address] [place] [id number] Note to Patients: This report may contain [...] : 1975 (Age: 48) Gender: M Address: [address] [place] [address] Hospital #: [id number] Service: Gastro Location: [facility] Taken: 05/12/2024 Received: 05/12/2024 Accessioned: [...] cm. Entirely submitted. Labeled B1. Jar 0. jjmhb/05/12/2024 12:49 ALENA Cabello, WILLIAM (ASCP) Microscopic slide review and interpretation for this case was performed at [facility], Department of Surgical Pathology, [address] [facility] [place] [place] [id number], [place] [address] CLIA # [id number] us Juan Cowan MD LAB PATHOLOGY ORDERABLES Final R esult PATHOLOGY [facility] * EGD (05/12/2024 6:55 AM CDT) Anatomical Region Laterality Modality Other Narrative Procedure Note Juan Cowan MD - 05/12/2024 6:55 AM CDT [facility] GI ENDOSCOPY Patient Name: Harpreet Santiago Procedure Date: 05/12/2024 6:55 AM Date of : 1975 Admit Type: Outpatient Age: 48 Gender: Male Attending MD: Juan Cowan M.D. Room: [facility] ENDOSCOPY ROOM 03 Note Status: Finalized Procedure: [...] - [facility] - Follow up with transplant hepatology. Juan Cowan M.D. Juan Cowan M.D. 05/12/2024 7:38:20 AM . Number of Addenda: 0 Note Initiated On: 05/12/2024 6:55 AM Recognized by the [place] [employer] for promoting quality in endoscopy Juan Cowan MD ENDOSCOPY PROCEDURES Final Resul t * (ABNORMAL) Troponin T high-sensitivity 2-hour (04/20/2024 12:25 PM COMMUNITY DEVELOPMENT PLANNER) Trop T hs 26(H) <=22 ng/L Comment: Interpretive Data For further hscTnT resources including the diagnostic algorithm and an aid in interpretation, copy and paste this link: https://nrl.testcatalog.org/show/hsTrop Current Interpretive Data last revised 2019. Trop T hs delta -1 ng/L AUDREY LESTER Trop T hs interp Insignificant AUDREY Blood 04/20/2024 12:2 5 PM COMMUNITY DEVELOPMENT PLANNER 04/20/2024 12:31 PM COMMUNITY DEVELOPMENT PLANNER Jacquie THOMAS LAB BLOOD ORDERABLES Final R esult AUDREY [address] [facility] [place] [address] * CT Chest Abdomen Pelvis W Contrast (04/20/2024 12:13 PM COMMUNITY DEVELOPMENT PLANNER) Anatomical Region Laterality Modality Body N/A Computed Tomogra phy 04/20/2024 12:3 6 PM COMMUNITY DEVELOPMENT PLANNER Narrative 04/20/2024 12:54 PM COMMUNITY DEVELOPMENT PLANNER EXAM DESCRIPTION: CT CHEST ABDOMEN PELVIS W [...] signed by Jostin GOLDBERG T: Report ID: [id number] Reading Location: [place] [address] Procedure Note Jostin Alatorre MD - 04/20/2024 [...] Chest radiograph today, CT chest 12/27/2023, CT [id number]/2020 FINDINGS: CHEST LUNGS: Central airways are patent. [...] signed by Jostin GOLDBERG T: Report ID: [id number] Reading Location: [place] [address] PROCEDURES Final Resu lt * CT Head WO Contrast (04/20/2024 12:11 PM COMMUNITY DEVELOPMENT PLANNER) Anatomical Region Laterality Modality Head and Neck N/A Computed Tomogra phy 04/20/2024 12:3 3 PM COMMUNITY DEVELOPMENT PLANNER Narrative 04/20/2024 12:41 PM COMMUNITY DEVELOPMENT PLANNER EXAM DESCRIPTION: CT HEAD WO CONTRAST REASON [...] Bryant Mccoy M.D. MZ T: Report ID: [id number] Reading Location: [id number] Procedure Note Bryant Mccoy MD - 04/20/2024 [...] Bryant Mccoy M.D. MZ T: Report ID: [id number] Reading Location: [place] [address] PROCEDURES Final Resu lt * (ABNORMAL) Drugs of Abuse Screen, Urine with Reflex Confirmation (04/20/2024 11:00 AM COMMUNITY DEVELOPMENT PLANNER) Amphetamine, ur Not Detected CutOff 500ng/mL Comment: Interpretive Data - Amphetamines: Samples containing greater than 500 ng/mL d-methamphetamine or other cross-reacting amphetamine compounds are reported as positive. Amphetamine immunoassays are subject to significant false positive rates due to cross-reactivity of non-amphetamine drugs. Confirmatory testing required for definitive results. Current Interpretive Data was last reviewed 2022. Barbiturates, ur Not Detected CutOff 200ng/mL [facility] Comment: Interpretive Data - Barbiturates: Samples containing greater than 200 ng/mL secobarbital or other cross-reacting barbiturate compounds are reported as positive. False positive and false negative results are possible. Confirmatory testing required for definitive results. Current Interpretive Data was last reviewed 2022. Benzodiazepines, ur Screen Positive, presumptive (A) CutOff 100ng/mL [facility] Comment: Interpretive Data - Benzodiazepines: Samples containing greater than 100 ng/mL nordiazepam or other cross-reacting compounds are reported as positive. False positive and false negative results are possible. Confirmatory testing required for definitive results. Current Interpretive Data was last reviewed 2022. Cannabinoids, ur Screen Positive, presumptive (A) CutOff 50 ng/mL [facility] Comment: Interpretive Data - Cannabinoids: Samples containing greater than 50 ng/mL delta-9 THC -COOH or other cross- reacting compounds are reported as positive. False positive and false negative results are possible. Confirmatory testing required for definitive results. Current Interpretive Data was last reviewed 2022. Cocaine, ur Not Detected CutOff 150ng/mL [facility] Comment: Interpretive Data - Cocaine: Samples containing greater than 150 ng/mL benzoylecgonine or other cross- reacting compounds are reported as positive. False positive and false negative results are possible. Confirmatory testing required for definitive results. Current Interpretive Data was last reviewed 2022. Fentanyl, Ur Not Detected CutOff 5 ng/mL [facility] Comment: Interpretive Data - Fentanyl: Samples containing greater than 5 ng/mL norfentanyl, fentanyl, or other cross-reacting fentanyl compounds are reported as positive. False positive and false negative results are possible. Confirmatory testing required for definitive results. Current Interpretive Data was last reviewed 2023. Methadone, ur Not Detected CutOff 300ng/mL [facility] Comment: Interpretive Data - Methadone: Samples containing greater than 300 ng/mL d,l-methadone or other cross-reacting compounds are reported as positive. False positive and false negative results are possible. Confirmatory testing required for definitive results. Current Interpretive Data was last reviewed 2022. Opiates, ur Not Detected CutOff 300ng/mL [facility] Comment: Interpretive Data - Opiates: Samples containing greater than 300 ng/mL morphine or other cross-reacting compounds are reported as positive. False positive and false negative results are possible. Confirmatory testing required for definitive results. Current Interpretive Data was last reviewed 2022. Oxycodone, ur Not Detected CutOff 100ng/mL [facility] Comment: Interpretive Data - Oxycodone: Samples containing greater than 100 ng/mL oxycodone or other cross-reacting compounds are reported as positive. False positive and false negative results are possible. Confirmatory testing required for definitive results. Current Interpretive Data was last reviewed 2022. Phencyclidine, ur Not Detected CutOff 25 ng/mL [facility] Comment: Interpretive Data - Phencyclidine: Samples containing greater than 25 ng/mL phencyclidine or other cross-reacting compounds are reported as positive. False positive and false negative results are possible. Confirmatory testing required for definitive results. Current Interpretive Data was last reviewed 2022. Urine Creatinine 124 mg/dL [facility] Comment: Interpretive Data Urine Creatinine: < 10 mg/dL is extremely dilute = or > 10 but < 20 mg/dL is dilute = or > 20 mg/dL is normal Current Interpretive Data was last revised on 2017. Urine 04/20/2024 11:0 0 AM COMMUNITY DEVELOPMENT PLANNER 04/20/2024 11:04 AM COMMUNITY DEVELOPMENT PLANNER Narrative [facility] - 04/20/2024 11:30 AM COMMUNITY DEVELOPMENT PLANNER Drug of Abuse screening is performed by immunoassay for medical purposes only. This is not to be used for Pain Management purposes. If Detected, confirmation testing will be performed for Amphetamines, Cocaine, Fentanyl, Methadone, Opiates, Oxycodone or Phencyclidine. us Jacquie THOMAS LAB URINE ORDERABLES Final R esult [facility] [address] [facility] Department [place] [address] * (ABNORMAL) Urinalysis reflex to microscopic and culture Urine (04/20/2024 11:00 AM COMMUNITY DEVELOPMENT PLANNER) Color, ur Yellow Yellow Clarity, ur Clear Clear [facility] Specific gravity, ur 1.018 1.003 - 1.030 [facility] pH, urine 8.0 [facility] Comment: Interpretive Data U rine pH is affected by diet, medications, systemic acid-base disturbances, and renal tubular function. pH may affect urinary stone formation. For example, urine pH below 6.0 may help reduce the tendency for calcium phosphate stones and pH greater than 6.0 may reduce the tendency for uric acid stone formation. Source: [facility] Current Interpretive Data was last revised on 2017 Protein, ur ql Negative Negative [facility] Glucose, ur ql Negative Negative [facility] Ketones, ur Negative Negative [facility] Bilirubin, ur 1+(A) Negative [facility] Blood, ur Negative Negative [facility] Urobilinogen, ur >=8.0(A) <2.0 mg/dL [facility] Nitrite, ur Negative Negative [facility] Leukocyte esterase, ur 1+(A) Negative [facility] UA reflex comment Reflex to microscopic UA will be performed. [facility] Urine 04/20/2024 11:0 0 AM COMMUNITY DEVELOPMENT PLANNER 04/20/2024 11:04 AM COMMUNITY DEVELOPMENT PLANNER Jacquie TOHMAS LAB MICROBIOLOGY - GENERAL O RDERABLES Final Result [place] [id number] [facility] Department [place] [address] * (ABNORMAL) Urinalysis, microscopic only (04/20/2024 11:00 AM COMMUNITY DEVELOPMENT PLANNER) WBC, ur 0-5 0 - 5 /HPF RBC, ur 0-2 0 - 2 /HPF [facility] Epithelial cells, squamous, ur 1-5 0 - 5 /HPF [facility] Mucous, ur Present(A) [facility] Hyaline casts, ur 6-10 0 - 10 /LPF [facility] Culture Reflex Comment Reflex conditions for urine culture (WBC >10) not met. [facility] Urine 04/20/2024 11:0 0 AM COMMUNITY DEVELOPMENT PLANNER 04/20/2024 11:04 AM COMMUNITY DEVELOPMENT PLANNER Jacquie THOMAS LAB URINE ORDERABLES Final R esult Performing Organization Address [facility] de Phone Number AUDREY [address] [email or web address] [address] * (ABNORMAL) Protime-INR (04/20/2024 10:50 AM COMMUNITY DEVELOPMENT PLANNER) PT 19.2(H) 12.0 - 14.6 sec Comment:Ref Range High INR 1.6(H) 0.9 - 1.2 [facility] Comment: Ref Range High Interpretive data Oral anticoagulant therapeutic ranges: Venous thromboembolism prophylaxis or treatment: 2.0-3.0 CARDIOLOGY Standard range: 2.0-3.0 High-intensity range: 2.5-3.5 Refer to indication-specific guidelines for appropriate target ranges for prosthetic heart valve replacement. Current interpretive data was last revised on 2019. Blood 04/20/2024 10:5 0 AM COMMUNITY DEVELOPMENT PLANNER 04/20/2024 10:52 AM COMMUNITY DEVELOPMENT PLANNER Jacquie THOMAS LAB BLOOD ORDERABLES Final R [facility] Performing Organization Address [facility] de Phone Number [id number] [email or web address] [address] * XR Chest 1 Vw Portable (if patient condition/safety warrant portable) (04/20/2024 10:43 AM COMMUNITY DEVELOPMENT PLANNER) Anatomical Region Laterality Modality Body, Chest N/A Computed Radiogr aphy 04/20/2024 11:0 7 AM COMMUNITY DEVELOPMENT PLANNER Narrative 04/20/2024 11:08 AM COMMUNITY DEVELOPMENT PLANNER EXAM DESCRIPTION: XR CHEST 1 VIEW REASON [...] - Electronically signed by Lesli Louie D.O. Lesli Louie D.O. PS T: Report ID: [id number] Reading Location: [id number] Procedure Note Lesli Louie, DO - 04/20/2024 EXAM DESCRIPTION: XR CHEST 1 [...] - Electronically signed by Lesli Louie D.O. Lesli Louie D.O. PS T: Report ID: [id number] Reading Location: [id number] Jacquie THOMAS IMG XR PROCEDURES Final Resu lt * (ABNORMAL) Troponin T high-sensitivity series (baseline, 2hr, 4hr, 6hr) (04/20/2024 10:27 AM COMMUNITY DEVELOPMENT PLANNER) Trop T hs 27(H) <=22 ng/L Comment: Interpretive Data For further hscTnT resources including the diagnostic algorithm and an aid in interpretation, copy and paste this link: https://nrl.testcatalog.org/show/hsTrop Current Interpretive Data last revised 2019. Blood 04/20/2024 10:2 7 AM COMMUNITY DEVELOPMENT PLANNER 04/20/2024 10:34 AM COMMUNITY DEVELOPMENT PLANNER us Jacquie THOMAS LAB BLOOD ORDERABLES Final R esult Performing Organization Address [facility]/[employer] de Phone Number AUDREY [address] [place], [place] [id number] * eGFR (04/20/2024 10:27 AM COMMUNITY DEVELOPMENT PLANNER) eGFR >90 >=60 mL/min/1. 73 m2 Comment: [...] reviewed 2020. Blood 04/20/2024 10:2 7 AM COMMUNITY DEVELOPMENT PLANNER 04/20/2024 10:34 AM COMMUNITY DEVELOPMENT PLANNER us Jacquie THOMAS LAB BLOOD ORDERABLES Final R esult Performing Organization Address City/[facility]/ZIP Co de Phone Number [id number] [place] [address] * Differential, auto (04/20/2024 10:27 AM COMMUNITY DEVELOPMENT PLANNER) Neutrophil abs 2.4 1.5 - 6.5 K/cumm Imm gran abs 0.0 0.0 - 0.1 K/cumm [facility] Lymphocyte abs 0.8 0.8 - 3.3 K/cumm [facility] Monocyte abs 0.4 0.2 - 0.8 K/cumm [facility] Eosinophil abs 0.2 0.0 - 0.5 K/cumm [facility] Basophil abs 0.1 0.0 - 0.1 K/cumm [facility] Neutrophil pct 61.0 % [facility] Comment: Interpretive Data Percent cell count reference ranges are not reported, since discordance with absolute values may lead to misinterpretation of CBC data. Current Interpretive Data was last revised on 2017. Imm gran pct 0.5 % [facility] Comment: Interpretive Data Percent cell count reference ranges are not reported, since discordance with absolute values may lead to misinterpretation of CBC data. Current Interpretive Data was last revised on 2017. Lymphocyte pct 19.8 % [facility] Comment: Interpretive Data Percent cell count reference ranges are not reported, since discordance with absolute values may lead to misinterpretation of CBC data. Current Interpretive Data was last revised on 2017. Monocyte pct 11.3 % [facility] Comment: Interpretive Data Percent cell count reference ranges are not reported, since discordance with absolute values may lead to misinterpretation of CBC data. Current Interpretive Data was last revised on 2017. Eosinophil pct 4.6 % [facility] Comment: Interpretive Data Percent cell count reference ranges are not reported, since discordance with absolute values may lead to misinterpretation of CBC data. Current Interpretive Data was last revised on 2017. Basophil pct 2.8 % [facility] Comment: Interpretive Data Percent cell count reference ranges are not reported, since discordance with absolute values may lead to misinterpretation of CBC data. Current Interpretive Data was last revised on 2017. Blood 04/20/2024 10:2 7 AM COMMUNITY DEVELOPMENT PLANNER 04/20/2024 10:34 AM COMMUNITY DEVELOPMENT PLANNER us Jacquie THOMAS LAB BLOOD ORDERABLES Final R alban Performing Organization Address [facility] Co de Phone Number AUDREY [address] Department [place] [address] * (ABNORMAL) Pro B-type natriuretic peptide (04/20/2024 10:27 AM COMMUNITY DEVELOPMENT PLANNER) NT-proBNP 413(H) <=300 pg/mL Comment: Interpretive Comments: [...] Date: 2017. Blood 04/20/2024 10:2 7 AM COMMUNITY DEVELOPMENT PLANNER 04/20/2024 10:34 AM COMMUNITY DEVELOPMENT PLANNER us Jacquiestuart THOMAS LAB BLOOD ORDERABLES Final R alban Performing Organization Address [facility]/ZIP Co de Phone Number [address] [address] * Thyroid Function [place] (04/20/2024 10:27 AM COMMUNITY DEVELOPMENT PLANNER) [facility] TSH 2.43 0.30 - 4.20 mcIUnit/mL Blood 04/20/2024 10:2 7 AM COMMUNITY DEVELOPMENT PLANNER 04/20/2024 10:34 AM COMMUNITY DEVELOPMENT PLANNER us Jacquie THOMAS LAB BLOOD ORDERABLES Final R esult Performing Organization Address [facility] de Phone Number [address] [address] * (ABNORMAL) CBC with auto differential (04/20/2024 10:27 AM COMMUNITY DEVELOPMENT PLANNER) [facility] WBC 3.9 3.8 - 9.9 K/cumm Hgb 11.0(L) 13.0 - 17.5 g/dL [facility] Hct 32.4(L) 38.9 - 50.3 % [facility] Plt 68(L) 150 - 400 K/cumm [facility] MPV 10.5 9.1 - 12.3 fL [facility] RBC 3.34(L) 4.30 - 5.80 M/cumm [facility] MCV 97.0(H) 81.3 - 96.4 fL [facility] MCH 32.9 27.1 - 33.3 pg [facility] MCHC 34.0 32.3 - 35.7 g/dL [facility] RDW CV 16.0(H) 11.1 - 14.9 % [facility] RDW SD 57.1(H) 35.7 - 48.1 fL [facility] NRBC abs 0.00 0.00 - 0.01 K/cumm [facility] Blood 04/20/2024 10:2 7 AM COMMUNITY DEVELOPMENT PLANNER 04/20/2024 10:34 AM COMMUNITY DEVELOPMENT PLANNER Jacquie THOMAS LAB BLOOD ORDERABLES Final R esult Performing Organization Address [facility] Co de Phone Number [facility] [address] [address] * Magnesium (04/20/2024 10:27 AM COMMUNITY DEVELOPMENT PLANNER) [facility] Magnesium 1.5 1.4 - 2.5 mg/dL Blood 04/20/2024 10:2 7 AM COMMUNITY DEVELOPMENT PLANNER 04/20/2024 10:34 AM COMMUNITY DEVELOPMENT PLANNER Jacquie THOMAS LAB BLOOD ORDERABLES Final R esult Performing Organization Address [facility] Co de Phone Number AUDREY [address] [address] * Lipase (04/20/2024 10:27 AM COMMUNITY DEVELOPMENT PLANNER) [facility] Lipase 33 10 - 99 Units/L Blood 04/20/2024 10:2 7 AM COMMUNITY DEVELOPMENT PLANNER 04/20/2024 10:34 AM COMMUNITY DEVELOPMENT PLANNER Result [facility] Jacquie THOMAS LAB BLOOD ORDERABLES Final R esult Performing Organization Address [facility] de Phone Number AUDREY [address] [address] * Ammonia (04/20/2024 10:27 AM COMMUNITY DEVELOPMENT PLANNER) [facility] Ammonia 39 <=50 mcmol/L Comment: Please note on 06/26/2023 the unit of measure changed from mcg/dL to mcmol/L. Current Interpretive Data was last revised on 2023. Blood 04/20/2024 10:2 7 AM COMMUNITY DEVELOPMENT PLANNER 04/20/2024 10:31 AM COMMUNITY DEVELOPMENT PLANNER Result [facility] Jacquie THOMAS LAB BLOOD ORDERABLES Final R esult Performing Organization Address [facility] Co de Phone Number AUDREY [address] [address] * (ABNORMAL) Ethanol (04/20/2024 10:27 AM COMMUNITY DEVELOPMENT PLANNER) Ethanol 85(H) <=10 mg/dL Comment: Interpretive Data Legal limit of intoxication > or = 80 mg/dL Levels > or = 400 mg/dL are potentially TOXIC. Current interpretive data was last revised on 2018. Blood 04/20/2024 10:2 7 AM COMMUNITY DEVELOPMENT PLANNER 04/20/2024 10:34 AM COMMUNITY DEVELOPMENT PLANNER Jacquie THOMAS LAB BLOOD ORDERABLES Final R esult [facility] [address] [facility] Department [place] [address] * (ABNORMAL) Comprehensive metabolic panel (04/20/2024 10:27 AM COMMUNITY DEVELOPMENT PLANNER) Pathologist [facility] Sodium 140 135 - 145 mmol/L Potassium, pl 3.5 3.3 - 4.9 mmol/L [facility] Chloride 96(L) 97 - 110 mmol/L [facility] CO2 29 22 - 32 mmol/L [facility] Anion gap 15 2 - 15 mmol/L [facility] BUN 6 6 - 25 mg/dL [facility] Creatinine 0.56(L) 0.80 - 1.30 mg/dL [facility] Glucose 104 70 - 199 mg/dL [facility] Comment: Interpretive Data Fasting glucose >/= 126 [...] 2022. Calcium 9.2 8.5 - 10.3 mg/dL [facility] Bilirubin, total 8.3(H) 0.1 - 1.2 mg/dL [facility] Protein, pl 7.8 6.5 - 8.5 g/dL [facility] Albumin 4.0 3.5 - 5.0 g/dL [facility] Alk phos 132(H) 40 - 130 Units/L [facility] ALT 61(H) 7 - 55 Units/L [facility] AST 192(H) 10 - 50 Units/L [facility] Blood 04/20/2024 10:2 7 AM COMMUNITY DEVELOPMENT PLANNER 04/20/2024 10:34 AM COMMUNITY DEVELOPMENT PLANNER Jacquie THOMAS LAB BLOOD ORDERABLES Final R esult Performing Organization Address [facility]/ZIP Co de Phone Number AUDREY [address] [facility] Department [place] [address] * ECG 12 lead (04/20/2024 10:19 AM COMMUNITY DEVELOPMENT PLANNER) Pathologist [facility] Ventricular Rate EKG/Min 75 BPM [facility] Atrial Rate 75 BPM [facility] VT-Interval (MSEC) 196 ms [facility] QRS-Interval (MSEC) 86 ms [facility] QT-Interval (MSEC) 450 ms [facility] QTc 502 ms [facility] P [place] 41 degrees [facility] R [place] -11 degrees [facility] T [place] -24 degrees [facility] Diagnosis Normal sinus rhythm Nonspecific T wave abnormality Abnormal ECG When compared with ECG of 13-JAN-2024 08:46, Premature atrial complexes are no longer Present Nonspecific T wave abnormality now evident in Anterolateral leads Confirmed by SULTAN HERNANDEZ M.D. ([id number]) on 04/20/2024 2:47:34 PM [facility] 04/20/2024 10:1 9 AM COMMUNITY DEVELOPMENT PLANNER 04/20/2024 2:47 PM COMMUNITY DEVELOPMENT PLANNER Jacquie THOMAS ECG ORDERABLES Final Result [facility] * Immature platelet fraction (04/16/2024 10:09 AM COMMUNITY DEVELOPMENT PLANNER) Pathologist [facility] IPF 5.9 1.6 - 10.1 % Blood 04/16/2024 10:0 9 AM COMMUNITY DEVELOPMENT PLANNER 04/16/2024 10:39 AM COMMUNITY DEVELOPMENT PLANNER Celso Hinton MD LAB BLOOD ORDERABLES Final Res ult Performing Organization Address [facility] Co de Phone Number [facility] Department [place] [address] * eGFR (04/16/2024 10:09 AM COMMUNITY DEVELOPMENT PLANNER) eGFR >90 >=60 mL/min/1. 73 m2 Comment: [...] reviewed 2020. Blood 04/16/2024 10:0 9 AM COMMUNITY DEVELOPMENT PLANNER 04/16/2024 10:34 AM COMMUNITY DEVELOPMENT PLANNER Celso Hinton MD LAB BLOOD ORDERABLES Final Res ult Performing Organization Address [facility] Co de Phone Number [facility] Department [place] [address] * (ABNORMAL) Differential, auto (04/16/2024 10:09 AM COMMUNITY DEVELOPMENT PLANNER) Neutrophil abs 1.8 1.5 - 6.5 K/cumm Imm gran abs 0.0 0.0 - 0.1 K/cumm [facility] Lymphocyte abs 0.7(L) 0.8 - 3.3 K/cumm [facility] Monocyte abs 0.5 0.2 - 0.8 K/cumm [facility] Eosinophil abs 0.2 0.0 - 0.5 K/cumm [facility] Basophil abs 0.1 0.0 - 0.1 K/cumm [facility] Neutrophil pct 55.0 % [facility] Comment: Interpretive Data Percent cell count reference ranges are not reported, since discordance with absolute values may lead to misinterpretation of CBC data. Current Interpretive Data was last revised on 2017. Imm gran pct 0.6 % [facility] Comment: Interpretive Data Percent cell count reference ranges are not reported, since discordance with absolute values may lead to misinterpretation of CBC data. Current Interpretive Data was last revised on 2017. Lymphocyte pct 21.3 % [facility] Comment: Interpretive Data Percent cell count reference ranges are not reported, since discordance with absolute values may lead to misinterpretation of CBC data. Current Interpretive Data was last revised on 2017. Monocyte pct 15.1 % [facility] Comment: Interpretive Data Percent cell count reference ranges are not reported, since discordance with absolute values may lead to misinterpretation of CBC data. Current Interpretive Data was last revised on 2017. Eosinophil pct 4.9 % [facility] Comment: Interpretive Data Percent cell count reference ranges are not reported, since discordance with absolute values may lead to misinterpretation of CBC data. Current Interpretive Data was last revised on 2017. Basophil pct 3.1 % [facility] Comment: Interpretive Data Percent cell count reference ranges are not reported, since discordance with absolute values may lead to misinterpretation of CBC data. Current Interpretive Data was last revised on 2017. Blood 04/16/2024 10:0 9 AM COMMUNITY DEVELOPMENT PLANNER 04/16/2024 10:29 AM COMMUNITY DEVELOPMENT PLANNER us Celso Hinton MD LAB BLOOD ORDERABLES Final Res ult [facility] Department [place] [address] * (ABNORMAL) CBC with auto differential (04/16/2024 10:09 AM COMMUNITY DEVELOPMENT PLANNER) WBC 3.2(L) 3.8 - 9.9 K/cumm Hgb 9.7(L) 13.0 - 17.5 g/dL [facility] Hct 27.9(L) 38.9 - 50.3 % [facility] Plt 41(C) 150 - 400 K/cumm [facility] Comment:No clot detected in sample. paged [id number]. Critical result called to and read back by RICKY HALL RN on 04 16 2024 at 1140 to Fernie Thomason. MPV 11.2 9.1 - 12.3 fL [facility] RBC 2.94(L) 4.30 - 5.80 M/cumm [facility] MCV 94.9 81.3 - 96.4 fL [facility] MCH 33.0 27.1 - 33.3 pg [facility] MCHC 34.8 32.3 - 35.7 g/dL [facility] RDW CV 15.4(H) 11.1 - 14.9 % [facility] RDW SD 53.6(H) 35.7 - 48.1 fL [facility] NRBC abs 0.00 0.00 - 0.01 K/cumm [facility] Blood 04/16/2024 10:0 9 AM COMMUNITY DEVELOPMENT PLANNER 04/16/2024 10:29 AM COMMUNITY DEVELOPMENT PLANNER us Celso Hinton MD LAB BLOOD ORDERABLES Final Res ult [facility] Department [place] [address] * [id number], Tumor Marker (04/16/2024 10:09 AM COMMUNITY DEVELOPMENT PLANNER) [facility] alpha Fetoprotein 4.3 <=8.3 ng/mL Comment: Interpretive [...] et al. J. Ped Surg 1978;13:[id number] Kayleigh Francisco et al. Clin Chem Lab Med 2018;57:783-797 Doreen Shah et al. Clin Chem 2014;[id number]. Current interpretive data was last revised 2021. Blood 04/16/2024 10:0 9 AM COMMUNITY DEVELOPMENT PLANNER 04/16/2024 10:29 AM COMMUNITY DEVELOPMENT PLANNER us Celso Hinton MD LAB BLOOD ORDERABLES Final Res ult [facility] Department [place] [address] * (ABNORMAL) Comprehensive metabolic panel (04/16/2024 10:09 AM COMMUNITY DEVELOPMENT PLANNER) [facility] Sodium 137 135 - 145 mmol/L Potassium, pl 3.9 3.3 - 4.9 mmol/L [facility] Chloride 95(L) 97 - 110 mmol/L [facility] CO2 30 22 - 32 mmol/L [facility] Anion gap 12 2 - 15 mmol/L [facility] BUN 5(L) 6 - 25 mg/dL [facility] Creatinine 0.59(L) 0.80 - 1.30 mg/dL [facility] Glucose 105 70 - 199 mg/dL [facility] Comment: Interpretive Data Fasting glucose >/= 126 [...] 9.2 8.5 - 10.3 mg/dL [facility] Bilirubin, total 8.2(H) 0.1 - 1.2 mg/dL [facility] Protein, pl 7.6 6.5 - 8.5 g/dL [facility] Albumin 3.9 3.5 - 5.0 g/dL [facility] Alk phos 152(H) 40 - 130 Units/L [facility] ALT 61(H) 7 - 55 Units/L [facility] AST 182(H) 10 - 50 Units/L [facility] Blood 04/16/2024 10:0 9 AM COMMUNITY DEVELOPMENT PLANNER 04/16/2024 10:29 AM COMMUNITY DEVELOPMENT PLANNER us Celso Hinton MD LAB BLOOD ORDERABLES Final Res ult [facility] Department [place] [address] * Hepatitis panel, acute Blood (01/15/2024 5:02 AM COMMUNITY DEVELOPMENT PLANNER) Hep A IgM Nonreactive Nonreactive Comment: Interpretive Data: If Hep A IgM Ab is reported as Equivocal, a new sample should be drawn in two weeks for testing. Current interpretive data was last revised on 19. Hep B core IgM Nonreactive Nonreactive [facility] Comment: Interpretive Data If HepB Core IgM Ab is reported as Equivocal, a new sample should be drawn in two weeks for testing. Current interpretive data was last revised on 19. Hep C Ab Nonreactive Nonreactive [facility] Comment: Antibodies to HCV not detected. Does [...] last revised on 2019. HepBsAg Nonreactive Nonreactive [facility] Blood 01/15/2024 5:02 AM COMMUNITY DEVELOPMENT PLANNER 01/15/2024 8:23 AM COMMUNITY DEVELOPMENT PLANNER Luis Aiken MD LAB MICROBIOLOGY - G ENERAL ORDERABLES Final Result [facility] [address] [facility] [place] [address] from Last 3 Months or Most Recently Relevant to Health Maintenance Insurance [facility] Member Subscriber Plan / Payer (Ef fective 2021-Present) Name:Harpreet Santiago Relation to Subscriber:Self Name:Harpreet Santiago Payer ID:[id number] (NAIC) Group ID:Not on file Type:MEDICAID RISK OTHER Address: ATTN: CLAIMS DEPT [address] [facility] [place] [address] Advance Directives For more information, please contact: [phone] Documents on File Type Date Recorded Patient Captain Assistant Expl anation ADVANCE DIRECTIVE 12/20/2023 3:07 PM Power of Department Operations Manager-Medical * Full Code (Latest Code Status on File) Date Activated Date Inactivated Comments 01/12/2024 10:03 PM 01/15/2024 6:06 PM * Full Code Date Activated Date Inactivated Comments 12/19/2023 2:41 PM 12/31/2023 6:14 PM * Full Code Date Activated Date Inactivated Comments 07/25/2023 1:42 AM 07/27/2023 4:38 PM Care Teams Machine Pack Assembler Relationship Specialty Start Date End Date Mine Ventura NP [address] [place] [id number] PCP - General Nurse Practitioner 12/19/23 Herman Bhatia MD [address] [place] [id number] Consulting Physician Pulmonary Disease 12/31/23 Zhang Simental MD [facility] [address] [address] Consulting Physician Nephrology 01/15/24
--- OUTSIDE RECORDS SUMMARY | 2024-06-12 11:33 | XMS_ITS | Clinical Summary ---
Author Organization [facility] Address [address] [facility] [place] [address] Care Team Providers Care Acid Purification Equipment Operator Name Role Phone Unavailable Primary Care Provider Unavailabl e Allergies No known active allergies Medications amitriptyline (ELAVIL) 25 mg tablet 04/23/2022 Active acetaminophen (TYLENOL) 500 mg tablet 04/23/2022 Active ibuprofen (MOTRIN) 600 mg tablet Take 600 mg by mouth every 6 hours as needed. 04/16/2022 Active folic acid (FOLVITE) 1 mg tablet Take 1 mg by mouth daily. 04/16/2022 Active Vitamin B-1 100 mg tablet Take 1 Tablet by mouth daily. 04/16/2022 Active multivitamin (DAILY-MEE) tablet Take 1 Tablet by mouth daily. 04/30/2022 Active oxyCODONE (ROXICODONE) 5 mg tablet 04/23/2022 Active gabapentin (NEURONTIN) 300 mg capsuleIndicatio ns:Erythrocytosi s TAKE 1 CAPSULE(300 MG) BY MOUTH THREE TIMES DAILY 90 Capsule 4 12/14/2022 Active Active Problems Problem Noted Date Diagnosed Date Chronic anemia 01/27/2021 Acne rosacea 04/16/2019 Resolved Problems Problem Noted Date Diagnosed Date Resolved Date Erythrocytosis 09/02/2017 01/27/2021 Encounters Date Type Department Care Team Description 06/02/2024 External Device Data STL ABSTRACTION Provider, Abstract 04/28/2024 External Device Data STL ABSTRACTION Provider, Abstract 04/28/2024 External Device Data ST[place] ABSTRACTION Provider, Abstract 04/25/2024 External Device Data ST[place] ABSTRACTION Provider, Abstract 04/24/2024 External Device Data ST[place] ABSTRACTION Provider, Abstract 04/14/2024 External Device Data STL ABSTRACTION Provider, Abstract 03/18/2024 4:30 PM TECHNICAL ASST Telephone Check Up [facility] Oncology and Hematology - [place] [address] [place] [address] Yosi Caro MD Chronic anemia (Primary Dx) 03/16/2024 Orders Only Initial Department [address] SAPPN: [place] [address] Provider, Historical from Last 3 Months Family History Medical History Relation Name Comments Healthy Brother Diabetes Father Heart Disease Father Other Mother Healthy Sister 1 Healthy Sister 2 Relation Name Status Comments Brother Alive Father Alive Mother Alive Sister 1 Alive Sister 2 Alive Social History Tobacco Use Types Packs/Day Years Used Date Smoking Tobacco: Former Cigarettes 1 3 Q uit: 11/07/2018 Tobacco Cessation:Counseling Given: Not Answered Alcohol Use Standard Drinks/Week Comments Yes 60 (1 standard drink = 0.6 oz pu re alcohol) states he is an alcoholic Sex and Gender Information Value Date Recorded Sex Assigned at Not on file Legal Sex Male 1:29 PM CDT Gender Identity Not on file Sexual Orientation Not on file Last Filed Vital Signs Vital Sign Reading Time Taken Comments Blood Pressure 136/63 11/08/2023 8:34 AM CDT Pulse 88 11/08/2023 8:34 AM CDT Temperature 36.8 C (98.2 F) 11/08/2023 8:30 AM CDT Respiratory Rate 16 11/08/2023 8:30 AM CDT Oxygen Saturation 97% 11/08/2023 8:30 AM CDT Inhaled Oxygen Concentration - - Weight 125.2 kg (276 lb) 11/08/2023 8:30 AM CDT Height 188 cm (6' 2 ) 07/26/2021 10:17 AM CDT Body Mass Index 35.44 07/26/2021 10:17 AM CDT Plan of Treatment Upcoming Encounters Date Type Department Care Team (Late st Contact Info) Description 06/19/2024 12:15 PM CDT Office Visit [facility] Oncology and Hematology - [place] [address] [place] [address] Yosi Caro MD [address] [facility] [address] [place] [address] Health Maintenance Due Date Last Done Comments Pre-Diabetes and Diabetes Screening 1973 DTAP/TDAP/TD VACCINES (1 - Tdap) 1992 HEPATITIS B VACCINES (1 of 3 - 19+ 3-dose series) 1992 Preventative Visit-Managed Medicaid 1992 COLORECTAL SCREENING 2018 Colorectal Cancer Screening 2018 FIT-DNA Q 3 years 2018 FIT/FOBT Q 1 year 2018 Flex Sig/CT Colonography Q 5 years 2018 ZOSTER VACCINE (1 of 2) 06/01/2023 INFLUENZA VACCINE (#1) 2023 COVID-19 Vaccine (2023- season) 10/20/202304/2020, 05/27/2020 Abdominal Aortic Aneurysm (AAA) Screening Completed 01/13/2024 Procedures Procedure Name Priority Date/Time Associated Diagnosis Comments CBC WITH DIFFERENTIAL Routine 03/17/2024 11:55 AM TECHNICAL ASST Chronic anemia COMPREHENSIVE METABOLIC PANEL Routine 03/17/2024 11:55 AM TECHNICAL ASST Chronic anemia FERRITIN Routine 03/16/2024 9:04 AM TECHNICAL ASST IRON, TIBC, AND PERCENT SATURATION Routine 03/16/2024 9:04 AM TECHNICAL ASST from Last 3 Months Results * (ABNORMAL) CBC WITH DIFFERENTIAL (03/17/2024 11:55 AM TECHNICAL ASST) WBC 3.7(L) 3.8 - 10.8 Thousand/ uL [facility] RBC 3.74(L) 4.20 - 5.80 Million/u L [facility] HEMOGLOBIN 11.7(L) 13.2 - 17.1 g/dL [facility] HEMATOCRIT 34.4(L) 38.5 - 50.0 % [facility] MCV 92.0 80.0 - 100.0 fL [facility] MCH 31.3 27.0 - 33.0 pg [facility] MCHC 34.0 32.0 - 36.0 g/dL [facility] Comment: For adults, a slight decrease in the calculated MCHC value (in the range of 30 to 32 g/dL) is most likely not clinically significant; however, it should be interpreted with caution in correlation with other red cell parameters and the patient's clinical condition. RDW 13.3 11.0 - 15.0 % [facility] PLATELETS 46(L) 140 - 400 Thousand/ uL [facility] MPV 12.2 7.5 - 12.5 fL [facility] NEUTROPHIL ABSOLUTE 1,480(L) 1,500 - 7,800 cells/uL [facility] LYMPHOCYTE ABSOLUTE 1,369 850 - 3,900 cells/uL [facility] MONOCYTE ABSOLUTE 481 200 - 950 cells/uL [facility] EOSINOPHIL ABSOLUTE 333 15 - 500 cells/uL [facility] BASOPHILS ABSOLUTE 37 0 - 200 cells/uL [facility] NEUTROPHIL 40 % [facility] LYMPHOCYTES 37 % [facility] MONOCYTE 13 % [facility] EOSINOPHILS 9 % [facility] BASOPHILS 1 % [facility] COMMENT HEMATOLOGY [facility] Comment: The smear has been manually reviewed and the manual differential has been reported. Microcytosis 1 + Hypochromasia 1 + Review of the peripheral smear reveals decreased numbers of platelets. FASTING:YES FASTING: YES Test Performed at: [facility] [address] [place] [address] Diamond Cedeno Vo Blood 03/17/2024 11:5 5 AM TECHNICAL ASST 03/17/2024 11:55 AM TECHNICAL ASST us Yosi Caro MD HEMATOLOGY ORDERABLES Final Res ult [facility] [phone] [facility] [address] [address] [place] [address] * (ABNORMAL) COMPREHENSIVE METABOLIC PANEL (03/17/2024 11:55 AM TECHNICAL ASST) GLUCOSE 79 65 - 99 mg/dL [facility] Comment: Fasting reference interval BUN 6(L) 7 - 25 mg/dL [facility] CREATININE 0.55(L) 0.70 - 1.30 mg/dL [facility] GFR 121 > OR = 60 mL/min/1. 73m2 [facility] BUN/CREAT RATIO 11 6 - 22 (calc) [facility] SODIUM 139 135 - 146 mmol/L [facility] POTASSIUM 3.5 3.5 - 5.3 mmol/L [facility] CHLORIDE 100 98 - 110 mmol/L [facility] CO2 26 20 - 32 mmol/L [facility] CALCIUM 8.7 8.6 - 10.3 mg/dL [facility] TOTAL PROTEIN 7.3 6.1 - 8.1 g/dL [facility] ALBUMIN 4.0 3.6 - 5.1 g/dL [facility] GLOBULIN 3.3 1.9 - 3.7 g/dL (calc) [facility] ALBUMIN/GLOBULIN RATIO 1.2 1.0 - 2.5 (calc) [facility] BILIRUBIN TOTAL 5.0(H) 0.2 - 1.2 mg/dL [facility] ALKALINE PHOSPHATASE 144 35 - 144 U/L [facility] AST 112(H) 10 - 35 U/L [facility] ALT 34 9 - 46 U/L [facility] Comment: Test Performed at: [facility] [address] [place] [address] Diamond Cedeno Vo Blood 03/17/2024 11:5 5 AM TECHNICAL ASST 03/17/2024 11:55 AM TECHNICAL ASST us Yosi Caro MD CHEMISTRY ORDERABLES Final Resu lt [facility] [phone] [facility] [place] [address] [place] [address] * (ABNORMAL) IRON, TIBC, AND PERCENT SATURATION (03/16/2024 9:04 AM TECHNICAL ASST) IRON 186(H) 50 - 180 mcg/dL [facility] TIBC 196(L) 250 - 425 mcg/dL (calc) [facility] IRON % SATURATION 95(H) 20 - 48 % (calc) [facility] Comment: Test Performed at: [facility] [address] [facility] [place] [address] Diamond Varela MD 03/16/2024 9:04 AM TECHNICAL ASST 03/16/2024 9:05 AM TECHNICAL ASST Yosi Caro MD CHEMISTRY ORDERABLES Final Resu lt [facility] [phone] [address] [address] * (ABNORMAL) FERRITIN (03/16/2024 9:04 AM TECHNICAL ASST) FERRITIN 460(H) 38 - 380 ng/mL [facility] Comment: Test Performed at: [facility] [facility] [address] [address] [facility] [place] [address] Diamond Varela MD 03/16/2024 9:04 AM TECHNICAL ASST 03/16/2024 9:05 AM TECHNICAL ASST Yosi Caro MD CHEMISTRY ORDERABLES Final Resu lt [facility] [phone] [facility] [address] [place] [address] from Last 3 Months Insurance [facility] MEDICAID Member Subscriber Plan / Payer (Ef fective 2020-Present) Name:Harpreet England Relation to Subscriber:Self Name:Harpreet England Payer ID:[id number] (NAIC) Group ID:Not on file Type:O Address: [place] [id number] [employer] MED[employer]
--- OUTSIDE RECORDS SUMMARY | 2024-06-12 11:33 | XMS_ITS | Clinical Summary ---
Author Organization [facility] Address [address] [place] [address] Care Team Providers Care Clother In Name Role Phone Gus Peralta MD Primary Care Provider [phone] Social History Tobacco Use Types Packs/Day Years Used Date Smoking Tobacco: Never Assessed Sex and Gender Information Value Date Recorded Sex Assigned at Not on file Legal Sex Male 5:31 PM CDT Gender Identity Not on file Sexual Orientation Not on file Plan of Treatment Health Maintenance Due Date Last Done Comments Colorectal Cancer Screening Colonoscopy (10 Years) 1973 Annual Physical 1976 Hepatitis C 06/01/1991 DTaP, Tdap and Td Vaccines ( 1 - Tdap) 1992 Hepatitis B Vaccines (1 of 3 - 19+ 3-dose series) 1992 Pneumococcal Vaccine: 50+ Years (1 of 1 - PCV) 06/01/2023 Zoster Vaccines (1 of 2) 06/01/2023 COVID-19 Vaccine (3 - 2023-2 5 season) 2023 06/20/2020, 05/27/2020 PHQ-2 (Physician [place]) 02/19/2024 Meningococcal B Vaccine Aged Out No l onger eligible based on patient's age to complete this topic Meningococcal Vaccine Aged Out No yolanda isma eligible based on patient's age to complete this topic RSV Immunizations Under 20 Months Aged Out No longer eligible b ased on patient's age to complete this topic Insurance [employer] Care Teams Clother In Relationship Specialty Start Date End Date Gus Peralta MD [phone] [address] PCP - General 07/06/10
[2024-06-12 12:27] LABS: Iron 189 ug/dL (49-181)
[2024-06-12 12:38] LABS: Percent Iron Saturation 69 % (20-50)
== END 2024-06-12 11:11 | disposition home or self-care (01) ==
LOC: ANHLAB 11:11
PROVIDERS: PCP Nurse Practitioner Family; Visit Provider Internal Medicine Hematology & Oncology
DX: D64.9 Anemia, unspecified (principal)
CPT/HCPCS: 36415; 82728; 83540; 83550; 85027

== ENCOUNTER 2024-08-06 08:00 | Outpatient (RCR) | payer OTHER, SELFPAY ==
--- NOTE | 2024-06-25 10:06 | OPREHPOC ---
Outpatient Therapy Plan of Care This is a Multidisciplinary Plan of Care that may contain components documented by all disciplines (PT, OT, and ST.) PT Problem 1 PT Problem #1 Knowledge Deficit PT Goal 1 Goal / Goal Update [place] with HEP Target Visit 4 PT Goal 2 Goal / Goal Update Report no pain greater than 3/10 for 2 consecutive weeks Target Visit 8 PT Problem 2 PT Problem #2 Impaired Range of Motion PT Goal 1 Goal / Goal Update 1. Achieve 170 degrees of right shoulder flexion ROM 2. Achieve 80 degrees right shoulder external rotation ROM Target Visit 8 PT Problem 3 PT Problem #3 Impaired Strength PT Goal 1 Goal / Goal Update 1. Improve right shoulder flexion strength to 4+/5 to improve object lifting and self care 2. Improve right shoulder external rotation strength to 4+/5 to improve stability and self care Target Visit 8 PT Problem 4 PT Problem #4 Impaired Functional Mobility PT Goal 1 Goal / Goal Update Report 40% improvement in QuickDASH Target Visit 8
--- NOTE | 2024-06-25 10:06 | PTOPEVAL1 ---
Assessment and note entered by Loyd Otero, PT Evaluation Information Assessment Status Evaluation ICD-10 Condition Codes (PT) Pain in right shoulder M25.511 Onset 5+ years Subjective Information Reports that he has done a lot of heavy labor and lifting over his life and has chronic shoulder issues. He is losing a lot of sleep at night. He is getting pain radiating all the way down his arm and possibly into his hand. He has been having to use his left hand for a lot because he does not have the strength in his right. Reports that he has been having increase headaches as well. Reported Pain Level Pain Score 7: Self Report Assessment PT Clinical Summary Patient presents with shoulder ROM and strength deficits limiting functional activity, reach, and self care. Patient will benefit from skilled therapy to address deficits and assess functional progress. Ruling out structural vs functional deficits at this time. Plan of Care Interventions Electrical Stimulation,Manual Therapy,Neuro Re- education,Therapeutic Activities,Therapeutic Exercise PT Services Indicated Yes Treatment Frequency and 2x/week for 8 visits Duration These treatments will address the objective and functional deficits as defined above. The patient will be advanced safely and appropriately in order for the patient to progress towards his/her prior level of function. Additional exercises will be introduced and as well as a comprehensive home exercise program upon discharge, if needed, ?to ensure carryover of functional gains achieved in the clinic. This treatment plan has been reviewed and agreement upon by the patient.
--- NOTE | 2024-07-14 09:39 | PCPTNOTE ---
Cancelled, sick. AKS
--- NOTE | 2024-07-27 11:49 | PCPTNOTE ---
pt called and canceled today's reevaluation appt due to transportation issues.
--- NOTE | 2024-08-06 08:50 | OPREHPOC ---
Outpatient Therapy Plan of Care This is a Multidisciplinary Plan of Care that may contain components documented by all disciplines (PT, OT, and ST.) PT Problem 1 PT Problem #1 Knowledge Deficit PT Goal 1 Goal / Goal Update [place] with HEP Target Visit 4 Progress Met PT Goal 2 Goal / Goal Update Report no pain greater than 3/10 for 2 consecutive weeks Target Visit 8 Progress Partially Met PT Problem 2 PT Problem #2 Impaired Range of Motion PT Goal 1 Goal / Goal Update 1. Achieve 170 degrees of right shoulder flexion ROM 2. Achieve 80 degrees right shoulder external rotation ROM Greatly improved. Still minor shortage of goals Target Visit 8 Progress Partially Met PT Problem 3 PT Problem #3 Impaired Strength PT Goal 1 Goal / Goal Update 1. Improve right shoulder flexion strength to 4+/5 to improve object lifting and self care 2. Improve right shoulder external rotation strength to 4+/5 to improve stability and self care Target Visit 8 Progress Partially Met PT Problem 4 PT Problem #4 Impaired Functional Mobility PT Goal 1 Goal / Goal Update Report 40% improvement in QuickDASH Target Visit 8 Progress Met
--- NOTE | 2024-08-06 08:50 | PTOPDC ---
Assessment and note entered by Loyd Otero, PT Evaluation Information Assessment Status Discharge ICD-10 Condition Codes (PT) Pain in right shoulder M25.511 Onset 5+ years Subjective Information Reports that overall he feels he is doing better. Still has a catch and occasional pain with positioning especially when reaching behind his head. Feels he is sleeping better overall. Plans to continue with HEP for continuous churn buttermaker strengthening. Reported Pain Level Pain Score 2: Self Report Assessment PT Clinical Summary Patient has been compliant with presence in therapy and HEP for shoulder mobility and strength and it has been reflected in continuous churn buttermaker strengthening and functional mobility including pain. Patient fell minorly short of continuous churn buttermaker goals at this time but made excellent progress towards them and should continue to see progress. He is suitable for [facility] to [facility] at this time. Plan of Care PT Services Indicated Yes
== END 2024-08-06 11:55 | disposition home or self-care (01) ==
LOC: ANHPT 08:00
PROVIDERS: PCP Nurse Practitioner Family; Visit Provider Nurse Practitioner Family
DX: M25.511 Pain in right shoulder (principal)
CPT/HCPCS: 97014; 97110; 97140; 97161; 97530; G0283

== ENCOUNTER 2024-12-24 09:03 | Outpatient (CLI) | payer OTHER, SELFPAY ==
[2024-12-24 09:14] LABS: Hematocrit 35.6 % (42.0-52.0); Hemoglobin 11.7 g/dL (14.0-18.0); Immature Granulocyte Percent A 0.5 % (0-0.5); Lymphocytes Absolute Auto 1.24 K/mm3 (0.9-3.2); Mean Corpuscular HGB Conc 32.9 g/dl (32-36); Mean Corpuscular Hemoglobin 30.6 pg (26-34); Mean Corpuscular Volume 93.2 fl (80-100); Nucleated Red Blood Cells Absolute Auto 0.000 K/mm3 (0.0-0.012); Nucleated Red Blood Cells Perc 0.0 % (0.0-0.2); Platelet Count Result 77 k/mm3 (150-375); Red Blood Count 3.82 M/mm3 (4.6-6.20); White Blood Count 3.8 K/mm3 (4.5-10.0)
[2024-12-24 12:05] LABS: Alanine Aminotransferase 43 U/L (6-50); Albumin Level 3.7 g/dL (3.5-5.1); Alkaline Phosphatase 258 U/L (38-126); Anion Gap 6 mmol/L (4-12); Aspartate Amino Transferase 77 U/L (17-59); Bilirubin,Total 1.4 mg/dL (0.2-1.3); Blood Urea Nitrogen 17 mg/dL (9-20); Calcium 8.9 mg/dL (8.4-10.2); Carbon Dioxide 29 mmol/L (22-30); Chloride 102 mmol/L (98-107); Estimated Glomerular Filt Rate > 60; Glucose 103 mg/dL (65-110); Potassium 4.8 mmol/L (3.4-5.0); Sodium 137 mmol/L (137-145); Total Protein 7.2 g/dL (6.3-8.2)
[2024-12-24 12:45] LABS: Iron 117 ug/dL (49-181)
[2024-12-24 13:03] LABS: Percent Iron Saturation 41 % (20-50)
[2024-12-24 13:27] LABS: Ferritin 266.00 ng/mL (11.1-264)
--- OUTSIDE RECORDS SUMMARY | 2024-12-24 17:50 | XMS_ITS | Encounter Summary ---
Author Organization [facility] [employer] Address [address] [place] [address] Care Team Providers Care Ship Fitter Name Role Phone Unavailable Primary Care Provider Unavailabl e Reason for Visit * Reason Onset Date Comments labs for appt 12/23/2024 Encounter Details Date Type Department Care Team (Late st Contact Info) Description 12/23/2024 Telephone [facility] Oncology and [facility] [address] [place] [address] Yosi Caro MD [address] [place] [address] labs for appt Social History Tobacco Use Types Packs/Day Years Used Date Smoking Tobacco: Former Cigarettes 1 3 Q uit: 11/07/2018 Alcohol Use Standard Drinks/Week Comments Yes 60 (1 standard drink = 0.6 oz pu re alcohol) states he is an alcoholic Sex and Gender Information Value Date Recorded Sex Assigned at Not on file Legal Sex Male 1:29 PM CDT Gender Identity Not on file Sexual Orientation Not on file documented as of this encounter Miscellaneous Notes * Telephone Encounter - Pina Reyes - 12/23/2024 3:16 PM CST LVM for patient in regards to his labs for his appointment. He will need to have his labs done prior to his Saturday appointment. UST AND MUFFLER FITTER documented in this encounter Plan of Treatment Upcoming Encounters Date Type Department Care Team (Late st Contact Info) Description 12/25/2024 8:45 AM EXHAUST AND MUFFLER FITTER Office Visit [facility] Oncology [facility] [address] [place] [address] Yosi Caro MD [facility] [address] documented as of this encounter Visit Diagnoses Not on filedocumented in this encounter
--- OUTSIDE RECORDS SUMMARY | 2024-12-24 17:50 | XMS_ITS | Clinical Summary ---
Author Organization [facility] Address [address] [place] [address] Care Team Providers Care Global Project Manager Name Role Phone Gus Peralta MD Primary Care Provider [phone]- [phone] Social History Tobacco Use Types Packs/Day Years [...] Vaccines ( 1 - Tdap) 1992 Hepatitis A Vaccines (1 of 2 - Risk 2-dose series) 1992 Hepatitis B Vaccines (1 of 3 - 19+ 3-dose series) 1992 Pneumococcal Vaccine: 50+ Years (1 of 1 - PCV) 06/01/2023 Zoster Vaccines (1 of 2) 06/01/2023 PHQ-2 (Physician [place]) 02/19/2024 COVID-19 Vaccine (3 - 2024-2 6 season) 2024 06/20/2020, 05/27/2020 Influenza Adult (#1) 2024 Meningococcal B Vaccine Aged Out No l onger eligible based on patient's age to complete this topic Meningococcal Vaccine Aged Out No yolanda isma eligible based on patient's age to complete this topic RSV Immunizations Under 20 Months Aged Out No longer eligible b ased on patient's age to complete this topic Insurance [facility] Care Teams Global Project Manager Relationship Specialty Start Date End Date Gus Peralta MD [address] [address] PCP - General 07/06/10
--- OUTSIDE RECORDS SUMMARY | 2024-12-24 17:50 | XMS_ITS | Clinical Summary ---
Author Organization [facility] Address [address] [place] [address] Care Team Providers Care Clinical Appeals Reviewer Name Role Phone Unavailable Primary Care Provider Unavailabl e Allergies No known active allergies Medications amitriptyline (ELAVIL) 25 mg tablet 3 Active acetaminophen (TYLENOL) 500 mg tablet 3 Active ibuprofen (MOTRIN) 600 mg tablet Take 600 mg by mouth every 6 hours as needed. 3 Active folic acid (FOLVITE) 1 mg tablet Take 1 mg by mouth daily. 3 Active Vitamin B-1 100 mg tablet Take 1 Tablet by mouth daily. 3 Active multivitamin (DAILY-MEE) tablet Take 1 Tablet by mouth daily. 3 Active oxyCODONE (ROXICODONE) 5 mg tablet 3 Active gabapentin (NEURONTIN) 300 mg capsuleIndicat ions:Erythrocy tosis TAKE 1 CAPSULE(300 MG) BY MOUTH THREE TIMES DAILY 90 Capsule 4 3 Active predniSONE (DELTASONE) 20 mg tablet Take 20 mg by mouth see administration instructions. 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 01/27/2021 Encounters Date Type Department Care Team Description 12/23/2024 Telephone [facility] Oncology and Hematology - [place] [address] Yosi Caro MD labs for appt 10/06/2024 External Device Data STL ABSTRACTION Provider, Abstract from Last 3 Months Family History Medical [...] Sign Reading Time Taken Comments Blood Pressure 118/66 06/19/2024 11:27 AM CDT Pulse 79 06/19/2024 11:27 AM CDT Temperature 36.3 C (97.4 F) 06/19/2024 11:27 AM CDT Respiratory Rate 15 06/19/2024 11:27 AM CDT Oxygen Saturation 97% 06/19/2024 11:27 AM CDT Inhaled Oxygen Concentration - - Weight 97.6 kg (215 lb 3.2 oz) 06/19/2024 11:27 AM CDT Height 188 cm (6' 2) 07/26/2021 10:17 AM CDT Body Mass Index 27.63 07/26/2021 10:17 AM CDT Plan of Treatment Upcoming Encounters Date Type Department Care Team (Late st Contact Info) Description 12/25/2024 8:45 AM AUTOMOTIVE TIRE TECHNICIAN Office Visit [facility] Oncology and Hematology - [place] [address] [facility] [address] [place] [address] Yosi Caro MD [address] [facility] [address] [place] [address] Health Maintenance Due Date Last [...] (1 of 2) 06/01/2023 INFLUENZA VACCINE (#1) 2024 COVID-19 Vaccine ( season) 10/19/202404/2020, 05/27/2020 Abdominal Aortic Aneurysm (AAA) Screening Completed 01/13/2024 Insurance
--- OUTSIDE RECORDS SUMMARY | 2024-12-24 17:50 | XMS_ITS | Clinical Summary ---
Author Organization [facility] Address [address] [place] [address] Care Team Providers Care Poundmaster Name Role Phone Unavailable Primary Care Provider Unavailabl e Social History Tobacco Use Types Packs/Day Years Used Date Smoking Tobacco: Never Assessed Sex and Gender Information Value Date Recorded Sex Assigned at Not on file Legal Sex Male 1:05 PM SENIOR SERVICE AIDE Gender Identity Not on file Sexual Orientation Not on file Plan of Treatment Health Maintenance Due Date Last Done Comments Hepatitis C Virus (HCV) Screening 1973 TdaP Immunization 1973 Hepatitis B Immunization (1 of 3 - 19+ 3-dose series) 1992 Cologuard 2018 Colonoscopy 2018 Colorectal Cancer Screening 2018 Immunochemical Fecal Occult Blood 2018 Pneumococcal Immunization (5 0+ years) (1 of 1 - PCV) 06/01/2023 Zoster Immunization (1 of 2) 06/01/2023 Influenza Immunization (#1) 2024 SARS-COV-2 Immunization (3 - 2024- season) 2024 06/20/2020, 05/27/2020 Respiratory Syncytial Virus (RSV) Immunization (Adult) (1 - 1-dose 75+ series) 2048 Human Papillomavirus (HPV) Immunization Aged Out No longer eligible b ased on patient's age to complete this topic Meningococcal Immunization (ACWY) Aged Out No longer eligible b ased on patient's age to complete this topic Rotavirus Immunization Aged Out No lo nger eligible based on patient's age to complete this topic
--- OUTSIDE RECORDS SUMMARY | 2024-12-24 17:50 | XMS_ITS | Clinical Summary ---
Author Organization [facility] at [facility] Office Center Address [address] [place] [address] Care Team Providers Care Emulsion Coater Name Role Phone Mine Ventura NP Primary Care Provider Herman Bhatia MD Unavailable Zhang Simental MD Unavailable [phone] Allergies No known active allergies Medications [...] day with meals 60 tablet 04/29/19 25 026 Active sulfamethoxazole -trimethoprim (BACTRIM) 800-160 mg per tablet Take 1 tablet (160 mg of trimethoprim total) by mouth 2 (two) times a day for 7 days smx-tmp DS (BACTRIM) 800-160 mg tabs 14 tablet 11/19/19 25 025 Active Problems Problem Noted Date Diagnosed Date [...] Encounters Date Type Department Care Team Description 11/21/2024 Results Follow-Up [facility] Emergency Department [address] [place] [phone] aKya Elias NP Aerobic and anaerobic culture and gram stain Abscess Leg, left 11/18/2024 7:05 AM CDT - 11/18/2024 9:[address] [facility] Emergency Department [address] [place] [phone] Cellulitis of left lower extremity (Primary Dx); Paronychia of great toe Discharge Disposition: Discharge to home or self care from Last 3 Months Surgical History Surgery Date Site/Laterality Comments US GUIDED THORACENTESIS 12/19/2023 N/A CT CHEST TUBE INSERTION LEFT 12/24/2023 N/A US ABDOMEN COMPLETE W LIVER DOPPLER (C) 01/13/2024 Right COLOSTOMY 02/18/2022 - 02/17/2023 Medical History Medical History Date Comments Peripheral neuropathy Alcoholic History of transfusion Rib fracture [address] CHF (congestive heart failure) (HCC) Transaminitis Cirrhosis (HCC) Bilateral lower extremity edema Pleural effusion Hyponatremia Social History Tobacco Use Types Packs/Day Years Used Date Smoking Tobacco: Former Cigarettes Smokeless Tobacco: Never [facility] Utilities Answer Date Recorded In the past 12 months has th e electric, gas, oil, or water company threatened to shut off services in your home? No 01/14/2024 Social Connection and Isolation Panel Answer Date Recorded In a typical week, how many times do you talk on the phone with family, friends, or neighbors? More than three times a week 01/14/2024 How often do you get togethe r with friends or relatives? More than three times a week 01/14/2024 How often do you attend chur ch or christian services? Never 01/14/2024 Do you belong to any clubs o r organizations such as nondenominational groups, unions, fraternal or athletic groups, or [...] any time in the past 12 m [facility], were you homeless or living in a [place] health care facility (including now)? No 01/14/2024 Personal Safety Answer Date Recorded Have you ever been in or are you currently in a harmful physical or emotional relationship or is someone making you feel afraid or unsafe? Denies 11/18/2024 Sex and Gender Information Value Date Recorded Sex Assigned at Not on file Legal Sex Male 6:22 PM COLLECT ON DELIVERY CLERK Gender Identity Not on file Sexual Orientation Not on file Last Filed Vital Signs Vital Sign Reading Time Taken Comments Blood Pressure 137/76 11/18/2024 9:35 AM CDT Pulse 88 11/18/2024 9:35 AM CDT Temperature 36.9 C (98.5 F) 11/18/2024 7:02 AM CDT Respiratory Rate 18 11/18/2024 9:35 AM CDT Oxygen Saturation 100% 11/18/2024 9:35 AM CDT Inhaled Oxygen Concentration - - Weight 90.7 kg (200 lb) 11/18/2024 7:02 AM CDT Height 188 cm (6' 2) 11/18/2024 7:02 AM CDT Body Mass Index 25.68 11/18/2024 7:02 AM CDT Plan of Treatment Health Maintenance Due Date Last Done Comments Colon Cancer Screening-Colonoscopy 1973 Prostate Cancer Screening-PSA 1973 Regular Well Visit/Exam 18-64 06/01/1991 Pneumococcal vaccine <65 (1 of 2 - PCV) 1992 Zoster Vaccine (1 of 2) 06/01/2023 Covid-19 Vaccine (3 - 2024-2 6 season) 2024 06/20/2020, 05/27/2020 Influenza Vaccine (#1) 2024 Depression Screening 01/11/2025 01/12/2024, 01/12/20 DTaP/Tdap/Td Vaccine (2 - Td or Tdap) 04/30/2032 04/30/2022 Hepatitis C Screening Completed 01/15/2024 , 12/27/2023, 12/20/2023, Additional history exists Procedures Procedure Name Priority Date/Time Associated Diagnosis Comments XR TOE GREAT RIGHT ED 11/18/2024 8: 48 AM CDT XR TIBIA FIBULA LEFT 2 VIEWS ED 11/18/2024 8:48 AM CDT ADD ON LAB TEST Add-On 11/18/2024 8:38 AM CDT ADD ON LAB TEST Add-On 11/18/2024 8:38 AM CDT AEROBIC AND ANAEROBIC CULTURE AND GRAM STAIN STAT 11/18/2024 8:31 AM CDT URINALYSIS AND REFLEX TO MICROSCOPIC AND CULTURE STAT 11/18/2024 8:31 AM CDT CRP (ACUTE PHASE) STAT 11/18/2024 7:1 7 AM CDT ERYTHROCYTE SEDIMENTATION RATE STAT 11/18/2024 7:17 AM CDT EGFR STAT 11/18/2024 7:17 AM CDT DIFFERENTIAL AUTO STAT 11/18/2024 7:1 7 AM CDT SEPSIS LACTATE WITH REFLEX STAT 11/18/2024 7:17 AM CDT COMPREHENSIVE METABOLIC PANEL STAT 11/18/2024 7:17 AM CDT CBC WITH AUTO DIFFERENTIAL STAT 11/18/2024 7:17 AM CDT HEPATITIS PANEL, ACUTE Routine 5:02 AM COLLECT ON DELIVERY CLERK from Last 3 Months or Most Recently Relevant to Health Maintenance Results * XR Toe Great Right Minimum 2 Views (11/18/2024 8:48 AM CDT) Anatomical Region Laterality Modality Lower Extremities, Foot, Toes Right Co mputed Radiography 11/18/2024 9:13 AM CDT Impressions 11/18/2024 9:13 AM CDT Left tibia and fibula: Normal osseous alignment of the left tibia and fibula. No acute fracture. There is soft tissue swelling throughout the imaged portion of the left lower extremity with relatively focal soft tissue swelling anterior to the proximal shaft of the left and tibia (best seen on the lateral view) with small subcutaneous lucency, compatible with soft tissue gas. No evidence of osseous erosion of the subjacent left tibia. Recommend correlation with physical examination to exclude necrotizing skin and soft tissue infection. Right great toe: Normal osseous alignment of the right foot on this nonweightbearing examination. No acute fracture in the right great toe or elsewhere in the right foot. There is mild soft tissue swelling in the right great toe without osseous erosion] [place] negative CT and on the dome. A CT if you question is if there is gas there is gas by or soft tissue gas to suggest osteomyelitis. The Non Critical results were discussed with Mendy Saldaña NP by Dr. Coughlin on 11/18/2024 9:03 AM. Electronically signed by: Milton Coughlin M.D. Narrative 11/18/2024 9:13 AM CDT EXAMINATION: XR TIBIA FIBULA LEFT 2 VIEWS, XR TOE GREAT RIGHT MINIMUM 2 VIEWS HISTORY: Osteomyelitis. COMPARISON: None available. Procedure Note Milton Coughlin MD - 11/18/2024 EXAMINATION: XR TIBIA FIBULA LEFT 2 VIEWS, XR TOE GREAT RIGHT MINIMUM 2 VIEWS HISTORY: Osteomyelitis. COMPARISON: None available. IMPRESSION: Left tibia and fibula: Normal osseous alignment of the left tibia and fibula. No acute fracture. There is soft tissue swelling throughout the imaged portion of the left lower extremity with relatively focal soft tissue swelling anterior to the proximal shaft of the left and tibia (best seen on the lateral view) with small subcutaneous lucency, compatible with soft tissue gas. No evidence of osseous erosion of the subjacent left tibia. Recommend correlation with physical examination to exclude necrotizing skin and soft tissue infection. Right great toe: Normal osseous alignment of the right foot on this nonweightbearing examination. No acute fracture in the right great toe or elsewhere in the right foot. There is mild soft tissue swelling in the right great toe without osseous erosion] [place] negative CT and on the dome. A CT if you question is if there is gas there is gas by or soft tissue gas to suggest osteomyelitis. The Non Critical results were discussed with Mendy Saldaña NP by Dr. Coughlin on 11/18/2024 9:03 AM. Electronically signed by: Milton Coughlin M.D. us Mendy Leach NP IMG XR PROCEDURES Fi nal Result * XR Tibia Fibula Left 2 Views (11/18/2024 8:48 AM CDT) Anatomical Region Laterality Modality Lower Extremities, Lower Leg Left Com puted Radiography 11/18/2024 9:13 AM CDT Impressions 11/18/2024 9:13 AM CDT Left tibia and fibula: Normal osseous alignment of the left tibia and fibula. No acute fracture. There is soft tissue swelling throughout the imaged portion of the left lower extremity with relatively focal soft tissue swelling anterior to the proximal shaft of the left and tibia (best seen on the lateral view) with small subcutaneous lucency, compatible with soft tissue gas. No evidence of osseous erosion of the subjacent left tibia. Recommend correlation with physical examination to exclude necrotizing skin and soft tissue infection. Right great toe: Normal osseous alignment of the right foot on this nonweightbearing examination. No acute fracture in the right great toe or elsewhere in the right foot. There is mild soft tissue swelling in the right great toe without osseous erosion] [place] negative CT and on the dome. A CT if you question is if there is gas there is gas by or soft tissue gas to suggest osteomyelitis. The Non Critical results were discussed with Mendy Saldaña NP by Dr. Coughlin on 11/18/2024 9:03 AM. Electronically signed by: Milton Coughlin M.D. Narrative 11/18/2024 9:13 AM CDT EXAMINATION: XR TIBIA FIBULA LEFT 2 VIEWS, XR TOE GREAT RIGHT MINIMUM 2 VIEWS HISTORY: Osteomyelitis. COMPARISON: None available. Procedure Note Milton Coughlin MD - 11/18/2024 EXAMINATION: XR TIBIA FIBULA LEFT 2 VIEWS, XR TOE GREAT RIGHT MINIMUM 2 VIEWS HISTORY: Osteomyelitis. COMPARISON: None available. IMPRESSION: Left tibia and fibula: Normal osseous alignment of the left tibia and fibula. No acute fracture. There is soft tissue swelling throughout the imaged portion of the left lower extremity with relatively focal soft tissue swelling anterior to the proximal shaft of the left and tibia (best seen on the lateral view) with small subcutaneous lucency, compatible with soft tissue gas. No evidence of osseous erosion of the subjacent left tibia. Recommend correlation with physical examination to exclude necrotizing skin and soft tissue infection. Right great toe: Normal osseous alignment of the right foot on this nonweightbearing examination. No acute fracture in the right great toe or elsewhere in the right foot. There is mild soft tissue swelling in the right great toe without osseous erosion] [place] negative CT and on the dome. A CT if you question is if there is gas there is gas by or soft tissue gas to suggest osteomyelitis. The Non Critical results were discussed with Mendy Saldaña NP by Dr. Coughlin on 11/18/2024 9:03 AM. Electronically signed by: Milton Coughlin M.D. Mendy Leach NP IMG XR PROCEDURES Fi nal Result * CRP - Add on lab test (11/18/2024 8:38 AM CDT) Acceptable Yes Blood 11/18/2024 8:38 AM CDT 11/18/2024 8:38 AM CDT Narrative [facility] - 11/18/2024 8:38 AM CDT Name of Test->CRP Mendy Leach NP LAB BLOOD ORDERABLES Final Result [facility] [address] [email or web address] [address] * ESR - Add on lab test (11/18/2024 8:38 AM CDT) Acceptable Yes Blood 11/18/2024 8:38 AM CDT 11/18/2024 8:38 AM CDT Narrative [facility] - 11/18/2024 8:38 AM CDT Name of Test->ESR Mendy Leach AQUATIC BIOLOGIST LAB BLOOD ORDERABLES Final Result [facility] [address] Department [place] [address] * (ABNORMAL) Urinalysis reflex to microscopic and culture Urine (11/18/2024 8:31 AM CDT) Color, ur Yellow Yellow Clarity, ur Turbid(A) Clear [facility] Specific gravity, ur 1.018 1.003 - 1.030 [facility] pH, urine 6.5 [facility] Comment: Interpretive Data U rine pH is affected by diet, medications, systemic acid-base disturbances, and renal tubular function. pH may affect urinary stone formation. For example, urine pH below 6.0 may help reduce the tendency for calcium phosphate stones and pH greater than 6.0 may reduce the tendency for uric acid stone formation. Source: [facility] Current Interpretive Data was last revised on 2017 Protein, ur ql Negative Negative [facility] Glucose, ur ql Negative Negative [facility] Ketones, ur Negative Negative [facility] Bilirubin, ur Negative Negative [facility] Blood, ur Negative Negative [facility] Urobilinogen, ur 2.0(A) <2.0 mg/dL [facility] Nitrite, ur Negative Negative [facility] Leukocyte esterase, ur Negative Negative [facility] UA reflex comment Reflex conditions for microscopic UA and culture not met. [facility] Urine 11/18/2024 8:31 AM CDT 11/18/2024 8:32 AM CDT Narrative [facility] - 11/18/2024 8:45 AM CDT If patient unable to urinate, straight cath Jeancarlos De La Vega MD LAB MICROBIOLOGY - GENERAL O RDERABLES Final Result Performing Organization Address [facility] Co de Phone Number [facility] [address] [email or web address] [address] * (ABNORMAL) Aerobic and anaerobic culture and gram stain Abscess Leg, left (11/18/2024 8:31 AM CDT) [facility] Direct Specimen Exam Stain: No polymorphonuclear leukocytes seen. No organisms seen. Report Final Report: Light growth of: Coagulase negative Staphylococcus species Susceptibility not performed on this isolate (.) [facility] Organism COAGULASE NEGATIVE STAPHYLOCOCCUS SPECIES [facility] Abscess (Leg, left) 11/18/2024 8:31 AM CDT 11/18/2024 8:43 AM CDT Mendy Leach NP LAB MICROBIOLOGY - G ENERAL ORDERABLES Final Result Performing Organization Address [facility] Co de Phone Number [facility] [address] [place] [place] [address] * Sepsis Lactate w/ Reflex (11/18/2024 7:17 AM CDT) [facility] Sepsis Lactate 1.1 0.7 - 2.0 mmol/L Blood 11/18/2024 7:17 AM CDT 11/18/2024 7:20 AM CDT Jeancarlos De La Vega MD LAB BLOOD ORDERABLES Final R esult Performing Organization Address [facility] Co de Phone Number [facility] [address] Department [email or web address] [place], [place] [id number] * eGFR (11/18/2024 7:17 AM CDT) [facility] eGFR >90 >=60 mL/min/1. 73 m2 Comment: [...] interpretive data was last reviewed 2020. Blood 11/18/2024 7:17 AM CDT 11/18/2024 7:22 AM CDT us Jeancarlos De La Vega MD LAB BLOOD ORDERABLES Final R esult [facility] [address] Department [place] [address] * Differential, auto (11/18/2024 7:17 AM CDT) Neutrophil abs 2.19 1.50 - 6.50 K/cumm Imm gran abs 0.03 0.00 - 0.10 K/cumm [facility] Lymphocyte abs 0.94 0.80 - 3.30 K/cumm [facility] Monocyte abs 0.50 0.20 - 0.80 K/cumm [facility] Eosinophil abs 0.37 0.00 - 0.50 K/cumm [facility] Basophil abs 0.09 0.00 - 0.10 K/cumm [facility] Neutrophil pct 53.2 % [facility] Comment: Interpretive Data Percent cell count reference ranges are not reported, since discordance with absolute values may lead to misinterpretation of CBC data. Current Interpretive Data was last revised on 2017. Imm gran pct 0.7 % [facility] Comment: Interpretive Data Percent cell count reference ranges are not reported, since discordance with absolute values may lead to misinterpretation of CBC data. Current Interpretive Data was last revised on 2017. Lymphocyte pct 22.8 % [facility] Comment: Interpretive Data Percent cell count reference ranges are not reported, since discordance with absolute values may lead to misinterpretation of CBC data. Current Interpretive Data was last revised on 2017. Monocyte pct 12.1 % [facility] Comment: Interpretive Data Percent cell count reference ranges are not reported, since discordance with absolute values may lead to misinterpretation of CBC data. Current Interpretive Data was last revised on 2017. Eosinophil pct 9.0 % [facility] Comment: Interpretive Data Percent cell count reference ranges are not reported, since discordance with absolute values may lead to misinterpretation of CBC data. Current Interpretive Data was last revised on 2017. Basophil pct 2.2 % [facility] Comment: Interpretive Data Percent cell count reference ranges are not reported, since discordance with absolute values may lead to misinterpretation of CBC data. Current Interpretive Data was last revised on 2017. Blood 11/18/2024 7:17 AM CDT 11/18/2024 7:22 AM CDT us Jeancarlos De La Vega MD LAB BLOOD ORDERABLES Final R esult [facility] [address] Department [place] [address] * (ABNORMAL) CBC with auto differential (11/18/2024 7:17 AM CDT) WBC 4.12 3.80 - 9.90 K/cumm Hgb 11.8(L) 13.0 - 17.5 g/dL [facility] Hct 34.6(L) 38.9 - 50.3 % [facility] Plt 110(L) 150 - 400 K/cumm [facility] MPV 10.0 9.1 - 12.3 fL [facility] RBC 3.68(L) 4.30 - 5.80 M/cumm [facility] MCV 94.0 81.3 - 96.4 fL [facility] MCH 32.1 27.1 - 33.3 pg [facility] MCHC 34.1 32.3 - 35.7 g/dL [facility] RDW CV 14.5 11.1 - 14.9 % [facility] RDW SD 50.6(H) 35.7 - 48.1 fL [facility] NRBC abs 0.00 0.00 - 0.01 K/cumm [facility] Blood 11/18/2024 7:17 AM CDT 11/18/2024 7:22 AM CDT Jeancarlos De La Vega MD LAB BLOOD ORDERABLES Final R esult Performing Organization Address [facility] Co de Phone Number [facility] [address] [facility] [email or web address] [place], [place] [id number] * (ABNORMAL) Erythrocyte sedimentation rate (11/18/2024 7:17 AM CDT) Erythrocyte sedimentation rate 28(H) 1 - 20 mm/hr Blood 11/18/2024 7:17 AM CDT 11/18/2024 7:22 AM CDT Jeancarlos De La Vega MD LAB BLOOD ORDERABLES Final R esult Performing Organization Address [facility] Co de Phone Number [facility] [address] [facility] [email or web address] [address] * CRP (acute phase) (11/18/2024 7:17 AM CDT) CRP 8.6 <=10.0 mg/L Blood 11/18/2024 7:17 AM CDT 11/18/2024 7:22 AM CDT Jeancarlos De La Vega MD LAB BLOOD ORDERABLES Final R esult Performing Organization Address City/[facility] Co de Phone Number [facility] [address] [email or web address] [address] * (ABNORMAL) Comprehensive metabolic panel (11/18/2024 7:17 AM CDT) Sodium 134(L) 135 - 145 mmol/L Potassium, pl 4.3 3.3 - 4.9 mmol/L [facility] Comment:Hemolyzed; potassium value may be falsely elevated by as much as 0.3 - 0.5 mmol/L. Suggest redraw and reanalysis Chloride 101 97 - 110 mmol/L [facility] CO2 21(L) 22 - 32 mmol/L [facility] Anion gap 12 2 - 15 mmol/L [facility] BUN 10 6 - 25 mg/dL [facility] Creatinine 0.51(L) 0.80 - 1.30 mg/dL [facility] Glucose 123 70 - 199 mg/dL [facility] Comment: Interpretive Data Fasting glucose >/= 126 [...] interpretive data was last revised 2022. Calcium 8.8 8.5 - 10.3 mg/dL [facility] Bilirubin, total 2.4(H) 0.1 - 1.2 mg/dL [facility] Protein, pl 6.5 6.5 - 8.5 g/dL [facility] Albumin 3.4(L) 3.5 - 5.0 g/dL [facility] Alk phos 162(H) 40 - 130 Units/L [facility] ALT 30 7 - 55 Units/L [facility] AST 61(H) 10 - 50 Units/L [facility] Comment:Slightly Hemolyzed S pecimen Blood 11/18/2024 7:17 AM CDT 11/18/2024 7:22 AM CDT us Jeancarlos De La Vega MD LAB BLOOD ORDERABLES Final R esult [facility] [address] Department [place] [address] * Hepatitis panel, acute Blood (01/15/2024 5:02 AM COLLECT ON DELIVERY CLERK) Hep A IgM Nonreactive Nonreactive Comment: Interpretive Data: If Hep A IgM Ab is reported as Equivocal, a new sample should be drawn in two weeks for testing. Current interpretive data was last revised on 19. Hep B core IgM Nonreactive Nonreactive [facility] Comment: Interpretive Data If HepB Core IgM Ab is reported as Equivocal, a new sample should be drawn in two weeks for testing. Current interpretive data was last revised on 19. Hep C Ab Nonreactive Nonreactive [facility] Comment: Antibodies to HCV not detected. [...] revised on 2019. HepBsAg Nonreactive Nonreactive [facility] Blood 01/15/2024 5:02 AM COLLECT ON DELIVERY CLERK 01/15/2024 8:23 AM COLLECT ON DELIVERY CLERK us Luis Aiken MD LAB MICROBIOLOGY - G ENERAL ORDERABLES Final Result [facility] [address] [facility] Department [place] [address] from Last 3 Months or Most Recently Relevant to Health Maintenance Insurance [facility] Advance Directives For more information, please contact: [phone] Documents on File Type Date Recorded Patient Head Waiter/Waitress Banquet Expl anation ADVANCE DIRECTIVE 12/20/2023 3:07 PM Power of [employer] * Full Code (Latest Code Status on File) Date Activated Date Inactivated Comments 01/12/2024 10:03 PM 01/15/2024 6:06 PM * Full Code Date Activated Date Inactivated Comments 12/19/2023 2:41 PM 12/31/2023 6:14 PM * Full Code Date Activated Date Inactivated Comments 07/25/2023 1:42 AM 07/27/2023 4:38 PM Care Teams Emulsion Coater Relationship Specialty Start Date End Date Mine Ventura NP [address] [place] [address] PCP - General Nurse Practitioner 12/19/23 Herman Bhatia MD [facility] [address] Consulting Physician Pulmonary Disease 12/31/23 Zhang Simental MD [address] [address] Consulting Physician Nephrology 01/15/24
== END 2024-12-24 09:04 | disposition home or self-care (01) ==
LOC: ANHLAB 09:03
PROVIDERS: PCP Nurse Practitioner Family; Visit Provider Internal Medicine Hematology & Oncology
DX: D64.9 Anemia, unspecified (principal)
CPT/HCPCS: 36415; 80053; 82728; 83540; 83550; 85025